=== PATIENT | female | born 1985 | race Caucasian/White ===

== ENCOUNTER → 2018-01-19 14:10 | Outpatient (CLI) | payer BC, SELFPAY | PROVIDERS: Family Provider Physician Assistant; PCP Physician Assistant; Visit Provider Nurse Practitioner Women's Health | DX: R30.0 Dysuria (principal) | CPT/HCPCS: 87086 ==

== ENCOUNTER → 2018-04-24 17:49 | Outpatient (CLI) | payer BC, SELFPAY | PROVIDERS: Family Provider Physician Assistant; PCP Physician Assistant; Visit Provider Nurse Practitioner Women's Health | DX: N76.0 Acute vaginitis (principal) | CPT/HCPCS: 87070; 87086; 87205 ==

== ENCOUNTER → 2018-06-11 10:56 | Outpatient (CLI) | payer BC, SELFPAY ==
[2018-06-11 11:51] LABS: hCG Titer Quant., Serum < 1 mIU/mL (<9 non-preg)
== END ==
PROVIDERS: Family Provider Physician Assistant; PCP Physician Assistant; Referring Provider Obstetrics & Gynecology; Visit Provider Obstetrics & Gynecology
DX: N91.2 Amenorrhea, unspecified (principal)
CPT/HCPCS: 36415; 84702

== ENCOUNTER → 2018-06-26 18:30 | Outpatient (CLI) | payer BC, SELFPAY | PROVIDERS: Family Provider Physician Assistant; PCP Physician Assistant; Visit Provider Obstetrics & Gynecology | DX: R30.0 Dysuria (principal) | CPT/HCPCS: 87086; 87088 ==

== ENCOUNTER → 2018-10-08 13:45 | Outpatient (CLI) | payer BC, SELFPAY ==
[2018-10-08 14:19] LABS: hCG Titer Quant., Serum < 1 mIU/mL (<9 non-preg)
== END ==
PROVIDERS: Family Provider Physician Assistant; PCP Physician Assistant; Visit Provider Obstetrics & Gynecology
DX: N91.2 Amenorrhea, unspecified (principal)
CPT/HCPCS: 36415; 84702

== ENCOUNTER → 2018-10-12 14:53 | Outpatient (CLI) | payer BC, SELFPAY ==
[2018-10-12 15:38] LABS: hCG Titer Quant., Serum 22 mIU/mL (<9 non-preg)
== END ==
PROVIDERS: Family Provider Physician Assistant; PCP Physician Assistant; Referring Provider Obstetrics & Gynecology; Visit Provider Obstetrics & Gynecology
DX: N91.2 Amenorrhea, unspecified (principal)
CPT/HCPCS: 36415; 84702

== ENCOUNTER → 2018-10-22 11:35 | Outpatient (CLI) | payer BC, SELFPAY ==
[2018-06-21 07:55] VITALS: BMI 31.0
[2018-10-22 13:12] LABS: hCG Titer Quant., Serum 1724 mIU/mL (<9 non-preg)
== END ==
PROVIDERS: Family Provider Physician Assistant; PCP Physician Assistant; Referring Provider Obstetrics & Gynecology; Visit Provider Obstetrics & Gynecology
DX: N91.2 Amenorrhea, unspecified (principal)
CPT/HCPCS: 36415; 84702; 84703

== ENCOUNTER → 2018-11-12 07:42 | Outpatient (CLI) | payer BC, SELFPAY ==
[2018-11-12 08:23] LABS: Absolute Lymphocyte Count 3.15 X10^3/ul (0.83-4.51); Absolute Neutrophil Count 5.4 X10^3/uL (2.0-7.7); Basophil# 0.01 X10^3/uL; Basophil% 0.1 % (0-1); Eosinophils% 1.1 % (0-5); Hematocrit 44.3 % (37-47); Hemoglobin 14.3 g/dl (12.0-15.0); Lymphocyte # 3.15 X10^3/ul (4.0); Lymphocyte % 35.1 % (19-41); Mean Corp Hgb Conc 32.3 g/gl (32-36); Mean Corpuscular Hgb 28.3 pg (27.0-32.0); Mean Corpuscular Volume 87.5 fL (81-99); Mean Platelet Vol. 9.2 fl (6.2-12.0); Monocyte# 0.28 X10^3/uL; Monocyte% 3.1 % (0-10); Neutrophil # 5.42 X10^3/uL (2.7-7.7); Neutrophil % 60.4 % (47-70); Platelet Count 253 K/mm3 (150-450); RBC Distribution Width CV 13.9 % (11.6-14.6); RBC Distribution Width SD 44.2 fl (35.1-43.9); Red Blood Count 5.06 M/mm3 (4.2-5.4)
[2018-11-12 08:28] LABS: POSITIVE COUNT NO; POSITIVE DIFFERENTIAL NO; POSITIVE MORPHOLOGY NO
[2018-11-12 08:56] LABS: Glucose Challenge Gest 1H 50g 133 mg/dL (70-140)
[2018-11-12 09:47] LABS: HIV - WCH Non-Reactive (Nonreactive); Rubella IgG 30.4 IU/mL
[2018-11-12 19:01] LABS: Chlamydia Trachomatis by PCR Negative (Negative); Neisserai gonorrhoeae by PCR Negative (Negative); Probe Check PASS; Sample Adequacy Control PASS; Specimen Processing Control PASS
[2018-11-13 11:19] LABS: HEPATITIS B SURFACE AG Negative (Negative)
[2018-11-16 02:05] LABS: Rapid Plasmin Reagin (RPR) NONREACTIVE (NONREACTIVE)
== END ==
PROVIDERS: Obstetrics & Gynecology; Family Provider Physician Assistant; PCP Physician Assistant; Referring Provider Nurse Practitioner Women's Health; Visit Provider Nurse Practitioner Women's Health
DX: O99.210 Obesity complicating pregnancy, unspecified trimester (principal); Z3A.00 Weeks of gestation of pregnancy not specified
CPT/HCPCS: 36415; 82950; 85025; 86592; 86703; 86762; 86850; 86900; 87086; 87088; 87340; 87491; 87591

== ENCOUNTER → 2018-11-26 13:23 | Outpatient (CLI) | payer BC, SELFPAY ==
[2018-11-12 16:47] VITALS: BMI 31.0
== END ==
PROVIDERS: Family Provider Physician Assistant; PCP Physician Assistant; Visit Provider Obstetrics & Gynecology
DX: Z34.81 Encounter for supervision of other normal pregnancy, first trimester (principal)
CPT/HCPCS: 36415

== ENCOUNTER → 2019-01-09 14:17 | Outpatient (CLI) | payer BC, SELFPAY ==
[2019-01-09 12:07] VITALS: BMI 31.0
== END ==
PROVIDERS: Family Provider Physician Assistant; PCP Physician Assistant; Visit Provider Obstetrics & Gynecology
DX: Z36.9 Encounter for antenatal screening, unspecified (principal)
CPT/HCPCS: 36415

== ENCOUNTER → 2019-02-12 07:58 | Outpatient (CLI) | payer BC, SELFPAY ==
[2019-02-06 13:25] VITALS: BMI 31.0
== END ==
PROVIDERS: Family Provider Physician Assistant; PCP Physician Assistant; Referring Provider Nurse Practitioner Women's Health; Visit Provider Nurse Practitioner Women's Health
DX: R19.7 Diarrhea, unspecified (principal)
CPT/HCPCS: 83630; 87493; 87506

== ENCOUNTER → 2019-03-21 11:14 | Outpatient (CLI) | payer BC, SELFPAY ==
[2019-03-08 12:43] VITALS: BMI 33.2
[2019-03-21 11:31] LABS: Absolute Lymphocyte Count 3.54 X10^3/uL (0.83-4.51); Absolute Neutrophil Count 7.6 X10^3/uL (2.0-7.7); Basophil# 0.03 X10^3/uL; Basophil% 0.2 % (0-1); Eosinophil# 0.16 X10^3/uL; Eosinophils% 1.3 % (0-5); Hematocrit 37.3 % (37-47); Hemoglobin 12.7 g/dL (12.0-15.0); Lymphocyte # 3.54 X10^3/ul (4.0); Lymphocyte % 29.4 % (19-41); Mean Corpuscular Hgb 29.5 pg (27.0-32.0); Mean Corpuscular Volume 86.7 fL (81-99); Monocyte# 0.58 X10^3/uL; Monocyte% 4.8 % (0-10); NRBC Flagged by Analyzer 0 % (0-5); Neutrophil # 7.64 X10^3/uL (2.7-7.7); Neutrophil % 63.5 % (47-70); Platelet Count 222 K/mm3 (150-450); RBC Distribution Width CV 14.1 % (11.6-14.6); RBC Distribution Width SD 44.6 fl (35.1-43.9); White Blood Count 12.1 K/mm3 (4.4-11.0)
[2019-03-21 11:39] LABS: Glucose Challenge Gest 1H 50g 118 mg/dL (70-140)
== END ==
PROVIDERS: Family Provider Physician Assistant; PCP Physician Assistant; Referring Provider Obstetrics & Gynecology; Visit Provider Obstetrics & Gynecology
DX: Z34.80 Encounter for supervision of other normal pregnancy, unspecified trimester (principal); Z3A.00 Weeks of gestation of pregnancy not specified
CPT/HCPCS: 36415; 82950; 85025

== ENCOUNTER → 2019-04-01 12:20 | Outpatient (CLI) | payer BC, SELFPAY ==
[2019-03-08 12:43] VITALS: BMI 33.2
[2019-03-27 13:30] VITALS: BMI 33.2
--- NOTE | 2019-04-01 12:22 | US_ITS ---
STUDY: SECOND AND THIRD TRIMESTER OBSTETRICAL ULTRASOUND REASON FOR EXAM: Female, 33 years old. History of low-lying placenta. LMP: September 12, 2018. TECHNIQUE: Transabdominal TECHNICAL QUALITY: Adequate. PRIOR ULTRASOUND: None. FINDINGS: There is a single intrauterine fetus. The fetus is in a breech presentation. There is demonstrated cardiac activity with a heart rate of 123 bpm. There is a normal amniotic fluid volume. The largest amniotic fluid pocket measures 7.2 cm x 4.2 cm. The amniotic fluid index ([place]) is within normal limits. The placenta is posterior in location and is not low lying. The tip of the placenta is at 4 cm proximal to the cervical os. There are Grade 0 placental changes. The cervix measures 4.6 cm in length. The adnexal regions are not visualized. BIOMETRY: BPD: 6.62 cm: 26 weeks, 5 days HC: 26.06 cm: 28 weeks, 3 days AC: 25.5 cm: 29 weeks, 5 days FL: 5.1 once on the: 27 weeks, 3 days CI: 72% FL/BPD: 77% FL/HC: FL/AC: 20% HC/AC: 1.02 age by current US: 28 weeks, 1 days. MARCO by current US: June 23, 2019. Estimated weight: 1250 grams, +/- 182 grams, 32 %. Age by LMP: 28 weeks, 5 days. MARCO by LMP: June 19, 2019. US/OB Limited With Biometrics IMPRESSION: Single live intrauterine gestation with a mean gestational age of 28 weeks and 1 day. Electronically Signed: Gee Lawson, at 15:50 EDT , Service support ,
== END ==
PROVIDERS: Family Provider Physician Assistant; PCP Physician Assistant; Referring Provider Obstetrics & Gynecology; Visit Provider Obstetrics & Gynecology
DX: O44.42 Low lying placenta NOS or without hemorrhage, second trimester (principal); Z3A.00 Weeks of gestation of pregnancy not specified
CPT/HCPCS: 76816

== ENCOUNTER → 2019-04-18 12:07 | Outpatient (CLI) | payer BC, SELFPAY ==
[2019-04-12 08:28] VITALS: BMI 33.2
[2019-04-18 12:21] LABS: Protein, Urine (Random) 12.5 mg/dL (<11.9); Protein:Creat Ratio 113 mg/g CRE (0-200)
[2019-04-18 13:27] LABS: Absolute Lymphocyte Count 3.18 X10^3/uL (0.83-4.51); Absolute Neutrophil Count 8.4 X10^3/uL (2.0-7.7); Basophil# 0.02 X10^3/uL; Basophil% 0.2 % (0-1); Eosinophil# 0.08 X10^3/uL; Eosinophils% 0.6 % (0-5); Hematocrit 35.3 % (37-47); Hemoglobin 11.5 g/dL (12.0-15.0); Lymphocyte # 3.18 X10^3/ul (4.0); Lymphocyte % 25.6 % (19-41); Mean Corp Hgb Conc 32.6 g/dL (32-36); Mean Corpuscular Hgb 28.2 pg (27.0-32.0); Mean Corpuscular Volume 86.5 fL (81-99); Mean Platelet Vol. 9.5 fl (6.2-12.0); Monocyte# 0.69 X10^3/uL; Monocyte% 5.6 % (0-10); NRBC Flagged by Analyzer 0 % (0-5); Neutrophil # 8.36 X10^3/uL (2.7-7.7); Neutrophil % 67.3 % (47-70); Platelet Count 188 K/mm3 (150-450); RBC Distribution Width CV 14.3 % (11.6-14.6); RBC Distribution Width SD 45.1 fl (35.1-43.9); Red Blood Count 4.08 M/mm3 (4.2-5.4); White Blood Count 12.4 K/mm3 (4.4-11.0)
[2019-04-18 14:11] LABS: ALB/GLOB Ratio 0.6 RATIO (0.9-2.4); AST(SGOT) 12 U/L (15-37); Alanine Aminotransfer ALT/SGPT 15 U/L (13-56); Albumin, Serum 2.6 g/dL (3.2-5.0); Alkaline Phosphatase 101 U/L (45-117); Anion Gap 8 (5-15); BUN 7 mg/dL (7-18); BUN/Creat Ratio 11.1 RATIO (10-20); Calcium,Total 8.8 mg/dL (8.5-10.1); Chloride 109 mmol/L (98-107); Creatinine, Serum 0.63 mg/dL (0.55-1.02); EST Glomerular Filtration Rate 117 mL/min (>60); Est Glom Filt Rate - Afr Amer 141 mL/min (>60); Globulin 4.4 g/dL (2.2-4.2); Glucose 96 mg/dL (74-106); LDH 193 U/L (84-246); Potassium 3.8 mmol/L (3.5-5.1); Sodium Level 138 mmol/L (136-145); Uric Acid 3.6 mg/dL (2.6-6.0)
== END ==
LOC: LABSPEC 12:08 → LAB 12:20
PROVIDERS: Family Provider Physician Assistant; PCP Physician Assistant; Referring Provider Nurse Practitioner Women's Health; Visit Provider Nurse Practitioner Women's Health
DX: O13.9 Gestational [pregnancy-induced] hypertension without significant proteinuria, unspecified trimester (principal); Z3A.00 Weeks of gestation of pregnancy not specified
CPT/HCPCS: 36415; 80053; 82570; 83615; 84156; 84550; 85025

== ENCOUNTER 2019-04-19 15:51 | Outpatient (CLI) | payer BC, SELFPAY ==
[2019-04-12 08:28] VITALS: BMI 33.2
[2019-04-19 16:13] LABS: Protein, Urine (Random) 12.7 mg/dL (<11.9); Protein:Creat Ratio 192 mg/g CRE (0-200)
[2019-04-19 17:14] VITALS: BMI 35.2
[2019-04-19 17:46] LABS: Hematocrit 35.3 % (37-47); Hemoglobin 11.6 g/dL (12.0-15.0); Mean Corp Hgb Conc 32.9 g/dL (32-36); Mean Corpuscular Hgb 28.1 pg (27.0-32.0); Mean Corpuscular Volume 85.5 fL (81-99); Mean Platelet Vol. 9.4 fl (6.2-12.0); Platelet Count 174 K/mm3 (150-450); RBC Distribution Width CV 14.1 % (11.6-14.6); RBC Distribution Width SD 44.2 fl (35.1-43.9); Red Blood Count 4.13 M/mm3 (4.2-5.4); White Blood Count 11.9 K/mm3 (4.4-11.0)
[2019-04-19 17:59] LABS: AST(SGOT) 13 U/L (15-37); Alanine Aminotransfer ALT/SGPT 14 U/L (13-56); Creatinine, Serum 0.52 mg/dL (0.55-1.02); EST Glomerular Filtration Rate 144 mL/min (>60); Est Glom Filt Rate - Afr Amer 175 mL/min (>60); Estimated Creatinine Clearance 129.67 ml/min; Uric Acid 3.4 mg/dL (2.6-6.0)
--- NOTE | 2019-04-19 18:19 | OB.TRI.NOTE ---
- Problem List (1) Elevated blood pressure affecting in third trimester, antepartum Status: Acute History of Present Illness Date of Service: 04/23/19 Was patient seen by the physician?: Yes Reason For Visit: R/O PRE E Date of Service: 04/19/19 Final MARCO Source: LMP History of Present Illness: Patient presents secondary to elevated blood pressures in the office. Normal blood pressures on labor and delivery and normal labs. Negative proteinuria. Allergies hydrocodone Allergy (Verified 04/12/19 08:10) Rash Sulfa (Sulfonamide Antibiotics) Allergy (Verified 04/12/19 08:10) Rash - Pertinent Past Medical History Medical History: Past Medical History (Last Reviewed 04/12/19 @ 08:10 by Chantel Machado) Abnormal Pap smear of cervix Anxiety Iron deficiency anemia during Kidney stones Thyromegaly Surgical History: Past Surgical History (Last Reviewed 04/12/19 @ 08:10 by Chantel Machado) H/O colonoscopy H/O colposcopy with cervical biopsy H/O lithotripsy H/O tooth extraction History of esophagogastroduodenoscopy (EGD) History of tonsillectomy S/P bunionectomy left foot S/P cholecystectomy Laboratory Studies: Laboratory Tests 04/19/19 04/19/19 04/19/19 Range/Units 17:35 17:35 17:35 WBC 11.9 H (4.4-11.0) K/mm3 RBC 4.13 L (4.2-5.4) M/mm3 Hgb 11.6 L (12.0-15.0) g/dL Hct 35.3 L (37-47) % MCV 85.5 (81-99) fL MCH 28.1 (27.0-32.0) pg MCHC 32.9 (32-36) g/dL RDW Std Deviation 44.2 H (35.1-43.9) fl RDW Coeff of Yuni 14.1 (11.6-14.6) % Plt Count 174 (150-450) K/mm3 MPV 9.4 (6.2-12.0) fl PT Cancelled INR Cancelled APTT Cancelled Creatinine 0.52 L (0.55-1.02) mg/dL Estim Creat Clear Calc 129.67 ml/min Est GFR (MDRD) Af Amer 175 (>60) mL/min Est GFR (MDRD) Non-Af 144 (>60) mL/min Uric Acid 3.4 (2.6-6.0) mg/dL AST 13 L (15-37) U/L ALT 14 (13-56) U/L U Random Total Protein (<11.9) mg/dL Urine Creatinine (NO RANGE EST.) mg/dL Protein/Creatinin Ratio (0-200) mg/g CRE 04/19/19 Range/Units 15:59 WBC (4.4-11.0) K/mm3 RBC (4.2-5.4) M/mm3 Hgb (12.0-15.0) g/dL Hct (37-47) % MCV (81-99) fL MCH (27.0-32.0) pg MCHC (32-36) g/dL RDW Std Deviation (35.1-43.9) fl RDW Coeff of Yuni (11.6-14.6) % Plt Count (150-450) K/mm3 MPV (6.2-12.0) fl PT INR APTT Creatinine (0.55-1.02) mg/dL Estim Creat Clear Calc ml/min Est GFR (MDRD) Af Amer (>60) mL/min Est GFR (MDRD) Non-Af (>60) mL/min Uric Acid (2.6-6.0) mg/dL AST (15-37) U/L ALT (13-56) U/L U Random Total Protein 12.7 H (<11.9) mg/dL Urine Creatinine 66.20 (NO RANGE EST.) mg/dL Protein/Creatinin Ratio 192 (0-200) mg/g CRE NST - FHR Rate Baby A Baseline: 140 Variability:: Moderate Accelerations:: 15 x 15 Decelerations:: None NST Reactive:: Yes FHR Category:: Category I Uterine Activity:: no Regular contractions Impression/Plan Elevated blood pressure in the office repeat blood pressures on labor and delivery within normal limits laboratory evaluation and urine negative for preeclampsia category 1 tracing reactive NST recommend steroid course due to initial dose already being given and recommend follow-up in office checking blood pressures over the weekend at home. Multi Select Codes - Urinary/Genital Urinary/Genital CPT Codes: 24446-13 non-stress test Interp
== END 2019-04-19 18:40 | disposition home or self-care (01) ==
LOC: LABSPEC 15:53 → WPOUT 16:59 → WP 17:00
PROVIDERS: Family Provider Physician Assistant; PCP Physician Assistant; Referring Provider Obstetrics & Gynecology; Visit Provider Obstetrics & Gynecology
DX: O26.893 Other specified pregnancy related conditions, third trimester (principal); R03.0 Elevated blood-pressure reading, without diagnosis of hypertension; O99.013 Anemia complicating pregnancy, third trimester; D50.9 Iron deficiency anemia, unspecified; F41.9 Anxiety disorder, unspecified; Z88.5 Allergy status to narcotic agent; Z88.2 Allergy status to sulfonamides; Z87.442 Personal history of urinary calculi; Z3A.00 Weeks of gestation of pregnancy not specified
CPT/HCPCS: 36415; 59025; 59050; 82565; 82570; 84156; 84450; 84460; 84550; 85027; 99218; G0378

== ENCOUNTER → 2019-05-13 08:31 | Outpatient (CLI) | payer BC, SELFPAY ==
[2019-05-07 15:11] VITALS: BMI 35.4
== END ==
PROVIDERS: Family Provider Physician Assistant; PCP Physician Assistant; Referring Provider Nurse Practitioner Women's Health; Visit Provider Nurse Practitioner Women's Health
DX: J02.9 Acute pharyngitis, unspecified (principal)
CPT/HCPCS: 87880

== ENCOUNTER → 2019-05-24 14:03 | Outpatient (CLI) | payer BC, SELFPAY ==
[2019-05-24 13:26] VITALS: BMI 35.4
== END ==
PROVIDERS: Family Provider Physician Assistant; PCP Physician Assistant; Visit Provider Obstetrics & Gynecology
DX: N89.8 Other specified noninflammatory disorders of vagina (principal); Z3A.36 36 weeks gestation of pregnancy
CPT/HCPCS: 87070; 87077; 87081; 87186; 87205

== ENCOUNTER 2019-06-18 04:20 | Inpatient (IN) | payer BC, SELFPAY ==
[2019-06-12 08:06] VITALS: BMI 35.4
[2019-06-18 05:08] VITALS: BMI 36.8
[2019-06-18] MEDS: Lactated Ringers 500 ML 999 ML IV ×3 (05:30→13:35)
[2019-06-18] MEDS: Lactated Ringers 1,000 ML 50 ML IV (05:44)
[2019-06-18 05:48] LABS: Absolute Lymphocyte Count 3.02 X10^3/uL (0.83-4.51); Absolute Neutrophil Count 10.6 X10^3/uL (2.0-7.7); Basophil# 0.04 X10^3/uL; Basophil% 0.3 % (0-1); Eosinophil# 0.22 X10^3/uL; Eosinophils% 1.5 % (0-5); Hemoglobin 11.4 g/dL (12.0-15.0); Lymphocyte # 3.02 X10^3/ul (4.0); Lymphocyte % 20.3 % (19-41); Mean Corp Hgb Conc 31.7 g/dL (32-36); Mean Corpuscular Hgb 25.4 pg (27.0-32.0); Mean Corpuscular Volume 80.4 fL (81-99); Mean Platelet Vol. 9.6 fl (6.2-12.0); NRBC Flagged by Analyzer 0 % (0-5); Neutrophil # 10.62 X10^3/uL (2.7-7.7); Neutrophil % 71.2 % (47-70); Platelet Count 193 K/mm3 (150-450); RBC Distribution Width CV 15.9 % (11.6-14.6); RBC Distribution Width SD 45.4 fl (35.1-43.9); Red Blood Count 4.48 M/mm3 (4.2-5.4); White Blood Count 14.9 K/mm3 (4.4-11.0)
[2019-06-18] MEDS: Ondansetron 4 MG/2 ML Vial IV ×2 (06:13→14:36)
[2019-06-18] MEDS: fentaNYL-bupivacaine (epidural) 100 ML BAG EPIDURAL ×2 (06:59→11:26)
[2019-06-18] MEDS: Amnioinfusion- 0.9% NS 1,000 ML IV.SOLN. INTRA-UTER (08:04)
--- NOTE | 2019-06-18 09:55 | HP.PCM_ITS ---
- Problem List (1) PROM (premature rupture of membranes) Status: Acute (2) Positive GBS test Status: Acute Comment: Penicillin at delivery (3) Shingles outbreak Status: Acute Comment: 03/27/20 treated (4) screening encounter Status: Acute Comment: NIPT low risk- male- AFP-negative (5) HSV (herpes simplex virus) infection Status: Acute Comment: valtrex starting at 36 weeks (6) Supervision of other normal Status: Acute Comment: PRR MARCO 06/19/19 Boy: Salo Sanchez Spouse TJ (7) Status: Acute Qualifiers: Weeks of gestation: 39 weeks Qualified Code(s): Z3A.39 - 39 weeks gestation of Comment: genetic-low risk (male) (8) History of depression Status: Chronic Comment: no meds (9) Crohns disease Status: Chronic Qualifiers: Gastrointestinal tract location: unspecified location Digestive disease complication type: without complication Qualified Code(s): K50.90 - Crohn's disease, unspecified, without complications Comment: no meds. remission History Date of Admission: 06/29/17 Final MARCO: 06/19/19 Final MARCO Source: LMP Gestational age: 40 Weeks and 0 Days History of this : This is a 34 year-old, at 39 weeks gestational age presents in active labor with premature rupture of membranes but some contractions.. Patient denies any vaginal bleeding but admits copious amounts of clear fluid since 230 this morning she has had an uncomplicated . Medical History: Medical History (Last Reviewed 06/12/19 @ 08:06 by Chantel Machado) Abnormal Pap smear of cervix R87.619 Anxiety F41.9 Iron deficiency anemia during O99.019, D50.9 Kidney stones N20.0 Thyromegaly E01.0 Surgical History: Surgical History (Last Reviewed 06/12/19 @ 08:06 by Chantel Machado) H/O colonoscopy Z98.890 H/O colposcopy with cervical biopsy Z98.890 H/O lithotripsy Z98.890 H/O tooth extraction K08.409 History of esophagogastroduodenoscopy (EGD) Z98.890 History of tonsillectomy Z90.89 S/P bunionectomy Z98.890 left foot S/P cholecystectomy Z90.49 Allergies hydrocodone Allergy (Verified 06/18/19 05:08) Rash Sulfa (Sulfonamide Antibiotics) Allergy (Verified 06/18/19 05:08) Rash Home Medications: Home Medications vitamin#30 30 mg iron-10 mg iron-folic acid 1 mg-omg3 capsule 1 cap PO DAILY cap 04/12/19 Citalopram Hydrobromide [Citalopram HBr] 40 mg PO DAILY 06/18/19 Ranitidine HCl 150 mg PO BID 06/18/19 Valacyclovir HCl [Valtrex] 500 mg PO QDAY 06/18/19 Smoking Status: Never smoker Alcohol: None Number of Fetus(es): 1 NST - FHR Rate Baby A Baseline: 130 Variability:: Moderate Accelerations:: 15 x 15 Decelerations:: Prolonged - Occasional NST Reactive:: Yes FHR Category:: Category II Uterine Activity:: Every 5 to 10 minutes History Past Pregnancies: Past Pregnancies previous term vaginal delivery uncomplicated SROM Labs: Mom's Labs & Results 06/18/19 06/18/19 05:30 05:30 WBC 14.9 H RBC 4.48 Hgb 11.4 L Hct 36.0 L MCV 80.4 L MCH 25.4 L MCHC 31.7 L RDW Std Deviation 45.4 H RDW Coeff of Yuni 15.9 H Plt Count 193 MPV 9.6 Immature Gran % (Auto) 0.700 Neut % (Auto) 71.2 H Lymph % (Auto) 20.3 Grady % (Auto) 6.0 Eos % (Auto) 1.5 Baso % (Auto) 0.3 Absolute Neuts (auto) 10.6 H Absolute Lymphs (auto) 3.02 Nucleated RBC % 0 Blood Type O POSITIVE Antibody Screen NEGATIVE Course Did the patient receive Yes care? Labs Blood Type: O RH: POSITIVE RPR/VDRL/Syphilis Nonreactive Rubella status Immune HbSAg Negative Date Done: 11/12/18 Chlamydia Negative Gonorrhea Negative HIV/AIDS Non-Reactive Group B Strep: Positive Current Obstetrical History Gestational Diabetes No Incompetent Cervix No Infertility No IUGR No Macrosomia No Hypertension/Pre-eclampsia No Placenta Previa/Abruption No PTL/PROM No Uterine anomaly No Oligohydramnios No Polyhydramnios No Multiple gestation No Past Medical History Asthma No Diabetes No Hypertension No Heart disease No Mitral valve prolapse No Neurologic/Seizure disorder/ Yes: migraines Migraines Kidney disease No: kidney stones Liver disease No Varicosities No Clotting disorders/Hx of DVT No Thyroid Dysfunction No Other medical diseases Yes: Crohn's Disease Psychiatric disorders Yes: anxiety/depression Major trauma No Abnormal PAP smear Yes Sleep apnea No Mammogram in the last 2 years No Social History Marital Status: Alleged father TJ Hx Smoking No Smoking Status Never smoker Expected Infant Delivery Method: Spontaneous Vaginal Review of Systems Constitutional: Denies: Fever, Malaise Eyes: Denies: Blurred vision, Vision Change HEENT: Denies: Head Aches, Visual Changes Cardiovascular: Denies: Chest Pain, Palpitations Respiratory: Denies: Cough, Shortness of Breath, Wheezing Gastrointestinal: Denies: Abdominal Pain, Diarrhea, Nausea, Vomiting Genitourinary: Denies: Dysuria, Hematuria Musculoskeletal: Denies: Joint Pain, Muscle pain Skin: Denies: Lesions, Rash Neurological: Denies: Blurred vision, Focal weakness, Headaches Psychiatric: Denies: Anxiety, Depression Endocrine: Denies: Heat/ Cold Intolerance Hematologic/ Lymphatic: Denies: Easy Bruising, Easy Bleeding Physical Exam General: Alert, Cooperative, No apparent distress HEENT: Atraumatic, Normocephalic. Negative for: Thyromegaly, Lymphadenopathy Cardiovascular: Regular rate Lungs: Normal air movement Abdomen: Soft, Non Tender, Gravid Neurological: Deep Tendon Reflexes 2+/4 and Symmetrical, Neuro grossly intact. Negative for: Clonus [employer]: Normal external genitalia. Negative for: Vulvar lesions Estimated gestational size: Appropriate for gestational size Presentation: Cephalic Cervix Dilation (cm): 3 Assessment/Plan All Active Problems (Last Reviewed 06/12/19 @ 08:06 by Chantel Machado) PROM (premature rupture of membranes) (Acute) Positive GBS test (Acute) Shingles outbreak (Acute) screening encounter (Acute) HSV (herpes simplex virus) infection (Acute) Supervision of other normal (Acute) (Acute) BMI 31.0-31.9,adult (Resolved) Elevated blood pressure affecting in third trimester, antepartum (Resolved) Low lying placenta nos or without hemorrhage, second trimester (Resolved) This is a 34 year-old, G 2P1 at 39 weeks gestational age presents with premature rupture of membranes Abuse positive plan penicillin Epidural as needed Expectant management with possible Pitocin augmentation if needed.
[2019-06-18] MEDS: Lactated Ringers 1,000 ML 200 ML IV (11:21)
--- NOTE | 2019-06-18 11:46 | PCM.PN.BLA ---
Progress Note Intermittent prolonged decelerations. Overall reassuring status with some cervical change. Still expectant management at this time. Now category 1 tracing. Previously category 2 with 120s to 130s moderate variability positive scalp stimulation with several prolonged decelerations down into the 70s to 80s. Isolated late decelerations. Occasional early deceleration. Will start Pitocin per protocol if reassuring status and no cervical change on next exam
[2019-06-18] MEDS: Oxytocin 30 units/NS 500 ml 30 UNITS/500 ML IV.SOLN IV (12:28)
[2019-06-18] MEDS: 0.9% Saline Lock 10 ML Syringe IV ×2 (14:36→18:11)
[2019-06-18] MEDS: Oxytocin 30 units/NS 500 ml 30 UNITS/500 ML IV.SOLN 334 UNITS IV (15:18)
[2019-06-18 18:30] VITALS: BP 110/68; PULSE 102; RESP 16; TEMP 37.3; O2SAT 96
[2019-06-18 19:50] VITALS: BP 121/65; PULSE 98; RESP 16; TEMP 36.4
[2019-06-19 00:35] VITALS: BP 113/65; PULSE 87; RESP 17; TEMP 35.8
[2019-06-19] MEDS: Naproxen 250 MG Tablet 500 MG PO ×2 (00:43→08:58)
[2019-06-19 04:20] VITALS: BP 107/67; PULSE 81; RESP 16
[2019-06-19 08:48] VITALS: BP 110/73; PULSE 80; RESP 18; TEMP 36.2
--- NOTE | 2019-06-19 08:54 | PCM.PN.OB ---
Subjective: doing well no complaints pain controlled no CP SOB N V ambulating well tolerating po lochia moderate, going well - Physical Exam Vitals/I&O's: Vital Signs Temp Pulse Resp BP Pulse Ox 97.1 F L 80 18 110/73 96 06/19/19 08:48 06/19/19 08:48 06/19/19 08:48 06/19/19 08:48 06/18/19 18:30 Oxygen Delivery Method Room Air Weight: 208 lb 1.862 oz Body Mass Index (BMI) 36.8 Intake and Output for Last 24 Hours 06/17/19 06/18/19 06/19/19 23:59 23:59 23:59 Intake Total 3526.76 / 3526.76 Output Total 1325 / 1325 Balance 2201.76 / 2201.76 General: Alert, Oriented x3 Abdomen: Soft, Non Tender, Non-Distended, - - FF below U Current Medications Acetaminophen (Tylenol) 1,000 mg PO Q8H PRN PRN PRN Reason: Pain Score 1-3/10 Bisacodyl (Dulcolax) 10 mg RECTAL UD PRN PRN Reason: If no BM Dibucaine (Dibucaine) 1 applic TOPICAL TID PRN PRN; Protocol PRN Reason: Discomfort Hydrocortisone (Hytone) 1 applic TOPICAL TID PRN PRN; Protocol PRN Reason: Discomfort Methylergonovine Maleate (Methergine) 0.2 mg IM X1 PRN PRN Reason: Excess bleeding/uterine atony Naproxen (Naprosyn) 500 mg PO Q8H PRN PRN PRN Reason: Pain Score 1-3/10 Last Admin: 06/19/19 00:43 Dose: 500 mg Documented by: Ondansetron HCl (Zofran) 4 mg IV Q4H PRN PRN PRN Reason: Nausea Oxycodone HCl (Oxyir) 5 - 10 mg PO Q4H PRN PRN PRN Reason: Pain Score 4-10/10 Senna/Docusate Sodium (Senokot-S, Shea-Colace) 1 - 2 tablet PO DAILY PRN PRN PRN Reason: Constipation Simethicone (Mylicon) 80 mg PO PCHS PRN PRN Reason: Indigestion/Stomach pain Sodium Chloride () 5 - 15 ml IV UD PRN PRN Reason: SALINE FLUSH Last Admin: 06/18/19 18:11 Dose: 10 ml Documented by: Medical Necessity - Tobacco Use Smoking Status: Never smoker Assessment/Plan All Active Problems (Last Reviewed 06/12/19 @ 08:06 by Chantel Machado) Positive GBS test (Acute) Shingles outbreak (Acute) screening encounter (Acute) HSV (herpes simplex virus) infection (Acute) Supervision of other normal (Acute) (Acute) BMI 31.0-31.9,adult (Resolved) Elevated blood pressure affecting in third trimester, antepartum (Resolved) Low lying placenta nos or without hemorrhage, second trimester (Resolved) s/p PPD # 1 1. routine post delivery care 2. breast feeding- support given 3. rh positive 4. rubella immune 5. home today
--- NOTE | 2019-06-19 08:55 | DCINST_ITS ---
Additional Instructions: If you experience any of the following, contact your healthcare provider. * Bleeding that soaks a pad every hour for 2 hours * Fever 100.4 or higher * Unrelieved incision or abdominal pain * Swelling, redness, discharge or bleeding from your incision or episiotomy site * Your incision begins to separate * Problems urinating (including inability to urinate or burning while urinating). * Visual changes * Severe headache * Flu-like symptoms * Pain or redness in one of both of your breasts * Pain, warmth, tenderness or swelling in your legs, especially the calf area * Frequent nausea and vomiting * Symptoms of depression or anxiety If you experience any of the following, call 911 or go to the nearest Emergency Room. * Chest pain * Problems breathing * Seizure activity * Partial or complete paralysis of a body part, slurred speech, weakness or drooping of the face, or a sudden inability to walk or hold your balance Allergies/Adverse Reactions: Allergies hydrocodone Allergy (Verified 06/18/19 05:08) Rash Sulfa (Sulfonamide Antibiotics) Allergy (Verified 06/18/19 05:08) Rash Medications to take at Discharge vitamin#30 30 mg iron-10 mg iron-folic acid 1 mg-omg3 capsule 1 cap PO DAILY cap 04/12/19 Citalopram Hydrobromide [Citalopram HBr] 40 mg PO DAILY 06/18/19 Ranitidine HCl 150 mg PO BID 06/18/19 Valacyclovir HCl [Valtrex] 500 mg PO QDAY 06/18/19 Primary Care Physician: Josiah Brunner PA [Primary Care Provider] - Test Results: Test results from this visit will be discussed in further detail at your follow- up appointment, if applicable.
--- NOTE | 2019-06-19 08:55 | PCM.DCVAG ---
Additional Instructions: If you experience any of the following, contact your healthcare provider. Bleeding that soaks a pad every hour for 2 hours Fever 100.4 or higher Unrelieved incision or abdominal pain Swelling, redness, discharge or bleeding from your incision or episiotomy site Your incision begins to separate Problems urinating (including inability to urinate or burning while urinating). Visual changes Severe headache Flu-like symptoms Pain or redness in one of both of your breasts Pain, warmth, tenderness or swelling in your legs, especially the calf area Frequent nausea and vomiting Symptoms of depression or anxiety If you experience any of the following, call 911 or go to the nearest Emergency Room. Chest pain Problems breathing Seizure activity Partial or complete paralysis of a body part, slurred speech, weakness or drooping of the face, or a sudden inability to walk or hold your balance Allergies/Adverse Reactions: Allergies hydrocodone Allergy (Verified 06/18/19 05:08) Rash Sulfa (Sulfonamide Antibiotics) Allergy (Verified 06/18/19 05:08) Rash Medications to take at Discharge vitamin#30 30 mg iron-10 mg iron-folic acid 1 mg-omg3 capsule 1 cap PO DAILY cap 04/12/19 Citalopram Hydrobromide [Citalopram HBr] 40 mg PO DAILY 06/18/19 Ranitidine HCl 150 mg PO BID 06/18/19 Valacyclovir HCl [Valtrex] 500 mg PO QDAY 06/18/19 Primary Care Physician: Josiah Brunner PA [Primary Care Provider] - Test Results: Test results from this visit will be discussed in further detail at your follow-up appointment, if applicable.
[2019-06-19] MEDS: Hydrocortisone 2.5% Crm 1 APPLIC TOPICAL (08:57)
[2019-06-19] MEDS: Senna/Docusate Sodium 1 Tablet PO (09:00)
[2019-06-19 12:00] VITALS: BP 122/81; PULSE 80; RESP 18; TEMP 36.5
[2019-06-19 17:41] VITALS: BP 115/85; PULSE 83; RESP 16; TEMP 36.7; O2SAT 97
--- NOTE | 2019-06-19 21:26 | PCM.OPRPT ---
Problem List (1) PROM (premature rupture of membranes) Status: Acute (2) Positive GBS test Status: Acute Comment: Penicillin at delivery (3) Shingles outbreak Status: Acute Comment: 03/27/20 treated (4) screening encounter Status: Acute Comment: NIPT low risk- male- AFP-negative (5) HSV (herpes simplex virus) infection Status: Acute Comment: valtrex starting at 36 weeks (6) Supervision of other normal Status: Acute Comment: PRR MARCO 06/19/19 Boy: Salo Sanchez Spouse TJ (7) Status: Acute Qualifiers: Weeks of gestation: 39 weeks Qualified Code(s): Z3A.39 - 39 weeks gestation of Comment: genetic-low risk (male) (8) History of depression Status: Chronic Comment: no meds (9) Crohns disease Status: Chronic Qualifiers: Gastrointestinal tract location: unspecified location Digestive disease complication type: without complication Qualified Code(s): K50.90 - Crohn's disease, unspecified, without complications Comment: no meds. remission Vaginal Delivery Maternal Presentation: Active Labor 39 weeks prom Amniotic Membrane Rupture Type: Spontaneous at home Amniotic Fluid Description: Clear Final MARCO: 06/19/19 Gestational age: 40 Weeks and 0 Days Date of Procedure: 06/18/19 Pre-Operative Diagnosis: prom Post-Operative Diagnosis: same Surgery/ Procedure Performed: Spontaneous Vaginal Delivery Type of Anesthesia: Epidural Description of Procedure: Patient began pushing and delivered the head in the ANUJ presentation. The head was delivered atraumatically. The anterior and posterior shoulders delivered without complication followed by the rest of the infant and the was placed on the maternal abdomen. Delayed cord clamping was employed for approximately 60 seconds. Cord was clamped and cut and gentle traction was applied to the cord and the placenta delivered spontaneously immediately following it was noted to be intact with three-vessel cord. The perineum and vagina were inspected and noted to have no laceration. EBL was 100 cc. Patient and infant tolerated delivery well. Presentation: ANUJ Placental Delivery Description: Spontaneous Placenta Disposition: [facility] Cord Entanglement: None Estimated Blood Loss: 100 A gender: Male Episiotomy Description: None Laceration: None Medications given after delivery: IV Pitocin Complications: None
== END 2019-06-19 18:15 | disposition home or self-care (01) | DRG 806 ==
PROVIDERS: Admitting Provider Obstetrics & Gynecology; Family Provider Physician Assistant; PCP Physician Assistant; Referring Provider Obstetrics & Gynecology; Visit Provider Obstetrics & Gynecology
DX: O42.92 Full-term premature rupture of membranes, unspecified as to length of time between rupture and onset of labor (principal); O99.62 Diseases of the digestive system complicating childbirth; K50.90 Crohn's disease, unspecified, without complications; O98.52 Other viral diseases complicating childbirth; B00.9 Herpesviral infection, unspecified; B02.9 Zoster without complications; O99.824 Streptococcus B carrier state complicating childbirth; O76 Abnormality in fetal heart rate and rhythm complicating labor and delivery; D50.9 Iron deficiency anemia, unspecified; O99.344 Other mental disorders complicating childbirth; F32.9 Major depressive disorder, single episode, unspecified; F41.9 Anxiety disorder, unspecified; Z87.442 Personal history of urinary calculi; Z3A.40 40 weeks gestation of pregnancy; Z37.0 Single live birth
CPT/HCPCS: 59050; 85025; 86850; 86900; 86901; 99218; J7030; J7120; A4216; G0378; J2405

== ENCOUNTER → 2019-08-01 12:28 | Outpatient (CLI) | payer BC, SELFPAY ==
[2019-08-01 09:44] VITALS: BMI 36.8
[2019-08-05 16:31] LABS: HPV APTIMA, High Risk Negative (Negative)
== END ==
PROVIDERS: Family Provider Physician Assistant; PCP Physician Assistant; Visit Provider Obstetrics & Gynecology
DX: Z12.4 Encounter for screening for malignant neoplasm of cervix (principal)
CPT/HCPCS: 87624; 88175; G0145

== ENCOUNTER → 2019-08-01 14:23 | Outpatient (CLI) | payer BC, SELFPAY ==
[2019-08-01 09:44] VITALS: BMI 36.8
--- NOTE | 2019-08-01 14:25 | US_ITS ---
STUDY: ULTRASOUND BREAST - LEFT REASON FOR EXAM: Female, 34 years old. Palpable lump left breast. The patient is presently lactating. TECHNIQUE: Axial and longitudinal images of the LEFT breast were performed with a high resolution ultrasound transducer. # OF IMAGES: 24 COMPARISON: None. FINDINGS: LEFT Breast: There is evidence of a 1.8 cm x 1.4 cm x 1 cm complex solid nodular density with cystic areas within the The 9:00 position breast at 3 cm from nipple. This corresponds to the palpable abnormality. This may well present dilated ducts with inspissated milk. Follow-up is recommended as well as clinical correlation. US/Breast Limited Unilateral IMPRESSION: Findings suggestive of inspissated milk within dilated ducts. Follow-up is recommended. ASSESSMENT CATEGORY: BIRADS Category 2: Benign. A letter regarding these results will be sent to the patient by the facility within 30 days. Electronically Signed: Gee Lawson, at 15:36 EST , Service support ,
== END ==
PROVIDERS: Family Provider Physician Assistant; PCP Physician Assistant; Referring Provider Obstetrics & Gynecology; Visit Provider Obstetrics & Gynecology
DX: N63.20 Unspecified lump in the left breast, unspecified quadrant (principal)
CPT/HCPCS: 76642

== ENCOUNTER → 2019-09-13 09:19 | Outpatient (CLI) | payer BC, SELFPAY ==
[2019-08-01 09:44] VITALS: BMI 36.8
--- NOTE | 2019-09-13 09:20 | BI_ITS ---
MAMMOGRAPHY - BILATERAL DIAGNOSTIC REASON FOR EXAM: Female, 34 years old. Left breast lump. PERTINENT HISTORY: Non-contributory. TECHNIQUE: Digital bilateral breast gurdeep (3D mammographic acquisition) in the CC and MLO projections. 2-D mediolateral oblique (MLO) and craniocaudad (CC) views of both breasts were obtained. CAD: Full Field Digital Mammography with Computer Added Detection was performed. COMPARISON: None. FINDINGS: Breast Composition: The breasts are extremely dense, which lowers the sensitivity of mammography. There are no dominant masses or suspicious calcifications. No other significant abnormalities are identified. BI/DIAG MAMM W/CAD, BILAT IMPRESSION: Negative diagnostic mammogram. With the patient''s history of a left breast lump, correlation with ultrasound is recommended. ASSESSMENT CATEGORY: BIRADS Category 0: Incomplete. Need additional imaging evaluation. A letter regarding these results will be sent to the patient by the facility within 30 days. Approximately 10% of breast cancers are not detected by mammography. A normal mammogram should not delay biopsy of a clinically suspicious abnormality. Electronically Signed: Gee Lawson, at 10:27 EST , Service support ,
--- NOTE | 2019-09-13 10:22 | US_ITS ---
STUDY: ULTRASOUND BREAST - LEFT REASON FOR EXAM: Female, 34 years old. Palpable lump left breast. TECHNIQUE: Axial and longitudinal images of the LEFT breast were performed with a high resolution ultrasound transducer. # OF IMAGES: 12 COMPARISON: Comparison is made with prior mammogram dated March 13, 2020 and prior ultrasound of the left breast dated August 01, 2019. FINDINGS: LEFT Breast: The palpable abnormality corresponds to a 1.9 cm x 1.5 cm x 1 cm hypoechoic slightly irregular nodule at the 9:00 position the breast is 6 cm from the nipple. This is essentially unchanged. A biopsy is recommended for further evaluation. US/Breast Limited Unilateral IMPRESSION: Persistent abnormality at the 9:00 position in the breast at 6 cm from nipple. A biopsy is recommended. The patient is not lactating at this time. ASSESSMENT CATEGORY: BIRADS Category 4: Suspicious - Biopsy Should Be Considered. A letter regarding these results will be sent to the patient by the facility within 30 days. Electronically Signed: Gee Lawson, at 8:49 EST , Service support ,
== END ==
PROVIDERS: Family Provider Physician Assistant; PCP Physician Assistant; Referring Provider Obstetrics & Gynecology; Visit Provider Obstetrics & Gynecology
DX: R92.8 Other abnormal and inconclusive findings on diagnostic imaging of breast (principal); N63.20 Unspecified lump in the left breast, unspecified quadrant
CPT/HCPCS: 76642; 77062; 77066; G0279

== ENCOUNTER → 2019-11-22 11:52 | Outpatient (CLI) | payer BC, SELFPAY ==
[2019-11-22 11:38] VITALS: BMI 36.8
[2019-11-22 13:20] LABS: T4 Free Direct 1.05 ng/dL (0.76-1.46); Thyroid Stim Hormone (TSH) 3.53 uIU/mL (0.358-3.74)
== END ==
PROVIDERS: PCP Physician Assistant; Referring Provider Obstetrics & Gynecology; Visit Provider Obstetrics & Gynecology
DX: E04.9 Nontoxic goiter, unspecified (principal)
CPT/HCPCS: 36415; 84439; 84443

== ENCOUNTER → 2019-12-10 | Outpatient (CLI) | payer BC, SELFPAY ==
--- NOTE | 2019-12-10 | IMM_PTH ---
PATIENT: FITZ NICHOLAS LOC: [facility] U#:[id number] AGE/SX: 34/F ROOM: RE12/10/[address]: Dr. Naseem Rose MD : 1985 BED: DIS: 12/10/2019 SPEC #: [id number] RECD: 12/12/19 11:22 STATUS: VIPUL RENETTA #: [id number] MEGHAN: 12/10/19 00:[address]: Naseem Rose DEPT: IMMUNOHISTOCHEMISTRY RECD BY: Sarah Dooley Tissues: A - Left breast, NOS B - Left breast, NOS Procedures: Calponin-1(initial) CK8 (add) MACRO (add) P53 (add) P40 (add) PHYSICIAN & INSTITUTION [place] [id number] SPECIMEN INFORMATION: Tissue Source: A - Left breast tissue at 9 o'clock, B - Left breast tissue at 10 o'clock Clinical Info: Left breast lump x2 Specimen Number: [id number] A & B CPT code: 23503 x2, 44235 x8 METHODOLOGY: Deparaffinized sections of prefer/formalin-fixed tissue or PAP/DQ stained slides are incubated with monoclonal/polyclonal antibodies/oligonucleotide probes. Localization is made via biotin free immunoperoxidase method. Appropriate controls are performed and reacted as expected. Results on target cell population are indicated in the following table: RESULTS: ANTIBODY / CLONE RESULT Block A P40 (BC28) positive Calponin-1 (TE659H) positive Macro (HAM-56) positive P53 (DO-7) negative CK8 ([id number]) positive Block B P40 (BC28) positive Calponin-1 (IZ268O) positive Macro (HAM-56) positive P53 (DO-7) negative CK8 ([id number]) positive These tests were developed and their performance characteristics determined by [facility]. They may not have been cleared or approved by the U.S. Food and Drug Administration. The FDA has determined that such clearance or approval is not necessary. The above immunohistochemical/dualISH markers are ordered and reviewed by the Pathologist. INTERPRETATION: A. Left breast tissue at 9 o'clock, biopsy: Benign breast tissue. B. Left breast tissue at 10 o'clock, biopsy: Benign breast tissue. AM:ankur 12/13/19
--- NOTE | 2019-12-10 | BRBX_PTH ---
PATIENT: FITZ NICHOLAS LOC: [facility]#:[id number] AGE/SX: 34/F ROOM: RE12/10/[address]: Dr. Naseem Rose MD : 1985 BED: DIS: 12/10/2019 SPEC #: [id number] RECD: 12/10/19 09:59 STATUS: VIPUL GOREMeenu #: [id number] MEGHAN: 12/10/19 00:[address]: Naseem Rose DEPT: SURGICAL PATHOLOGY RECD BY: Antwon Heard Tissues: A - Left breast, NOS B - Left breast, NOS Procedures: Surgery Specimen Level IV HEADER OPERATION: Left breast biopsy x2 PRE-OP DIAGNOSIS: Left breast lump x2 TISSUE SUBMITTED: A - Left breast tissue 9 o'clock +6, B - Left breast tissue 10 o'clock +6 MICROSCOPIC DIAGNOSIS A. Left breast at 9 o'clock, needle core biopsy: Focal intraductal hyperplasia without atypia. Fibrocystic change. Focal fat necrosis. See comment. B. Left breast at 10 o'clock, needle core biopsy: Fibrocystic change with focal changes consistent with rupture and associated benign histiocytic reaction. See comment. AM:ankur 12/11/19 COMMENT A & B. Immunohistochemistry ([id number]) supports the above diagnosis. Case has been reviewed in consultation with Dr. Johnson who concurs with the above diagnosis. IDC:SJ MICROSCOPIC DESCRIPTION Slides are reviewed. GROSS DESCRIPTION A - Received in fixative is one container labeled with the patient's name and designated left breast tissue 9 o'clock +6. The specimen consists of multiple elongated fragments of cruz-yellow fibroadipose tissue that in aggregate measure 1 x 0.3 x 0.1 cm. The entire specimen is submitted in one cassette. B - Received in fixative is one container labeled with the patient's name and designated left breast tissue 10 o'clock +6. The specimen consists of multiple elongated fragments of cruz-yellow fibroadipose tissue that in aggregate measure 1.5 x 0.3 x 0.1 cm. The entire specimen is submitted in one cassette. / MARIETTA:ankur 12/10/19 TC:5 CPT: 18276 x2
[2019-12-10 08:56] VITALS: BMI 36.8
== END | disposition home or self-care (01) ==
LOC: LABSPEC 10:14
PROVIDERS: Referring Provider Surgery; Visit Provider Surgery
DX: N63.20 Unspecified lump in the left breast, unspecified quadrant (principal)
CPT/HCPCS: 88305; 88341; 88342

== ENCOUNTER → 2019-12-30 14:57 | Outpatient (CLI) | payer BC, SELFPAY ==
[2019-11-22 11:38] VITALS: BMI 36.8
[2019-12-30 13:55] VITALS: BMI 36.8
--- NOTE | 2019-12-30 14:58 | US_ITS ---
STUDY: THYROID ULTRASOUND REASON FOR EXAM: Female, 34 years old. THYROMEGALY TECHNIQUE: Ultrasound evaluation of the thyroid was performed with real-time and static de leon-scale imaging. COMPARISON: None. FINDINGS: RIGHT LOBE: The right lobe of the thyroid gland is enlarged and measures 5.6 cm x 1.5 cm x 1.1 cm. There is a homogeneous echotexture. There are no demonstrated solid, cystic or complex lesions. LEFT LOBE: The left lobe of the thyroid gland is enlarged and measures 5.4 cm x 1.5 cm by 1.1 cm. There is a homogeneous echotexture. There are no demonstrated solid, cystic or complex lesions. ISTHMUS: The isthmus measures 2.0 mm. The regional lymph nodes are normal. US/Thyroid IMPRESSION: Thyromegaly. No nodules are seen. Electronically Signed: Gee Lawson, at 15:24 EDT , Service support ,
== END ==
PROVIDERS: PCP Physician Assistant; Visit Provider Obstetrics & Gynecology
DX: E04.9 Nontoxic goiter, unspecified (principal)
CPT/HCPCS: 76536

== ENCOUNTER → 2020-01-13 | Outpatient (CLI) | payer BC, SELFPAY ==
[2020-01-13 13:24] VITALS: BMI 36.8
[2020-01-13 16:55] LABS: Absolute Neutrophil Count 6.6 X10^3/uL (2.0-7.7); Basophil# 0.02 X10^3/uL; Basophil% 0.2 % (0-1); Eosinophil# 0.16 X10^3/uL; Eosinophils% 1.5 % (0-5); Hematocrit 44.7 % (37-47); Hemoglobin 14.3 g/dL (12.0-15.0); Lymphocyte % 30.6 % (19-41); Mean Corpuscular Hgb 27.2 pg (27.0-32.0); Mean Platelet Vol. 9.7 fl (6.2-12.0); Monocyte# 0.49 X10^3/uL; Monocyte% 4.7 % (0-10); NRBC Flagged by Analyzer 0 % (0-5); Neutrophil # 6.56 X10^3/uL (2.7-7.7); Neutrophil % 62.7 % (47-70); Platelet Count 258 K/mm3 (150-450); RBC Distribution Width CV 16.4 % (11.6-14.6); RBC Distribution Width SD 49.2 fl (35.1-43.9); Red Blood Count 5.26 M/mm3 (4.2-5.4); White Blood Count 10.5 K/mm3 (4.4-11.0)
[2020-01-13 17:08] LABS: ALB/GLOB Ratio 0.9 RATIO (0.9-2.4); AST(SGOT) 12 U/L (15-37); Alanine Aminotransfer ALT/SGPT 18 U/L (13-56); Albumin, Serum 3.6 g/dL (3.2-5.0); Alkaline Phosphatase 71 U/L (45-117); Anion Gap 7 (5-15); BUN 11 mg/dL (7-18); BUN/Creat Ratio 15.6 RATIO (10-20); Calcium,Total 9.1 mg/dL (8.5-10.1); Chloride 109 mmol/L (98-107); EST Glomerular Filtration Rate 102 mL/min (>60); Est Glom Filt Rate - Afr Amer 123 mL/min (>60); Globulin 4.2 g/dL (2.2-4.2); Glucose 77 mg/dL (74-106); Potassium 3.8 mmol/L (3.5-5.1); Protein, Total 7.8 g/dL (6.4-8.2); Sodium Level 140 mmol/L (136-145); T4 Free Direct 0.91 ng/dL (0.76-1.46); Thyroid Stim Hormone (TSH) 3.67 uIU/mL (0.358-3.74)
== END | disposition home or self-care (01) ==
LOC: LABSPEC 16:09
PROVIDERS: PCP Physician Assistant; Referring Provider Internal Medicine; Visit Provider Internal Medicine
DX: E01.0 Iodine-deficiency related diffuse (endemic) goiter (principal); F32.9 Major depressive disorder, single episode, unspecified; F41.9 Anxiety disorder, unspecified
CPT/HCPCS: 80053; 84439; 84443; 85025

== ENCOUNTER → 2020-06-08 13:51 | Outpatient (CLI) | payer BC, SELFPAY ==
[2020-02-17 13:21] VITALS: BMI 36.8
--- NOTE | 2020-06-08 13:52 | US_ITS ---
STUDY: ULTRASOUND BREAST - LEFT REASON FOR EXAM: Female, 35 years old. Palpable lump left breast. History of prior left breast biopsy. TECHNIQUE: Axial and longitudinal images of the LEFT breast were performed with a high resolution ultrasound transducer. # OF IMAGES: 72 COMPARISON: Comparison is made with prior ultrasound of the left breast dated generally 2019. FINDINGS: LEFT Breast: At the 9 o''clock position of the breast at 6 cm from the nipple, a tissue clip marker is seen from prior biopsy. There is a 1.4 cm x 1.5 cm x 0.9 cm hypoechoic density at the biopsy site. This has decreased in size as compared to prior study. Incidental note is made of a 6 mm x 7 mm x 4 mm cyst at the 8 o''clock position of the breast at 6 cm from the nipple. US/Breast Limited Unilateral IMPRESSION: 1.4 cm x 1.5 cm x 0.9 cm persistent hypoechoic density at the biopsy site with a tissue clip marker. ASSESSMENT CATEGORY: BIRADS Category 2: Benign. A letter regarding these results will be sent to the patient by the facility within 30 days. Electronically Signed: Gee Lawson, at 14:32 EDT , Service support ,
== END ==
PROVIDERS: PCP Internal Medicine; Referring Provider Surgery; Visit Provider Surgery
DX: N63.20 Unspecified lump in the left breast, unspecified quadrant (principal); Z98.890 Other specified postprocedural states
CPT/HCPCS: 76642

== ENCOUNTER → 2020-08-07 10:57 | Outpatient (CLI) | payer BC, SELFPAY ==
[2020-08-03 15:08] VITALS: BMI 32.5
[2020-08-07 11:42] LABS: Vitamin D,25 Hydroxy 17.7 ng/mL
[2020-08-07 11:47] LABS: Cholesterol 189 mg/dL (200); Glucose 89 mg/dL (74-106); High Density Lipoprotein 45 mg/dL; T4 Free Direct 0.95 ng/dL (0.76-1.46); Thyroid Stim Hormone (TSH) 3.31 uIU/mL (0.358-3.74); Triglycerides 277 mg/dL; Very Low Density Lipoprotein 55 mg/dL (5-40)
== END ==
PROVIDERS: PCP Internal Medicine; Referring Provider Obstetrics & Gynecology; Visit Provider Obstetrics & Gynecology
DX: Z13.1 Encounter for screening for diabetes mellitus (principal); Z13.21 Encounter for screening for nutritional disorder; Z13.220 Encounter for screening for lipoid disorders; Z13.29 Encounter for screening for other suspected endocrine disorder
CPT/HCPCS: 36415; 80061; 82306; 82947; 84439; 84443

== ENCOUNTER → 2020-12-14 14:18 | Outpatient (CLI) | payer BC, SELFPAY ==
[2020-08-03 15:08] VITALS: BMI 32.5
--- NOTE | 2020-12-14 14:21 | BI_ITS ---
MAMMOGRAPHY - BILATERAL DIAGNOSTIC REASON FOR EXAM: Female, 35 years old. Six-month follow-up for left breast biopsy. PERTINENT HISTORY: Non-contributory. TECHNIQUE: Digital bilateral breast gurdeep (3D mammographic acquisition) in the CC and MLO projections. 2-D mediolateral oblique (MLO) and craniocaudad (CC) views of both breasts were obtained. CAD: Full Field Digital Mammography with Computer Added Detection was performed. COMPARISON: Comparison is made with prior examination dated 09/13/2019. FINDINGS: Breast Composition: The breasts are heterogeneously dense, which may obscure small masses. There are no dominant masses or suspicious calcifications. 2 patient: Is from prior biopsy are seen in the deep slightly narrowed medial aspect of the left breast. No new mass lesion is seen. No other significant abnormalities are identified. BI/DIAG MAMM W/CAD, BILAT IMPRESSION: Stable bilateral diagnostic mammogram. Status post biopsy in the mid slightly lower medial aspect of the left breast. One year follow-up recommended. (A) ASSESSMENT CATEGORY: BIRADS Category 2: Benign. A letter regarding these results will be sent to the patient by the facility within 30 days. Approximately 10% of breast cancers are not detected by mammography. A normal mammogram should not delay biopsy of a clinically suspicious abnormality. Electronically Signed: Gee Lawson MD at 15:16 EDT , Service support ,
--- NOTE | 2020-12-14 14:21 | US_ITS ---
STUDY: ULTRASOUND BREAST - LEFT REASON FOR EXAM: Female, 35 years old. Follow-up for status post left breast biopsy. TECHNIQUE: Axial and longitudinal images of the LEFT breast were performed with a high resolution ultrasound transducer. # OF IMAGES: 51 COMPARISON: Comparison is made with prior ultrasound of the left breast dated 06/08/2020. FINDINGS: LEFT Breast: A tissue clip marker is seen within a 1.5 cm x 1.4 cm x 0.9 cm hypoechoic nodule at the 9 o''clock position of the breast at 6 cm from nipple. 6 mm x 7 mm x 3 mm cyst is seen at the 8 o''clock position of the breast at 6 sinus from the nipple. This has decreased in size. US/Breast Limited Unilateral IMPRESSION: A tissue clip marker is seen within the hypoechoic nodule at 9 o''clock position of the breast 6 cm from the nipple. ASSESSMENT CATEGORY: BIRADS Category 2: Benign. A letter regarding these results will be sent to the patient by the facility within 30 days. Electronically Signed: Gee Lawson MD at 15:43 EDT , Service support ,
== END ==
PROVIDERS: PCP Internal Medicine; Referring Provider Surgery; Visit Provider Surgery
DX: R92.8 Other abnormal and inconclusive findings on diagnostic imaging of breast (principal); N64.4 Mastodynia
CPT/HCPCS: 76642; 77062; 77066; G0279

== ENCOUNTER → 2021-04-05 14:02 | Outpatient (CLI) | payer BC, SELFPAY ==
[2021-04-05 13:23] VITALS: BMI 36.8
[2021-04-05 15:29] LABS: Absolute Lymphocyte Count 3.36 X10^3/uL (0.83-4.51); Absolute Neutrophil Count 4.4 X10^3/uL (2.0-7.7); Basophil# 0.04 X10^3/uL; Basophil% 0.5 % (0-1); Eosinophil# 0.21 X10^3/uL; Eosinophils% 2.4 % (0-5); Hematocrit 44.9 % (37-47); Hemoglobin 14.8 g/dL (12.0-15.0); Lymphocyte # 3.36 X10^3/ul (0.83-4.51); Mean Corpuscular Hgb 28.7 pg (27.0-32.0); Mean Corpuscular Volume 87.2 fL (81-99); NRBC Flagged by Analyzer 0 % (0-5); Neutrophil # 4.37 X10^3/uL (2.7-7.7); Neutrophil % 50.8 % (47-70); Platelet Count 220 K/mm3 (150-450); RBC Distribution Width SD 45.1 fl (35.1-43.9); Red Blood Count 5.15 M/mm3 (4.2-5.4); White Blood Count 8.6 K/mm3 (4.4-11.0)
[2021-04-05 16:01] LABS: ALB/GLOB Ratio 0.9 RATIO (0.9-2.4); AST(SGOT) 20 U/L (15-37); Alanine Aminotransfer ALT/SGPT 34 U/L (13-56); Albumin, Serum 3.7 g/dL (3.2-5.0); Alkaline Phosphatase 90 U/L (45-117); Anion Gap 6 (5-15); BUN 15 mg/dL (7-18); BUN/Creat Ratio 22.7 RATIO (10-20); Calcium,Total 9.3 mg/dL (8.5-10.1); Chloride 106 mmol/L (98-107); Creatinine, Serum 0.66 mg/dL (0.55-1.02); EST Glomerular Filtration Rate 109 mL/min (>60); Est Glom Filt Rate - Afr Amer 131 mL/min (>60); Globulin 4.2 g/dL (2.2-4.2); Glucose 74 mg/dL (74-106); Potassium 4.2 mmol/L (3.5-5.1); Protein, Total 7.9 g/dL (6.4-8.2); Sodium Level 139 mmol/L (136-145)
== END ==
PROVIDERS: PCP Internal Medicine; Referring Provider Physician Assistant; Visit Provider Physician Assistant
DX: I10 Essential (primary) hypertension (principal)
CPT/HCPCS: 36415; 80053; 85025

== ENCOUNTER → 2021-05-17 13:55 | Outpatient (CLI) | payer BC, SELFPAY ==
[2021-05-17 15:10] LABS: Anion Gap 7 (5-15); BUN 13 mg/dL (7-18); BUN/Creat Ratio 16.4 RATIO (10-20); Calcium,Total 10.1 mg/dL (8.5-10.1); Chloride 106 mmol/L (98-107); Creatinine, Serum 0.79 mg/dL (0.55-1.02); EST Glomerular Filtration Rate 88 mL/min (>60); Est Glom Filt Rate - Afr Amer 107 mL/min (>60); Glucose 96 mg/dL (74-106); Potassium 3.9 mmol/L (3.5-5.1); Sodium Level 138 mmol/L (136-145)
== END ==
PROVIDERS: PCP Internal Medicine; Referring Provider Physician Assistant; Visit Provider Physician Assistant
DX: I10 Essential (primary) hypertension (principal)
CPT/HCPCS: 36415; 80048

== ENCOUNTER 2021-06-14 13:17 | Outpatient (RCR) | payer BC, SELFPAY ==
[2021-04-05 13:23] VITALS: BMI 36.8
== END 2021-06-27 23:59 ==
LOC: NS 13:17
PROVIDERS: PCP Internal Medicine; Visit Provider Physician Assistant
DX: Z71.3 Dietary counseling and surveillance (principal); E66.9 Obesity, unspecified; Z68.32 Body mass index [BMI] 32.0-32.9, adult
CPT/HCPCS: 97802

== ENCOUNTER 2021-11-30 11:59 | Outpatient (CLI) | payer BC, SELFPAY ==
[2021-11-30 15:37] LABS: Anion Gap 5 (5-15); BUN 15 mg/dL (7-18); BUN/Creat Ratio 15.7 RATIO (10-20); Chloride 107 mmol/L (98-107); Creatinine, Serum 0.96 mg/dL (0.55-1.02); EST Glomerular Filtration Rate 71 mL/min (>60); Est Glom Filt Rate - Afr Amer 86 mL/min (>60); Glucose 87 mg/dL (74-106); Potassium 3.5 mmol/L (3.5-5.1); Sodium Level 139 mmol/L (136-145)
== END 2021-11-30 23:59 | disposition home or self-care (01) ==
LOC: BIMLAB 12:00
PROVIDERS: PCP Internal Medicine; Referring Provider Internal Medicine; Visit Provider Internal Medicine
DX: I10 Essential (primary) hypertension (principal)
CPT/HCPCS: 36415; 80048

== ENCOUNTER → 2022-04-18 | Outpatient (CLI) | payer BC, SELFPAY ==
--- NOTE | 2022-04-18 07:51 | US_ITS ---
EXAM: US PELVIS TRANSVAGINAL CLINICAL INDICATION: pelvic pain TECHNIQUE: Transvaginal pelvic ultrasound was performed with grayscale and color Doppler imaging. Transvaginal imaging was used for better evaluation of the endometrium and adnexa. This report was created using [employer] report [email or web address] technology. COMPARISON: None. FINDINGS: UTERUS/CERVIX: Uterus measures 10.1 x 4.6 x 6.3 cm. The endometrium measures 1.4 cm. Anteverted. There is no uterine mass. RIGHT OVARY: The right ovary measures 3.2 x 3.4 x 2.1 cm. Blood flow is present in the right ovary. LEFT OVARY: The left ovary measures 2.9 x 3.2 x 2.1 cm. Blood flow is present in the left ovary. FREE FLUID: None. BLADDER: Empty bladder which cannot be evaluated with this probe. US/Transvaginal Non- IMPRESSION: Mildly thickened endometrium which may be due to the patient''s menstrual cycle. No other abnormalities are identified. Electronically Signed: Toro Tobin MD at 2:29 EDT ,
--- NOTE | 2022-04-18 07:51 | US_ITS ---
EXAM: US PELVIS TRANSVAGINAL CLINICAL INDICATION: pelvic pain TECHNIQUE: Transvaginal pelvic ultrasound was performed with grayscale and color Doppler imaging. Transvaginal imaging was used for better evaluation of the endometrium and adnexa. This report was created using [employer] report [employer] technology. COMPARISON: None. FINDINGS: UTERUS/CERVIX: Uterus measures 10.1 x 4.6 x 6.3 cm. The endometrium measures 1.4 cm. Anteverted. There is no uterine mass. RIGHT OVARY: The right ovary measures 3.2 x 3.4 x 2.1 cm. Blood flow is present in the right ovary. LEFT OVARY: The left ovary measures 2.9 x 3.2 x 2.1 cm. Blood flow is present in the left ovary. FREE FLUID: None. BLADDER: Empty bladder which cannot be evaluated with this probe. US/Pelvic (Non ) IMPRESSION: Mildly thickened endometrium which may be due to the patient''s menstrual cycle. No other abnormalities are identified. Electronically Signed: Toro Tobin MD at 2:29 EDT ,
== END | disposition home or self-care (01) ==
PROVIDERS: PCP Internal Medicine; Referring Provider Obstetrics & Gynecology; Visit Provider Obstetrics & Gynecology
DX: R10.2 Pelvic and perineal pain (principal)
CPT/HCPCS: 76830; 76856; 93976

== ENCOUNTER → 2022-05-23 | Outpatient (CLI) | payer BC, SELFPAY ==
[2022-05-23 12:14] LABS: Absolute Lymphocyte Count 3.83 X10^3/uL (0.83-4.51); Basophil# 0.04 X10^3/uL; Basophil% 0.5 % (0-1); Eosinophil# 0.21 X10^3/uL; Eosinophils% 2.5 % (0-5); Hematocrit 43.9 % (37-47); Hemoglobin 14.6 g/dL (12.0-15.0); Lymphocyte # 3.83 X10^3/ul (0.83-4.51); Lymphocyte % 44.8 % (19-41); Mean Corp Hgb Conc 33.3 g/dL (32-36); Mean Corpuscular Hgb 29.3 pg (27.0-32.0); Mean Corpuscular Volume 88.2 fL (81-99); Mean Platelet Vol. 9.3 fl (6.2-12.0); Monocyte# 0.41 X10^3/uL; Monocyte% 4.8 % (0-10); NRBC Flagged by Analyzer 0 % (0-5); Neutrophil # 4.03 X10^3/uL (2.7-7.7); Platelet Count 220 K/mm3 (150-450); RBC Distribution Width SD 45.2 fl (35.1-43.9); Red Blood Count 4.98 M/mm3 (4.2-5.4); White Blood Count 8.6 K/mm3 (4.4-11.0)
[2022-05-23 15:54] LABS: ALB/GLOB Ratio 0.9 RATIO (0.9-2.4); AST(SGOT) 26 U/L (15-37); Alanine Aminotransfer ALT/SGPT 44 U/L (13-56); Albumin, Serum 3.5 g/dL (3.2-5.0); Alkaline Phosphatase 78 U/L (45-117); Anion Gap 9 (5-15); BUN 15 mg/dL (7-18); BUN/Creat Ratio 19.2 RATIO (10-20); Calcium,Total 8.9 mg/dL (8.5-10.1); Chloride 108 mmol/L (98-107); Cholesterol 160 mg/dL (200); Creatinine, Serum 0.78 mg/dL (0.55-1.02); EST Glomerular Filtration Rate 89 mL/min (>60); Est Glom Filt Rate - Afr Amer 108 mL/min (>60); Globulin 3.9 g/dL (2.2-4.2); Glucose 115 mg/dL (74-106); High Density Lipoprotein 33 mg/dL; Potassium 3.6 mmol/L (3.5-5.1); Protein, Total 7.4 g/dL (6.4-8.2); Sodium Level 140 mmol/L (136-145); T4 Free Direct 0.86 ng/dL (0.76-1.46); Thyroid Stim Hormone (TSH) 2.76 uIU/mL (0.358-3.74); Triglycerides 340 mg/dL; Very Low Density Lipoprotein 68 mg/dL (5-40)
== END | disposition home or self-care (01) ==
LOC: BIMLAB 11:08
PROVIDERS: PCP Internal Medicine; Visit Provider Internal Medicine
DX: I10 Essential (primary) hypertension (principal); F41.9 Anxiety disorder, unspecified; F32.9 Major depressive disorder, single episode, unspecified
CPT/HCPCS: 36415; 80053; 80061; 84439; 84443; 85025

== ENCOUNTER → 2022-07-20 | Outpatient (CLI) | payer BC, SELFPAY ==
[2022-07-20 11:24] LABS: Hematocrit 43.9 % (37-47); Hemoglobin 15.3 g/dL (12.0-15.0); Mean Corp Hgb Conc 34.9 g/dL (32-36); Mean Corpuscular Hgb 29.9 pg (27.0-32.0); Mean Corpuscular Volume 85.7 fL (81-99); Mean Platelet Vol. 8.5 fl (6.2-12.0); Platelet Count 241 K/mm3 (150-450); RBC Distribution Width CV 13.7 % (11.6-14.6); RBC Distribution Width SD 42.8 fl (35.1-43.9); Red Blood Count 5.12 M/mm3 (4.2-5.4); White Blood Count 8.9 K/mm3 (4.4-11.0)
[2022-07-20 11:39] LABS: Anion Gap 4 (5-15); BUN 15 mg/dL (7-18); BUN/Creat Ratio 17.9 RATIO (10-20); Calcium,Total 9.6 mg/dL (8.5-10.1); Chloride 106 mmol/L (98-107); Creatinine, Serum 0.84 mg/dL (0.55-1.02); EST Glomerular Filtration Rate 82 mL/min (>60); Est Glom Filt Rate - Afr Amer 99 mL/min (>60); Glucose 88 mg/dL (74-106); Magnesium 2.2 mg/dL (1.6-2.6); Potassium 3.7 mmol/L (3.5-5.1); Sodium Level 140 mmol/L (136-145)
== END | disposition home or self-care (01) ==
LOC: PAVLAB 10:59
PROVIDERS: Anesthesiology; PCP Internal Medicine; Referring Provider Obstetrics & Gynecology; Visit Provider Obstetrics & Gynecology
DX: Z01.818 Encounter for other preprocedural examination (principal)
CPT/HCPCS: 36415; 80048; 83735; 85027; 86850; 86900; 86901; 86920

== ENCOUNTER 2022-08-02 12:51 | Inpatient (IN) | payer BC, SELFPAY ==
--- NOTE | 2022-07-20 10:48 | PCM.HP.BLA ---
History and Physical Date of Admission: 08/02/22 [facility] [address] [place] [address] OFFICE VISIT Date of Service:? 07/20/22 ?H&P Intake Vital Signs ? 07/20/2210:07 07/20/2210:25 Height 5 ft 3 in 5 ft 3 in Weight: ? 218 lb 6 oz BMI ? 38.7 BP ? 134/88 H Intake Visit Reasons:?robotic hyst. 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 Required: No &PIs patient in pain?: No Allergies guaifenesin [From Mucinex] Allergy (Mild, Verified 07/20/22 10:26) chest painhydrocodone Allergy (Verified 07/20/22 10:26) RashSulfa (Sulfonamide Antibiotics) Allergy (Verified 07/20/22 10:26) Rash Medications duloxetine 30 mg capsule,delayed release 30 mg PO BID #180 caps 10/29/21 [Rx Confirmed 07/20/22] hydrochlorothiazide 25 mg tablet 25 mg PO DAILY #90 tabs 10/29/21 [Rx Confirmed 07/20/22] bupropion HCl 300 mg 24 hr tablet, extended release 300 mg PO QAM 3 months #90 tabs 06/27/22 [Rx Confirmed 07/20/22] sumatriptan succinate 25 mg tablet 25 mg PO PRN PRN MIGRAINES 07/19/22 [History Confirmed 07/20/22] Post menopausal: No Patient : No : No PFSH Medical History? Abnormal Pap smear of cervix Abnormal ultrasound of breast Acute sinusitis, unspecified Anxiety Blocked lacrimal duct Crohn's disease Depression Heartburn Hypertension Hypertension Iron deficiency anemia during Low iron Migraine headache Non-smoker Posterior right knee pain Right knee pain Thyromegaly Surgical History? H/O colonoscopy H/O colposcopy with cervical biopsy H/O lithotripsy H/O tooth extraction History of esophagogastroduodenoscopy (EGD) History of tonsillectomy S/P bunionectomy S/P cholecystectomy Family History? Grandmother Bladder cancer Diabetes CAD (coronary artery disease) LeukemiaGrandfather Heart disease CAD (coronary artery disease)Mother Depression with anxietyFather Hypothyroidism Hypertension Kidney stones Depression with anxiety Social History? Smoking Status:? Never smoker alcohol intake:? current details:? social substance use type:? does not use caffeine:? Yes what type of physical activity do you participate in:? walking frequency:? 5-6 times per week seatbelt use:? always do you feel safe at home:? Yes additional social history:? TJ- SAHM HPI robotic hyst. Details: FITZ NICHOLAS is a 37 year old who presents for pre-op Robotic hysterectomy.? She is a (vaginal deliveries) and has tried orilissa and ocps. She states that she had the expected hot flashes, headaches, and mood swings but also had horrible nightmares and stopped taking the medication. ultrasound showed a 10.1 cm uterus with increased vascularity suspicious for pelvic congestion and possible adenomyosis based also on her symptoms of pain with intercourse and severe pain with menses. She states that her first day of menses is a large gush of blood and it is heavy throughout. She has tried OCPs with minimal relief and is not interested in an ablation or IUD. Her had a vasectomy and she is 100% certain that she does not want another baby. 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 History ? ? ? 2 ? Elective abortions ? Hx Para ? ? ? 2 ? Spontaneous abortions ? Hx # Term Pregnancies ? Ectopic pregnancies ? Hx # Pregnancies ? Multiple births ? # of living children ? ? ? 2 Past Pregnancies Del. Date Name GA/Weeks Outcome Route Bth Weight Gen Labor Lgth Anesthesia Del Locatn Provider FOB 06/29/17 Daniel 40 live - full term 7lbs 9oz Male 8 hours epidural [facility] 06/18/19 Salo 39 live - full term 7.8lbs Male 12 epidural [facility] TJ ROS Const ROS Unobtainable: All systems reviewed & are unremarkable except as noted in H Resp Resp: Reports system reviewed and no additional complaints, except as documented; Denies cough GI GI: Reports as per HPI Psych Psych: Reports system reviewed and no additional complaints, except as documented Exam Const General: cooperative, healthy appearing, comfortable and no acute distress Resp Effort & Inspection: normal respiratory effort Skin General: no rashes or lesions noted Psych Appearance: grossly normal Speech and Movement: speech and movement normal Coding Level of Care Code Off vis,est,level 4 Diagnoses Crohns disease? K50.90 ? ? ? Gastrointestinal tract location: unspecified location ? ? ? Digestive disease complication type: without complication Anxiety and depression? F41.9; F32.9 Pelvic pain? R10.2 Class II obesity? E66.9 Endometriosis? N80.9 Menorrhagia? N92.0 Hypertension? I10 ? ? ? Hypertension type: primary hypertension Right knee pain? M25.561 Assessment and Plan Assessment and Plan (1) Crohns disease: ?Status:?Chronic ?Qualifiers: ?Gastrointestinal tract location:?unspecified location??Digestive disease complication type:?without complication? Qualified Code(s):?K50.90 - Crohn's disease, unspecified, without complications ?Comment: no meds.? remission (2) Anxiety and depression: ?Status:?Chronic (3) Pelvic pain: ?Status:?Chronic ?Plan: After discussing the patient's diagnosis and treatment plan options, patient wishes to proceed with surgical management.? I have discussed with the patient the risks, benefits, and alternatives of the procedure which include but are not limited to risks of anesthesia, bleeding, infection, possible damage to bowel, bladder, or surrounding vasculature which could lead to additional surgery to evaluate any complications.? Patient agrees to procedure and wishes to proceed.? ACOG/uptodate references given for additional information regarding procedure.? plan for total robotic hysterectomy, bilateral salpingectomy, cysto. plan for minimal cautery at vaginal cuff to reduce risk of fistula formation. pt wants to go home day of surgery if possible. (4) Class II obesity: ?Status:?Chronic (5) Endometriosis: ?Status:?Acute (6) Menorrhagia: ?Status:?Acute (7) Hypertension: ?Status:?Chronic ?Qualifiers: ?Hypertension type:?primary hypertension? Qualified Code(s):?I10 - Essential (primary) hypertension (8) Right knee pain: ?Status:?Acute 07/20/22 1046 <Electronically signed by Ivette Jon DO> Date 07/20/22 Ivette Jon DO
[2022-08-02] VITALS (15 sets, daily range): BP systolic 109–130; BP diastolic 58–90; PULSE 88–104; RESP 16–20; TEMP 36.6–37.1; O2SAT 94–100; BMI 38.2
[2022-08-02 06:26] LABS: Internal QC Validated? YES +Cl - CLEAR BKGD; Pregnancy, Urine Negative Negative
[2022-08-02] MEDS: dexAMETHasone 10 MG/ML Vial 8 MG IV (06:28)
[2022-08-02] MEDS: Celecoxib 200 MG Capsule 400 MG PO (06:28)
[2022-08-02] MEDS: Magnesium 1 GM over 15 mins IV (06:29)
[2022-08-02] MEDS: Acetaminophen 500 MG Tablet 1000 MG PO ×2 (06:29→17:34)
[2022-08-02] MEDS: Lactated Ringers 1,000 ML 40 ML IV (06:29)
[2022-08-02] MEDS: Phenazopyridine 95 MG Tablet 190 MG PO (06:29)
[2022-08-02] MEDS: Gabapentin 600 MG Tablet PO (06:29)
[2022-08-02 06:36] LABS: Bedside Glucose 70 mg/dL (74-106)
--- NOTE | 2022-08-02 07:40 | DCINST_ITS ---
Discharge Instructions Diet Discharge Diet: No restrictions Activity Discharge Activity: May Drive (when not taking narcotic medication x 24 hours ) May resume sexual activity in: 8 weeks Weight Bearing Status: Full weight bearing Lifting Restrictions: 15 pounds Dressing / Incision Call your doctor if your incision/area has: Continuous Slow Oozing, Sudden Increased Bleeding, Increased Pain/ Swelling, Increased Redness and Foul Smelling Discharge Call your doctor if you observe: Fever of 101 or Higher, Using more than 1 pad per hour, Shortness of breath, Chest pain and Uncontrolled pain Suture Line Care: Avoid Pulling/Pushing and Avoid Pinching/Bending Remove Dressing in: 1 week (if present) Cleanse incision/area with: Soap & Water and Keep Dressing Clean & Dry Follow Up Care Please Follow Up With: Ivette Jon DO When: Call to make an appointment with your doctor for a postop visit in 2 and 6 weeks Test Results: Test results from this visit will be discussed in further detail at your follow- up appointment, if applicable. Discharge Plan Admission Primary Reason for Your Visit: hysterectomy Attending Provider: Ivette Jon Primary Care Provider: Ondina Justin Discharge Orders/Prescriptions Prescriptions: New ibuprofen 800 mg tablet 800 mg PO Q8H PRN (Reason: pain) 7 Days Qty: 30 0RF oxycodone-acetaminophen [Percocet] 5-325 mg tablet 1 tab PO Q4H PRN (Reason: pain) 7 Days Qty: 30 0RF ondansetron 4 mg tablet,disintegrating 4 mg PO Q8H PRN (Reason: nausea and vomiting) Qty: 30 0RF Continued duloxetine 30 mg capsule,delayed release(DR/EC) 30 mg PO BID Qty: 180 3RF hydrochlorothiazide 25 mg tablet 25 mg PO DAILY Qty: 90 2RF bupropion HCl 300 mg tablet extended release 24 hr 300 mg PO QAM 90 Days Qty: 90 1RF sumatriptan succinate 25 mg tablet 25 mg PO PRN PRN (Reason: MIGRAINES) Referrals / Follow Up: Ondina Justin MD [Primary Care Provider] - Disposition Disposition (needs filled in before D/C Order can be placed): Home, Self Care
--- NOTE | 2022-08-02 08:00 | HYST_PTH ---
PATIENT: FITZ NICHOLAS LOC: [facility] U#:[id number] AGE/SX: 37/F ROOM: [facility] [place] RE08/02/[address]: Dr. Ivette Jon DO : 1985 BED: 1 DIS: 08/05/2022 SPEC #: [id number] RECD: 08/02/22 16:12 STATUS: VIPUL RENETTA #: [id number] MEGHAN: 08/02/22 08:[address]: Ivette Jon DEPT: SURGICAL PATHOLOGY RECD BY: Mindi Fink ENTERED: 08/03/22 07:36 SP TYPE: HYSTERECT OTHR DR: Dr. Ondina Justin MD Tissues: Uterus, NOS Procedures: Surgery Specimen Level V HEADER OPERATION: ERAS, total abdominal hysterectomy converted from laparoscopy PRE-OP DIAGNOSIS: Pelvic pain, endometriosis, menorrhagia TISSUE SUBMITTED: Uterus, cervix, bilateral fallopian tubes MICROSCOPIC DIAGNOSIS Uterus, hysterectomy: Cervix ? mild chronic inflammation and nabothian cyst. Endometrium ? proliferative endometrium. Myometrium ? adenomyosis. Right fallopian tube - No pathologic change. Left fallopian tube - No pathologic change. AM:ankur 08/04/2022 MICROSCOPIC DESCRIPTION Slides are reviewed. GROSS DESCRIPTION Received in fixative is one container labeled with the patient's name and designated uterus, cervix, bilateral fallopian tubes. The specimen consists of a hysterectomy specimen consisting of uterus with cervix and attached left fallopian tube and detached right fallopian tube. The uterus with cervix weighs 102 gm and measures 10 x 6.5 x 4 cm. The serosal surface is cruz, glistening. The ectocervical mucosa is unremarkable. The external os is oval in contour. The endocervical canal measures 3 cm in length and the endocervical mucosa is cruz, glistening and unremarkable. The triangular endometrial cavity measures 5 cm in length and 3 cm in width. The endometrium is cruz, glistening without any mass lesion and measures 0.1 cm in thickness. Sections of the uterine wall do not reveal any mass lesion and measures up to 2.5 cm in thickness. The right fallopian tube measures 6 cm in length and 0.5 cm in diameter. The fimbrial end is identified. Sections reveal unremarkable cut surfaces. The left fallopian tube is similar in appearance to right and measures 5.5 cm in length and 0.5 cm in diameter. Creative Developer sections are submitted in eight cassettes as follows: 1 - anterior cervix, 2 - posterior cervix, 3 & 4 - anterior uterine wall, 5 & 6 - posterior uterine wall, 7 - right fallopian tube, 8 - left fallopian tube. / SJ:ankur 08/03/2022 TC:5 CPT: 37457
[2022-08-02] MEDS: Cefazolin 2 GM in 0.9% Normal Saline 100 ML IV (08:05)
[2022-08-02] MEDS: Hetastarch 6% /Ns 30 GM/500 ML BAG IV (10:50)
--- NOTE | 2022-08-02 11:18 | PCM.OPRPT ---
Report of Operation Date of Procedure: 08/02/22 Pre-Operative Diagnosis: Trocar injury to the mesentery of the small bowel Post-Operative Diagnosis: 1. Trocar injury of the mesentery of small bowel 2. Sigmoid colon adhesion to the bladder Surgery/Procedure Performed:: 1. Laparotomy with repair of mesenteric blood vessel 2. Takedown of sigmoid adhesion with repair of the bladder wall Description of Procedure: Dr. Carrasco was operating on the patient for hysterectomy and I was called into the room for bleeding. It appeared the patient had a trocar injury to the base of the mesentery of the small bowel. I inspected the bowel robotically but upon manipulation of the peritoneum on the mesentery the bleeding started again and pressure was held. The decision was then made to perform a laparotomy with repair. The laparoscopic ports were removed and the robot was undocked and a midline incision was made inferior to the umbilicus. It was deepened the fascia was was elevated and incised. Use electrocautery the fascial incision was lengthened and then wound protector was placed. The area of injury was identified and the bowel was packed out of the way with wet laparotomy packs. The peritoneum overlying the area was incised sharply and the vessel was identified that was bleeding. It appeared to be venous. The venous injury was closed using a running 4-0 Prolene suture. There was good hemostasis with no bleeding. Next the mesenteric defect was closed using a running 3-0 Vicryl suture. The opposite side of the mesentery was inspected and appeared to not be a through and through injury. There was no injury to great vessels. The abdomen was irrigated and suctioned dry and inspected. There was no active bleeding. The bowel was run from the ligament of Treitz to the terminal ileum and there were no other small bowel injuries or areas of concern. The patient did have an adhesion from the sigmoid colon to the dome of the bladder. This adhesion was finger fractured until it was removed later. There may have been a small fistula between the sigmoid and the bladder. The sigmoid was inspected closely and the fatty area was able to be removed and there did not appear to be a defect in the colon but the area that the diverticulum originate from was imbricated using 3-0 silk suture. The bladder was filled and did not appear to be leaking and this appeared not to be a full-thickness defect. The dome of the bladder defect was approximately 5 mm in diameter. It was closed in 2 layers using 3-[address] Carrasco proceeded with the hysterectomy and I came back into the room for the cystoscopy and there appeared to be no defect on the inside of the bladder indicating this was likely not a fistula. I also scrubbed back in to inspect the small bowel. I inspected the area that was repaired and there appeared to be no hematoma in the area was soft and not bleeding. The small bowel that was associated with it appeared pink and warm and there was no venous congestion or signs of ischemia. Admit VTE Documentation VTE Mechan Device Prophylaxis: SCD's
[2022-08-02] MEDS: Bupivacaine 0.25% 30 ML Vial (12:20)
--- NOTE | 2022-08-02 12:58 | PCM.OP.BLANK ---
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 Procedure: Total abdominal hysterectomy converted from laparoscopy, bilateral salpingectomy, repair of mesenteric vascular injury, repair of bowel and bladder peritoneum fistula, cystoscopy Anesthesia: General endotracheal intubation Surgeon: Dr. Ivette Jon DO Laminator Hand: JEREMIAS Hines Shea Stare RNFA Laminator Hand: Dr. Carmella Curiel MD Consulting surgeons: Dr. Sarkis Knapp and Dr. Irineo Rose Estimated blood loss: 1300cc Urine output: 900cc Drains: None Implanted material: None Complications: None Findings: 10 size uterus, normal appearing ovaries and tubes. On exploration of the abdominal cavity the uterus, adnexa, bowel, and liver were found to be normal. There was adhesions of the epiploica and bowel to the bladder. Cystoscopy showed no evidence of leaking at approximately 250 cc of normal saline, positive ureteral orifices and jet flow are seen and no suture material was appreciated in the bladder. Specimens removed: Uterus and cervix, Bilateral tubes Reason for surgery: This is a 37-year-old G 2, P 2 who presented to my office with history of pelvic pain and very heavy periods. the planned procedure is for a robotic hysterectomy the risks benefits and alternatives were discussed with the patient the patient had a clear understanding of the procedure and a consent form was signed. Procedure: The patient was placed in the dorsal low lithotomy position and prepped and draped in the normal sterile fashion both abdominally and in the perineum. Her legs were placed in stirrups a Watts catheter was inserted into the urethra without difficulty. A weighted speculum was placed in the vagina and a single-tooth tenaculum was used to grasp the anterior lip of the cervix. A [employer] uterine manipulator was inserted through the cervix without complication. It was then tied into place at the 2 and 10:00 locations on the cervix. Gloves were changed and attention was turned towards the abdomen. Approximately 23 cm above the pubic symphysis in the midline, and after Marcaine injection, a [8] mm incision was made. An 8 mm trocar was inserted through the laparoscope, then inserted into the abdomen under direct visualization using the laparoscope. Good abdominal placement was noted and no complications were appreciated. An air seal device was utilized to create pneumoperitoneum. At 12 cm lateral to the midline on the left and right sides 8 mm accessory ports were placed. Next a left upper quadrant 8 mm curriculum assistant port site was placed. The patient was placed in steep Trendelenburg position. The robot was docked. There was noted to be more bleeding than usual around the omentum and in the upper quadrants of the abdomen. The bowel was carefully removed to the size and there was noted to be a small laceration in the mesentery of the small bowel. Dr. Knapp from general surgery was called to the operating room for second opinion on the laceration he then called in Dr. Rose who recommended a vertical skin incision for better visualization and repair of the mesentery. Midline incision was started from the umbilicus down to the pubic symphysis and a retractor was placed without difficulty. Moist sponges were used to pack the bowel away and both Dr. Rose and Dr. Knapp worked to repair the tear in the mesentery. Once this was performed the bowel was run and no further injury was noted to the bowel or omentum. The portion of the procedure will be dictated separately with detail. Patient was placed in Trendelenburg position and found to have bowel adhesion to the bladder. Dr. Knapp carefully dissected this off the bladder wall and there was noted to be a small fistulous hole in the epiploica and slightly into the bowel. This was repaired using a pursestring repair and will be dictated separately. The bladder was repaired in 2 layers using a 2-0 Vicryl . The decision was made to proceed with a hysterectomy . Dr. Curiel was then called to the operating room to be my facilities maintenance assistant. The hysterectomy was initiated first by taking down the round ligament on each side using the hand-held LigaSure device. The fallopian tubes were grasped using a Renetta clamp and the underlying mesosalpinx was cauterized and cut to the level of the cornua. The broad ligament was then and taken down using the hand-held LigaSure device device. Next the bladder flap was taken down without complication. This was done using monopolar cautery to the level of the cervical vaginal junction. After the bladder flap was created, uterine vessels were then isolated and cauterized using straight Deepa clamps and 0 Vicryl suture. At this point the uterine vessels were taken down further starting from the ascending branch, dissecting along the edges of the cervix to the level of the cervical vaginal junction with hemostasis appreciated. The cervical vaginal junction was then using the Bovie cautery in a circumferential pattern across the superior aspect of the cervix over the uterine manipulator that was already in place. The specimen was delivered through the vagina and sent to pathology. The remaining vaginal cuff was then closed using 0 Vicryl suture suture. This was performed in a interrupted technique. Excellent hemostasis was obtained and good closure was noted. Irrigation was then performed. All operative sites were noted to be hemostatic. Dr. Knapp then returned to the operating room to rerun the bowel and all looked hemostatic and perfusing adequately. A cystoscopy was performed with a 70 degree cystoscope through the urethra into the bladder without complication. The bladder was instilled with approximately 250 cc of normal saline. Intraoperative images were made. Ureteral orifices and jets were identified. No suture material was appreciated in the bladder, which meant that the fistula did not grow all the way through the bladder. The bladder was then drained and cystoscope was removed. Vertical skin incision was closed first by closing the peritoneum using a 3-0 Vicryl suture. Next the fascia was closed using a PDS strata fix suture. The subcutaneous tissue was closed in 2 layers of 3-0 Vicryl. And the skin was closed with a 4-0 Monocryl subcuticular stitch. the patient tolerated this procedure well with stable vital signs throughout the procedure. She is now being brought to the recovery room in stable condition. Multi Select Codes Urinary/Genital Urinary/Genital CPT Codes: 26845 Cystoscopy and 42184 TVH+BS/O <250gr uterus
[2022-08-02] MEDS: Ondansetron 4 MG/2 ML Vial IV (14:04)
[2022-08-02 14:06] LABS: Hematocrit 31.4 % (37-47); Hemoglobin 10.8 g/dL (12.0-15.0); Mean Corp Hgb Conc 34.4 g/dL (32-36); Mean Corpuscular Hgb 29.8 pg (27.0-32.0); Mean Corpuscular Volume 86.7 fL (81-99); Mean Platelet Vol. 8.9 fl (6.2-12.0); Platelet Count 205 K/mm3 (150-450); RBC Distribution Width CV 13.6 % (11.6-14.6); RBC Distribution Width SD 42.5 fl (35.1-43.9); Red Blood Count 3.62 M/mm3 (4.2-5.4); White Blood Count 14.1 K/mm3 (4.4-11.0)
[2022-08-02] MEDS: Ketorolac 30 MG/ML Syringe IV (17:22)
[2022-08-02] MEDS: Lactated Ringers 1,000 ML 125 ML IV (17:35)
[2022-08-02] MEDS: 0.9% Saline Lock 10 ML Syringe IV (18:19)
[2022-08-02] MEDS: HYDROmorphone 0.5 MG/0.5 ML SYRINGE IV (18:19)
[2022-08-02] MEDS: DULoxetine Hcl 30 MG Capsule PO (20:31)
[2022-08-02] MEDS: Docusate Sodium 100 MG Capsule PO (20:31)
[2022-08-03] VITALS (8 sets, daily range): BP systolic 91–119; BP diastolic 56–69; PULSE 87–104; RESP 18–20; TEMP 36.6–37.2; O2SAT 93–98
[2022-08-03] MEDS: Ketorolac 30 MG/ML Syringe IV ×5 (00:41→23:31)
[2022-08-03] MEDS: Acetaminophen 500 MG Tablet 1000 MG PO ×4 (00:41→17:31)
[2022-08-03] MEDS: Lactated Ringers 1,000 ML 125 ML IV ×4 (00:51→21:52)
[2022-08-03] MEDS: 0.9% Saline Lock 10 ML Syringe IV ×4 (05:59→18:28)
[2022-08-03 06:30] LABS: Hemoglobin 10.3 g/dL (12.0-15.0); Mean Corp Hgb Conc 34.3 g/dL (32-36); Mean Corpuscular Volume 87.5 fL (81-99); Platelet Count 195 K/mm3 (150-450); RBC Distribution Width CV 13.8 % (11.6-14.6); RBC Distribution Width SD 44.1 fl (35.1-43.9); Red Blood Count 3.43 M/mm3 (4.2-5.4)
--- NOTE | 2022-08-03 08:06 | PCM.PN.OB ---
Subjective Subjective patient is laying in bed, she denies dizziness, shortness of breath or severe abdominal pain. She feels sore and has not passed gas yet. She plans to get up and move today. Objective Data Objective Data Vital Signs: Vital Signs Temp Pulse Resp BP Pulse Ox O2 Del Method O2 Flow Rate 98.4 F 104 H 18 117/69 96 Room Air 2 08/03/22 05:57 08/03/22 05:57 08/03/22 05:57 08/03/22 05:57 08/03/22 05:57 08/03/22 05:57 08/02/22 19:20 FiO2 95 08/02/22 17:14 Oxygen Flow Rate (L/min) 2 Oxygen Delivery Method Room Air Weight: 216 lb Body Mass Index (BMI) 38.2 Intake & Output: Intake and Output for Last 24 Hours 08/01/22 08/02/22 08/03/22 23:59 23:59 23:59 Intake Total 4570.33 / 4570.33 908.33 / 908.33 Output Total 1605 / 1605 875 / 875 Balance 2965.33 / 2965.33 33.33 / 33.33 Lab / Micro Data Result Diagrams: 08/03/22 06:15 Labs: Laboratory Results - last 24 hr 08/02/22 14:01: WBC 14.1 H, RBC 3.62 L, Hgb 10.8 L, Hct 31.4 L, MCV 86.7, MCH 29.8, MCHC 34.4, RDW Std Deviation 42.5, RDW Coeff of Yuni 13.6, Plt Count 205, MPV 8.9 08/03/22 06:15: WBC 13.0 H, RBC 3.43 L, Hgb 10.3 L, Hct 30.0 L, MCV 87.5, MCH 30.0, MCHC 34.3, RDW Std Deviation 44.1 H, RDW Coeff of Yuni 13.8, Plt Count 195, MPV 9.0 ROS Constitutional Constitutional: Reports systems reviewed and no addt'l complaints, except as documented Cardiovascular Cardiovascular: Denies chest pain, dizziness, dyspnea or irregular heart rhythm Respiratory/Chest Respiratory/Chest: Denies cough, pain on inspiration or shortness of breath at rest Gastrointestinal Gastrointestinal: Denies nausea or vomiting Musculoskeletal Musculoskeletal: Denies muscle cramps, muscle spasms or muscle weakness Neurologic Neurologic: Denies confusion, dizziness, headache(s) or lack of coordination Psychiatric Psychiatric: Denies anxiety, behavioral changes or depression Physical Exam HEENT normocephalic Resp normal respiratory effort and normal air movement GI soft to palpation, non-tender and non-distended Rectal Exam: other Other Details: Incision is clean, dry, and intact no CVA tenderness Extremity normal to inspection General Extremity: edema bilateral (trace ) Assessment & Plan (1) Status post hysterectomy: PLAN: Plan patient is s/p abdominal hysterectomy that was converted from laparoscopy due to mesenteric artery injury. POD 1 1. routine ERAS protocol postop care- increase ambulation, lovenox and scds for dvt prophylaxis 2. maintain Watts for another day due to stitches on back wall due to fistula formation that was noted during surgery. (not through and through the bladde wall , only posterior) 3. simethicone today, maintain NPO with sips and chips only until passes gas.
[2022-08-03] MEDS: DULoxetine Hcl 30 MG Capsule PO ×2 (09:02→20:52)
[2022-08-03] MEDS: Docusate Sodium 100 MG Capsule PO ×2 (09:02→20:52)
[2022-08-03] MEDS: Enoxaparin 40 MG/0.4 ML Syringe SC (09:03)
[2022-08-03] MEDS: buPROPion (XL) 300 MG TABLET.XL PO (09:03)
[2022-08-03] MEDS: HYDROmorphone 0.5 MG/0.5 ML SYRINGE IV ×2 (09:13→18:29)
[2022-08-03] MEDS: FLU VACC QS2022-23(6MOS UP)/PF 60 MCG/0.5 ML SYRINGE IM (10:11)
--- NOTE | 2022-08-03 10:39 | PCM.PN.SRG ---
Subjective Subjective Patient notes no nausea or vomiting overnight. She does feel little bit bloated and she is not passing flatus yet but her pain is well controlled. Objective Data Objective Data Vital Signs: Vital Signs Temp Pulse Resp BP Pulse Ox O2 Del Method O2 Flow Rate 98.2 F 87 20 H 110/59 L 97 Room Air 2 08/03/22 09:23 08/03/22 09:23 08/03/22 09:23 08/03/22 09:23 08/03/22 09:23 08/03/22 09:23 08/02/22 19:20 FiO2 95 08/02/22 17:14 Oxygen Flow Rate (L/min) 2 Oxygen Delivery Method Room Air Weight: 216 lb Body Mass Index (BMI) 38.2 Intake & Output: Intake and Output for Last 24 Hours 08/01/22 08/02/22 08/03/22 23:59 23:59 23:59 Intake Total 4570.33 / 4570.33 1908.33 / 1908.33 Output Total 1605 / 1605 875 / 875 Balance 2965.33 / 2965.33 1033.33 / 1033.33 Lab / Micro Data Result Diagrams: 08/03/22 06:15 Labs: Laboratory Results - last 24 hr 08/02/22 14:01: WBC 14.1 H, RBC 3.62 L, Hgb 10.8 L, Hct 31.4 L, MCV 86.7, MCH 29.8, MCHC 34.4, RDW Std Deviation 42.5, RDW Coeff of Yuni 13.6, Plt Count 205, MPV 8.9 08/03/22 06:15: WBC 13.0 H, RBC 3.43 L, Hgb 10.3 L, Hct 30.0 L, MCV 87.5, MCH 30.0, MCHC 34.3, RDW Std Deviation 44.1 H, RDW Coeff of Yuni 13.8, Plt Count 195, MPV 9.0 Physical Exam Const oriented x3 Resp normal respiratory effort GI soft to palpation Assessment & Plan Assessment/Plan (1) Status post hysterectomy: PLAN: The patient seems to be doing well this morning. Her hemoglobin is stable. Her abdomen is soft and slightly distended. She is not passing flatus yet. I would hold off on a diet until she starts to pass flatus. I would also recommend continue the Watts for 24 more hours to decompress the bladder as there were sutures placed on the dome of the bladder. Nash Knapp MD Pager: [facility] [address] [place] [address] [address] [place] [address] Office:
--- NOTE | 2022-08-03 10:45 | CASEMGMT ---
RN CM Face to Face with patient for initial transition planning/care coordination assessment. RN CM introduced self and role at [facility]. Patient lying in bed, alert and oriented, at bedside. Patient willing to participate in assessment and is able to answer all questions appropriately. Care providers, pharmacy, and demographics verified. Patient wishes to discharge home, denies need for home health at this time. Patient states she has no further needs or concerns at this time. CM to follow for discharge planning needs that may arise. PCP: [facility] Specialists: LEVAR Jon Preferred Pharmacy: Mehul Monteiro; [facility] retail at discharge. Insurance: [employer] Prescription Benefit: yes Living Will/HPOA: none LNOK: Living Arrangements: Patient lives with in a 2 story home. Patient states she is independent and able to ambulate stairs. Transportation: self, DME/HHC: Patient denies DME in the home. Patient denies previous HHC. Disposition Plan: Patient to discharge home with family support and follow-up plans in place. Lisa WRIGHT, RN, CM
--- NOTE | 2022-08-03 13:47 | NURSING ---
Walked in [place], all around the unit, now she is sitting in chair. Call light in reach. at bedside.
[2022-08-03] MEDS: Lactated Ringers 500 ML 999 ML IV (21:20)
[2022-08-04] MEDS: Acetaminophen 500 MG Tablet 1000 MG PO ×4 (00:46→18:07)
[2022-08-04 03:45] VITALS: BP 104/66; PULSE 93; RESP 18; TEMP 37.1; O2SAT 96
[2022-08-04] MEDS: Lactated Ringers 1,000 ML 125 ML IV (05:01)
[2022-08-04] MEDS: Ketorolac 30 MG/ML Syringe IV ×4 (05:01→23:05)
[2022-08-04] MEDS: Ondansetron ODT 4 MG Tablet PO (05:01)
[2022-08-04] MEDS: 0.9% Saline Lock 10 ML Syringe IV ×2 (05:01→19:57)
[2022-08-04 05:31] LABS: Bedside Glucose 95 mg/dL (74-106)
[2022-08-04 06:54] LABS: Absolute Lymphocyte Count 3.44 X10^3/uL (0.83-4.51); Absolute Neutrophil Count 4.9 X10^3/uL (2.0-7.7); Basophil# 0.03 X10^3/uL; Basophil% 0.3 % (0-1); Eosinophil# 0.14 X10^3/uL; Eosinophils% 1.6 % (0-5); Hematocrit 27.9 % (37-47); Lymphocyte # 3.44 X10^3/ul (0.83-4.51); Lymphocyte % 38.4 % (19-41); Mean Corp Hgb Conc 32.3 g/dL (32-36); Mean Corpuscular Hgb 29.4 pg (27.0-32.0); Mean Corpuscular Volume 91.2 fL (81-99); Mean Platelet Vol. 9.4 fl (6.2-12.0); Monocyte# 0.41 X10^3/uL; Monocyte% 4.6 % (0-10); NRBC Flagged by Analyzer 0 % (0-5); Neutrophil # 4.89 X10^3/uL (2.7-7.7); Neutrophil % 54.7 % (47-70); Platelet Count 153 K/mm3 (150-450); RBC Distribution Width CV 14.3 % (11.6-14.6); RBC Distribution Width SD 47.6 fl (35.1-43.9); Red Blood Count 3.06 M/mm3 (4.2-5.4)
[2022-08-04 07:20] LABS: ALB/GLOB Ratio 0.9 RATIO (0.9-2.4); AST(SGOT) 21 U/L (15-37); Alanine Aminotransfer ALT/SGPT 30 U/L (13-56); Albumin, Serum 2.3 g/dL (3.2-5.0); Alkaline Phosphatase 47 U/L (45-117); Anion Gap 6 (5-15); BUN 10 mg/dL (7-18); BUN/Creat Ratio 20.7 RATIO (10-20); Calcium,Total 7.5 mg/dL (8.5-10.1); Chloride 108 mmol/L (98-107); Creatinine, Serum 0.48 mg/dL (0.55-1.02); EST Glomerular Filtration Rate 155 mL/min (>60); Est Glom Filt Rate - Afr Amer 188 mL/min (>60); Estimated Creatinine Clearance 135.32 ml/min; Globulin 2.5 g/dL (2.2-4.2); Glucose 90 mg/dL (74-106); Potassium 3.3 mmol/L (3.5-5.1); Protein, Total 4.8 g/dL (6.4-8.2); Sodium Level 140 mmol/L (136-145)
[2022-08-04 07:24] VITALS: O2SAT 93
--- NOTE | 2022-08-04 07:51 | PCM.PN.OB ---
Subjective Subjective pt is laying on her right side sleeping when i entered the room and wakes easily. She is smiling and states that she is feeling a little better but last night was rough pain was a little worse but she states is better now. She states that she has lots of grumbling in her abdomen but no flatus yet Objective Data Objective Data Vital Signs: Vital Signs Temp Pulse Resp BP Pulse Ox O2 Del Method O2 Flow Rate 98.8 F 93 18 104/66 93 Room Air 2 08/04/22 03:45 08/04/22 03:45 08/04/22 03:45 08/04/22 03:45 08/04/22 07:24 08/04/22 07:24 08/02/22 19:20 FiO2 95 08/02/22 17:14 Oxygen Flow Rate (L/min) 2 Oxygen Delivery Method Room Air Weight: 216 lb Body Mass Index (BMI) 38.2 Intake & Output: Intake and Output for Last 24 Hours 08/02/22 08/03/22 08/04/22 23:59 23:59 23:59 Intake Total 4570.33 / 4570.33 4205.41 / 4205.41 893.75 / 893.75 Output Total 1605 / 1605 1950 / 1950 250 / 250 Balance 2965.33 / 2965.33 2255.41 / 2255.41 643.75 / 643.75 Lab / Micro Data Result Diagrams: 08/04/22 05:37 08/04/22 05:37 Labs: Laboratory Results - last 24 hr 08/04/22 05:07: POC Glucose 95 08/04/22 05:37: WBC 9.0, RBC 3.06 L, Hgb 9.0 L, Hct 27.9 L, MCV 91.2, MCH 29.4, MCHC 32.3 D, RDW Std Deviation 47.6 H, RDW Coeff of Yuni 14.3, Plt Count 153, MPV 9.4, Immature Gran % (Auto) 0.400, Neut % (Auto) 54.7, Lymph % (Auto) 38.4, [place] % (Auto) 4.6, Eos % (Auto) 1.6, Baso % (Auto) 0.3, Absolute Neuts (auto) 4.9, Absolute Lymphs (auto) 3.44, Nucleated RBC % 0 08/04/22 05:37: Sodium 140, Potassium 3.3 L, Chloride 108 H, Carbon Dioxide 26.0, Anion Gap 6, BUN 10, Creatinine 0.48 L, Estim Creat Clear Calc 135.32, Est GFR (MDRD) Af Amer 188, Est GFR (MDRD) Non-Af 155, BUN/Creatinine Ratio 20.7 H, Glucose 90, Calcium 7.5 L, Total Bilirubin 0.30, AST 21, ALT 30, Alkaline Phosphatase 47, Total Protein 4.8 L, Albumin 2.3 L, Globulin 2.5, Albumin/Globulin Ratio 0.9 ROS Constitutional Constitutional: Reports systems reviewed and no addt'l complaints, except as documented Cardiovascular Cardiovascular: Denies chest pain, dizziness, dyspnea or irregular heart rhythm Respiratory/Chest Respiratory/Chest: Denies cough, pain on inspiration or shortness of breath at rest Gastrointestinal Gastrointestinal: Denies nausea or vomiting Musculoskeletal Musculoskeletal: Denies muscle cramps, muscle spasms or muscle weakness Neurologic Neurologic: Denies confusion, dizziness, headache(s) or lack of coordination Psychiatric Psychiatric: Denies anxiety, behavioral changes or depression Physical Exam HEENT normocephalic Resp normal respiratory effort and normal air movement GI soft to palpation, non-tender and non-distended Rectal Exam: other Other Details: Incision is clean, dry, and intact no CVA tenderness Extremity normal to inspection General Extremity: edema bilateral (trace ) Assessment & Plan (1) Status post hysterectomy: PLAN: Plan patient is s/p abdominal hysterectomy that was converted from laparoscopy due to mesenteric artery injury. POD 2 1. routine ERAS protocol postop care- increase ambulation, lovenox and scds for dvt prophylaxis 2. maintain Watts in place due to stitches on back wall due to fistula formation that was noted during surgery. (not through and through the bladder wall , only posterior) will wait on general surgery recommendations for removal. 3. continue simethicone today, maintain NPO with sips and chips only until passes gas.
[2022-08-04 09:00] VITALS: RESP 18
[2022-08-04] MEDS: buPROPion (XL) 300 MG TABLET.XL PO (09:25)
[2022-08-04] MEDS: Docusate Sodium 100 MG Capsule PO (09:25)
[2022-08-04] MEDS: DULoxetine Hcl 30 MG Capsule PO ×2 (09:25→23:05)
[2022-08-04] MEDS: Enoxaparin 40 MG/0.4 ML Syringe SC (09:25)
[2022-08-04 09:27] VITALS: BP 110/67; PULSE 88; RESP 18; TEMP 36.8; O2SAT 96
[2022-08-04 16:15] VITALS: BP 115/78; PULSE 78; RESP 18; TEMP 37.2; O2SAT 98
[2022-08-04 19:48] VITALS: BP 120/72; PULSE 103; RESP 16; TEMP 37.1; O2SAT 100
[2022-08-04] MEDS: HYDROmorphone 0.5 MG/0.5 ML SYRINGE IV (19:57)
[2022-08-05] MEDS: Acetaminophen 500 MG Tablet 1000 MG PO ×2 (00:59→06:28)
[2022-08-05 02:00] VITALS: BP 135/89; PULSE 97; RESP 16; TEMP 36.9; O2SAT 95
[2022-08-05] MEDS: Ondansetron ODT 4 MG Tablet PO (06:28)
[2022-08-05] MEDS: Ketorolac 30 MG/ML Syringe IV (06:28)
[2022-08-05 07:32] VITALS: O2SAT 95
[2022-08-05 08:00] VITALS: BP 112/88; PULSE 89; RESP 18; TEMP 37.1; O2SAT 97
--- NOTE | 2022-08-05 08:37 | PCM.DC.SUM ---
Providers Date of Admission: 08/02/22 Date of Discharge: 08/05/22 Primary Care Physician: MD Dr. Nash Gaines MD Reason For Visit: total robotic hyster, bs, cysto Diagnosis Discharge Diagnosis (1) Status post hysterectomy: Status: Acute Code(s): Z90.710 - Acquired absence of both cervix and uterus Plan patient is s/p abdominal hysterectomy that was converted from laparoscopy due to mesenteric artery injury. POD 2 1. routine ERAS protocol postop care- increase ambulation, lovenox and scds for dvt prophylaxis 2. maintain Saenz in place due to stitches on back wall due to fistula formation that was noted during surgery. (not through and through the bladder wall , only posterior) will wait on general surgery recommendations for removal. 3. continue simethicone today, maintain NPO with sips and chips only until passes gas. Medications at Discharge Home Medications duloxetine 30 mg capsule,delayed release 30 mg PO BID #180 caps 10/29/21 hydrochlorothiazide 25 mg tablet 25 mg PO DAILY #90 tabs 10/29/21 bupropion HCl 300 mg 24 hr tablet, extended release 300 mg PO QAM 3 months #90 tabs 06/27/22 sumatriptan succinate 25 mg tablet 25 mg PO PRN PRN MIGRAINES 07/19/22 ibuprofen 800 mg tablet 800 mg PO Q8H PRN pain 7 days #30 tabs 08/02/22 ondansetron 4 mg disintegrating tablet 4 mg PO Q8H PRN nausea and vomiting #30 tabs 08/02/22 oxycodone-acetaminophen 5 mg-325 mg tablet (Percocet) 1 tab PO Q4H PRN pain 7 days #30 tabs 08/02/22 Hospital Course Operations hysterectomy Summary of Care Provided Minutes Spent on Discharge: 15 Hospital Course: Paola was admitted on 08/02/22 for an elective hysterectomy due to pelvic pain and heavy menses. The plan was for a robotic hysterectomy due to suspected adhesions secondary to crohn's disease and ultrasound evidence of enlarged uterus. During her procedure there was an incidental mesenteric vessel injury. General surgery was consulted and she was opened and the damaged vessel was repaired. There was also noted bowel adhesions to the bladder that was repaired by general surgery. She was admitted to [facility] for 3 nights for bowel observation. on pod#1 she was made NPO and saenz was kept in place. Her pain was well controlled with IV and PO sips and chips. On POD#2 she was passing gas and diet was advanced. on POD #3 all vitals were stable and she was tolerating her diet and ambulation. She was then discharged to home in stable condition Physical Exam Const alert HEENT normocephalic Resp normal respiratory effort and normal air movement GI soft to palpation, non-tender and non-distended Rectal Exam: other Other Details: Incision is clean, dry, and intact no CVA tenderness Extremity normal to inspection General Extremity: edema bilateral (trace ) Weight / BMI Weight Weight: 216 lb Body Mass Index (BMI) 38.2 ABG / Lab / Microbiology Data Result Diagrams: /08/22 05:37 12/08/22 05:37 D/C Instructions Discharge Diet: No restrictions May resume sexual activity in: 8 weeks Weight Bearing Status: Full weight bearing Call your doctor if your incision/area has: Continuous Slow Oozing, Sudden Increased Bleeding, Increased Pain/ Swelling, Increased Redness and Foul Smelling Discharge Call your doctor if you observe: Fever of 101 or Higher, Using more than 1 pad per hour, Shortness of breath, Chest pain and Uncontrolled pain Suture Line Care: Avoid Pulling/Pushing and Avoid Pinching/Bending Cleanse incision/area with: Soap & Water and Keep Dressing Clean & Dry Please Follow Up With: Ivette Jon DO When: Call to make an appointment with your doctor for a postop visit in 2 and 6 weeks Meaningful Use Info Meaningful Use Diagnoses (Choose all that apply): None applicable Discharge Plan Admission Admit Date/Time: // 12:51 Primary Reason for Your Visit: hysterectomy Attending Provider: Ivette Jon Primary Care Provider: Ondina Justin Discharge Orders/Prescriptions Prescriptions: New ibuprofen 800 mg tablet 800 mg PO Q8H PRN (Reason: pain) 7 Days Qty: 30 0RF oxycodone-acetaminophen [Percocet] 5-325 mg tablet 1 tab PO Q4H PRN (Reason: pain) 7 Days Qty: 30 0RF ondansetron 4 mg tablet,disintegrating 4 mg PO Q8H PRN (Reason: nausea and vomiting) Qty: 30 0RF Continued duloxetine 30 mg capsule,delayed release(/EC) 30 mg PO BID Qty: 180 3RF hydrochlorothiazide 25 mg tablet 25 mg PO DAILY Qty: 90 2RF bupropion HCl 300 mg tablet extended release 24 hr 300 mg PO QAM 90 Days Qty: 90 1RF sumatriptan succinate 25 mg tablet 25 mg PO PRN PRN (Reason: MIGRAINES) Referrals / Follow Up: Ondina Justin MD [Primary Care Provider] - Disposition Disposition (needs filled in before D/C Order can be placed): Home, Self Care
[2022-08-05] MEDS: DULoxetine Hcl 30 MG Capsule PO (11:14)
[2022-08-05] MEDS: hydroCHLOROthiazide 25 MG Tablet PO (11:14)
[2022-08-05] MEDS: buPROPion (XL) 300 MG TABLET.XL PO (11:14)
[2022-08-05] MEDS: Docusate Sodium 100 MG Capsule PO (11:14)
== END 2022-08-05 12:56 | disposition home or self-care (01) | DRG 742 ==
LOC: SDC 13:10 → MS3 13:10
PROVIDERS: Admitting Provider Obstetrics & Gynecology; PCP Internal Medicine; Visit Provider Obstetrics & Gynecology
PROC: 0UT90ZZ Resection of Uterus, Open Approach (ICD-10-PCS; principal; 2022-08-02 07:40)
DX: N92.0 Excessive and frequent menstruation with regular cycle (principal); K50.90 Crohn's disease, unspecified, without complications; I97.52 Accidental puncture and laceration of a circulatory system organ or structure during other procedure; I10 Essential (primary) hypertension; M25.561 Pain in right knee; F41.9 Anxiety disorder, unspecified; N80.9 Endometriosis, unspecified; N32.89 Other specified disorders of bladder; E66.9 Obesity, unspecified; F32.A Depression, unspecified; Z23 Encounter for immunization; Z79.899 Other long term (current) drug therapy; Z53.31 Laparoscopic surgical procedure converted to open procedure; K66.0 Peritoneal adhesions (postprocedural) (postinfection); Y92.234 Operating room of hospital as the place of occurrence of the external cause
CPT/HCPCS: 36415; 80053; 81025; 82962; 85025; 85027; 88307; 99251; J7120; 90686; A4216; G0463; J2405; J3475

== ENCOUNTER → 2022-09-14 | Outpatient (CLI) | payer SELFPAY | END | disposition home or self-care (01) | PROVIDERS: PCP Internal Medicine; Visit Provider Obstetrics & Gynecology | DX: R30.0 Dysuria (principal) | CPT/HCPCS: 87086; 87088 ==

== ENCOUNTER → 2022-12-14 | Outpatient (CLI) | payer BC, SELFPAY ==
[2022-12-14 12:33] LABS: Erythrocyte Sedimentation Rate 15 mm/hr (0-30)
[2022-12-14 12:48] LABS: Absolute Lymphocyte Count 3.09 X10^3/uL (0.83-4.51); Absolute Neutrophil Count 5.9 X10^3/uL (2.0-7.7); Basophil# 0.04 X10^3/uL; Basophil% 0.4 % (0-1); Eosinophil# 0.25 X10^3/uL; Eosinophils% 2.6 % (0-5); Hematocrit 45.6 % (37-47); Hemoglobin 14.6 g/dL (12.0-15.0); Lymphocyte # 3.09 X10^3/ul (0.83-4.51); Lymphocyte % 31.8 % (19-41); Mean Corpuscular Hgb 26.2 pg (27.0-32.0); Mean Corpuscular Volume 81.9 fL (81-99); Mean Platelet Vol. 8.7 fl (6.2-12.0); Monocyte# 0.45 X10^3/uL; Monocyte% 4.6 % (0-10); NRBC Flagged by Analyzer 0 % (0-5); Neutrophil # 5.85 X10^3/uL (2.7-7.7); Neutrophil % 60.3 % (47-70); Platelet Count 268 K/mm3 (150-450); RBC Distribution Width CV 16.6 % (11.6-14.6); RBC Distribution Width SD 48.5 fl (35.1-43.9); Red Blood Count 5.57 M/mm3 (4.2-5.4); White Blood Count 9.7 K/mm3 (4.4-11.0)
[2022-12-14 13:10] LABS: ALB/GLOB Ratio 0.9 RATIO (0.9-2.4); AST(SGOT) 21 U/L (15-37); Alanine Aminotransfer ALT/SGPT 30 U/L (13-56); Albumin, Serum 3.8 g/dL (3.2-5.0); Alkaline Phosphatase 108 U/L (45-117); Anion Gap 6 (5-15); BUN 14 mg/dL (7-18); BUN/Creat Ratio 15.8 RATIO (10-20); CRP 9.95 mg/L (0.0-3.0); Calcium,Total 9.3 mg/dL (8.5-10.1); Chloride 101 mmol/L (98-107); Creatinine, Serum 0.89 mg/dL (0.55-1.02); EST Glomerular Filtration Rate 77 mL/min (>60); Est Glom Filt Rate - Afr Amer 93 mL/min (>60); Globulin 4.1 g/dL (2.2-4.2); Glucose 93 mg/dL (74-106); LDH 239 U/L (84-246); Potassium 3.6 mmol/L (3.5-5.1); Protein, Total 7.9 g/dL (6.4-8.2); Sodium Level 133 mmol/L (136-145)
[2022-12-14 13:45] LABS: Rubella IgG Reactive (Nonreactive)
[2022-12-15 13:07] LABS: Anti-Centromere B Ab <0.2 AI (0.0-0.9); Anti-Chromatin <0.2 AI (0.0-0.9); Anti-Jo <0.2 AI (0.0-0.9); Anti-Scleroderma-70 AB <0.2 AI (0.0-0.9); Anti-dsDNA Ab 4 IU/mL (0-9); RNP Ab <0.2 AI (0.0-0.9); SJOGREN'S Anti-SS-A test < 0.2 AI (0.0-0.9); SJOGREN'S Anti-SS-B test < 0.2 AI (0.0-0.9); Smith Ab <0.2 AI (0.0-0.9)
[2022-12-15 16:09] LABS: Endomysial Antibody IgA Negative (Negative); Immunoglobulin A 237 mg/dL (87-352); t-Transglutaminase IgA <2 U/mL (0-3)
[2022-12-17 07:08] LABS: Albumin 3.8 g/dL (2.9-4.4); Alpha-1-Globulins 0.2 g/dL (0.0-0.4); Alpha-2-Globulins 0.8 g/dL (0.4-1.0); B. pertussis IgG 3.55 index (0.00-0.94); Cytoplasmic Ab (C-ANCA) <1:20 titer (Neg:<1:20); Gamma Globulin 1.4 g/dL (0.4-1.8); HEPATITIS B SURFACE AG Negative (Negative); Hep C Antibodies Non Reactive (Non Reactive); Hepatitis A IgM Antibody Negative (Negative); Hepatitis B Core AB IgM Negative (Negative); Immunoglobulin A 252 mg/dL (87-352); Immunoglobulin E 9 IU/mL (6-495); Immunoglobulin G 1249 mg/dL (586-1602); Immunoglobulin M 319 mg/dL (26-217); Mumps Antibody, IgM < 0.80 AU (0.00-0.79); PROEL- TOTAL PROTEIN 7.4 g/dL (6.0-8.5); Perinuclear Ab (P-ANCA) <1:20 titer (Neg:<1:20); QNTFERON TB Mitogen Value > 10.00 IU/mL (.); QNTFERON TB Nil Value 0.01 IU/mL (.); QNTFERON TB1+ Ag Value 0.01 IU/mL (.); QNTFERON TB2+ Ag Value 0.14 IU/mL (.); QNTIFERON TB Positive Criteria Negative (Negative); V-Zoster IgG (Immunity) 1494 index (Immune >165)
== END | disposition home or self-care (01) ==
PROVIDERS: PCP Internal Medicine; Referring Provider Internal Medicine Gastroenterology; Visit Provider Internal Medicine Gastroenterology
DX: K50.90 Crohn's disease, unspecified, without complications (principal)
CPT/HCPCS: 36415; 80053; 80074; 82784; 82785; 83516; 83615; 84165; 85025; 85652; 86140; 86225; 86235; 86255; 86256; 86334; 86480; 86615; 86735; 86762; 86787

== ENCOUNTER → 2022-12-27 | Outpatient (CLI) | payer BC, SELFPAY ==
--- NOTE | 2022-12-27 09:16 | MRI_ITS ---
ACR Level 3 findings have been noted. An addendum which confirms receipt of the report will follow. MR Enterography Abdomen/Pelvis WO/W Contrast 12/27/2022 10:43 AM COMPARISON: None available. CLINICAL HISTORY: K50.90 - Crohn''s disease, unspecified, without complications; pt had prev surgery 07/2022 for fistula repair TECHNIQUE: Following oral administration of enteric contrast and administration of glucagon, multiplanar T1 and T2 weighted images along with dynamic post-gadolinium images were obtained through the abdomen and pelvis. FINDINGS: GI Tract: Mild short segment narrowing of the mid transverse colon. Multiple short loops of small bowel demonstrates circumferential wall thickening with slight mucosal hyperenhancement.. No fistula, or obstruction. Liver: 2.7 cm T2 hyperintense mass in the right hepatic lobe with progressive centripetal nodular enhancement compatible with hemangioma. Gallbladder: Not visualized. Spleen: Unremarkable Pancreas: Unremarkable Adrenal Glands: Unremarkable Kidneys: Unremarkable Reproductive: 6.2 x 4 centimeter T2 hyperintense well-circumscribed nonenhancing cyst in the left adnexa. Bladder: Unremarkable Lymphadenopathy: Absent Ascites: Absent Bones: Postsurgical changes of the anterior abdominal wall. MRI/Enterography Abd/Pel IMPRESSION: Findings suspicious for acute flare of Crohn''s disease. There is a possible mild stricture of the mid transverse colon. No fistula or obstruction. 6 cm well-circumscribed nonenhancing cyst in the left adnexa, likely arising from the left ovary. Recommend follow-up pelvic ultrasound in 6-12 weeks. 2.7 cm hepatic hemangioma. Electronically Signed: Brad El MD at 20:14 EDT ,
[2022-12-27 10:21] VITALS: BP 143/94; PULSE 81; RESP 16; TEMP 36.1; O2SAT 100; BMI 37.4
[2022-12-27] MEDS: Glucagon 1 MG/ML Syringe IV (11:05)
[2022-12-27 11:20] VITALS: BP 147/93; PULSE 100; RESP 16; O2SAT 96
== END | disposition home or self-care (01) ==
LOC: MRI 09:07
PROVIDERS: PCP Internal Medicine; Referring Provider Internal Medicine Gastroenterology; Visit Provider Internal Medicine Gastroenterology
DX: K50.90 Crohn's disease, unspecified, without complications (principal)
CPT/HCPCS: 74183; 96374; A9575; A4216; J1610

== ENCOUNTER → 2022-12-30 | Outpatient (CLI) | payer BC, SELFPAY ==
--- NOTE | 2022-12-30 10:29 | US_ITS ---
INDICATION: Left ovarian cyst history of hysterectomy. EXAMINATION: Ultrasound US Pelvis Non OB Complete With Transvaginal Imaging TECHNIQUE: Transabdominal and transvaginal pelvic ultrasound was performed. Grayscale, spectral waveform, and color flow Doppler evaluation of the adnexa. COMPARISON: MRI abdomen and pelvis 12/27/2022 FINDINGS: UTERUS: Surgically absent. RIGHT OVARY: 2.2 x 2.0 x 1.6 cm. Non-enlarged, normal echogenicity. There is normal arterial inflow and venous outflow present in the right ovary. LEFT OVARY: 6.6 x 5.5 x 5.5 cm. Cystic lesion with diffuse low-level reticular echoes internally measures 5.9 x 4.9 x 4.7 cm. There is normal arterial inflow and venous outflow present in the left ovary. FREE FLUID: None. US/Pelvic (Non ) IMPRESSION: Complex cyst left ovary measuring up to 5.9 cm and corresponding to the MRI findings. Findings may represent hemorrhagic cyst or endometrioma. Sonographic follow-up is recommended in 6-12 weeks. Electronically Signed: Yunior Mayorga MD at 18:25 EDT ,
== END | disposition home or self-care (01) ==
PROVIDERS: Internal Medicine Gastroenterology; PCP Internal Medicine; Referring Provider Obstetrics & Gynecology; Visit Provider Obstetrics & Gynecology
DX: K50.813 Crohn's disease of both small and large intestine with fistula (principal); N83.202 Unspecified ovarian cyst, left side; Z90.710 Acquired absence of both cervix and uterus
CPT/HCPCS: 36415; 76830; 76856; 93976

== ENCOUNTER 2023-01-02 10:42 | Day surgery (SDC) | payer BC, SELFPAY ==
[2023-01-02] VITALS (7 sets, daily range): BP systolic 104–123; BP diastolic 67–81; PULSE 78–95; RESP 16–18; TEMP 36.3–37.2; O2SAT 99–100; BMI 37.0
--- NOTE | 2023-01-02 | ESO_PTH ---
PATIENT: FITZ NICHOLAS LOC: [facility] U#:[id number] AGE/SX: 37/F ROOM: RE01/02/[address]: Dr. Rogelio Lopez DO : 1985 BED: DIS: 01/02/2023 SPEC #: [id number] RECD: 01/02/23 14:16 STATUS: VIPUL RENETTA #: [id number] MEGHAN: 01/02/23 00:[address]: Rogelio Lopez DEPT: SURGICAL PATHOLOGY RECD BY: Antwon Heard ENTERED: 01/03/23 11:56 SP TYPE: BRENDEN SORENSEN DR: Dr. Onidna Justin MD Tissues: A - Duodenum, NOS B - Esophagus, NOS C - Ileum, NOS D - COLON BIOPSY Procedures: Special Stain Group II Surgery Specimen Level IV Alcian Blue/PAS (control) HEADER OPERATION: Colonoscopy, EGD (MAC), biopsy PRE-OP DIAGNOSIS: Crohn?s disease, fistula TISSUE SUBMITTED: A ? Duodenum biopsy, B ? Distal esophagus biopsy, C ? Terminal ileum biopsy, D ? Random colonic biopsy MICROSCOPIC DIAGNOSIS A. Duodenum, biopsy: Fragments of duodenal mucosa, no pathologic diagnosis. B. Distal esophagus, biopsy: Fragments of gastroesophageal mucosa with moderate chronic inflammation and changes consistent with gastroesophageal reflux disease. Intestinal metaplasia (goblet cell metaplasia) not identified. See comment. C. Terminal ileum, biopsy: Fragments of small intestinal mucosa, no pathologic diagnosis. D. Colon, random biopsy: Fragments of colonic mucosa, no pathologic diagnosis. SJ:ankur 01/04/2023 COMMENT B. Alcian blue/PAS stain with matched control is used in the evaluation of the specimen. MICROSCOPIC DESCRIPTION Slides are reviewed. GROSS DESCRIPTION A - Received in fixative is one container labeled with the patient's name and designated duodenum biopsy. The specimen consists of multiple irregular fragments of light cruz soft tissue that in aggregate measure 1.0 x 0.5 x 0.1 cm. The specimen is totally submitted in one cassette. B - Received in fixative is one container labeled with the patient's name and designated distal esophagus biopsy. The specimen consists of two irregular fragments of light cruz soft tissue that in aggregate measure 1.0 x 0.3 x 0.1 cm. The specimen is totally submitted in one cassette. C - Received in fixative is one container labeled with the patient's name and designated terminal ileum. The specimen consists of two irregular fragments of light cruz soft tissue that in aggregate measure 0.5 x 0.3 x 0.1 cm. The specimen is totally submitted in one cassette. D - Received in fixative is one container labeled with the patient's name and designated random colon biopsy. The specimen consists of multiple irregular fragments of light cruz soft tissue that in aggregate measure 2.0 x 0.5 x 0.1 cm. The specimen is totally submitted in one cassette. / AM:ankur 01/03/2023 TC:3 CPT: 83116 x4, 70234
--- NOTE | 2023-01-02 11:02 | HP.PCM_ITS ---
History and Physical Date of Admission: 01/02/23 Crohn?s history diagnosed 2010. Symptoms were severe diarrhea with blood, weight loss and abdominal pain. Underwent colonoscopy 2010. Sulfasalazine first attempted following colonoscopy and experienced systemic rash and hives; Pentasa then started and stopped following divorce in 2012 following which she has an improvement of symptoms. [facility] seen several years later when she began to have return of symptoms who contradicted her Crohn?s diagnosis. Hysterectomy 08.02.22 to address pelvic pain and heavy menses; during this surgery it was noted that she had fistula from colon to her urinary bladder, repaired. Symptoms continue with diarrhea 10+/day, general malaise and abdominal pain. Several weeks ago she had ulcer and significant tenderness in her mouth that lasted for several weeks. ROS Const Constitutional: No body ache, chills, excessive sweating, fatigue, fever(s), frequent falls, headache(s), snoring, weakness, weight change, sleep problems or change in appetite Eyes Eyes: No blurry vision, change in vision, eye pain or Light sensitivity ENT ENT: No abnormal hearing, ear or mastoid pain, tinnitus, nasal congestion, headache(s), neck pain or sore throat Resp Respiratory: No cough, shortness of breath, snoring or wheezing Cardio Cardiology: No chest pain at rest, chest pain with exertion, excessive sweating, shortness of breath, dyspnea on exertion, lightheadedness, orthopnea or palpitations Gastro GI: No abdominal pain, change in bowel habits, constipation, cramping, diarrhea, nausea/dyspepsia or vomiting Genitourinary-Female: No burning urination, painful urination, urinary incontinence, urinary frequency or abnormal vaginal bleeding Musc Musculoskeletal: No abnormal gait, joint pain, back pain, limited range of motion, neck pain, numbness or tingling Skin Skin: No dry skin, redness, lesions, itchy eyes, rash or wounds Neuro Neurology: No abnormal gait, abnormal hearing, abnormal speech, dizziness, weakness, frequent falls, headache(s), memory loss, numbness or tingling Psych Psychiatric: No anxiety, No change in appetite, No depression, No memory loss and No Thoughts of harming yourself/Others Endo Endocrine: No cold intolerance, excessive sweating, fatigue, flushing, heat intolerance, increased thirst/drinking, increased hunger or weight change Aller/Imm Allergy/Immunologic: No itchy eyes, seasonal allergy symptoms, hives or wheezing David/Lymp Hematologic/Lymphatic: No easy bleeding, easy bruising or enlarged lymph nodes Exam Const General: cooperative, comfortable and no acute distress Orientation: alert, awake and oriented x3 HENMT Head: normal to inspection, normocephalic and atraumatic Ears: hearing grossly normal bilaterally Neck Neck: normal visual inspection and full ROM Neck mass: No Resp Effort & Inspection: normal respiratory effort and able to speak in complete sentences Auscultation: Bilateral: Clear to Auscultation Cardio Rate: regular rate Rhythm: regular rhythm Heart Sounds: S1 normal and S2 normal GI Palpation: soft (Nontender, no palpable organomegaly) Neuro General: patient alert, patient awake, patient oriented x3, moves all extremities and CN's II-XI intact bilaterally Extrem General: no clubbing, cyanosis or edema Psych Appearance: grossly normal Mental Status: mental status grossly normal Mood: congruent mood Affect: normal affect Quality Reporting Tobacco Screening ([facility]) Smoking Status: Never smoker Assessment and Plan Assessment and Plan (1) Crohns disease: ?Status:?Inactive ?Qualifiers: ?Digestive disease complication type:?without complication?? Gastrointestinal tract location:?unspecified location? Qualified Code(s):?K50.90 - Crohn's disease, unspecified, without complications ?Plan: History of Crohn's disease involving the colon.? Recent fistulization possibly from Crohn's disease connecting colon to the bladder.? She will need a colonoscopy to evaluate her lower GI tract along with a MR enterography, ESR, CRP and [facility] IBD SGI.? We will also need fecal calprotectin at in the fecal elastase along with fecal leukocytes and stool for enteric pathogens and C. difficile.? The goal would likely to be for her to go on Stelara therapy.? She will need hepatitis B, QuantiFERON gold and chest x-ray. (2) Fistula: ?Status:?Inactive ?Comment: Fistulizing Crohn's disease 2021 - colon to urinary bladder. (3) Crohn's disease of both small and large intestine with fistula: ?Status:?Chronic ?Comment: Colonic-urinary bladder fistula ? ? ? Orders: Orders Rubella IgG Today K50.90 - Crohn's disease, unspecified, without complications ? Comprehensive Metabolic Profil Today K50. - Crohn's disease, unspecified, without complications ? CRP Today K50. - Crohn's disease, unspecified, without complications ? LDH Today K50. - Crohn's disease, unspecified, without complications ? CBC W/Diff, Automated Today K50. - Crohn's disease, unspecified, without complications ? Erythrocyte Sed Rate Today K50. - Crohn's disease, unspecified, without complications ? ROB Comprehensive Panel Today K5 - Crohn's disease, unspecified, without complications ? Calprotectin, Stool Today K50. - Crohn's disease, unspecified, without complications ? OVA+PARA w/Giardia EIA [id number] Today K5 - Crohn's disease, unspecified, without complications ? CDIFF (PCR) Today K50. - Crohn's disease, unspecified, without complications ? ENTERIC PATHOGEN PANEL STOOL Today K50. - Crohn's disease, unspecified, without complications, K58.9 - Irritable bowel syndrome without diarrhea ? Stool Occult Blood iFOB Today K5 - Crohn's disease, unspecified, without complications ? Stool Lactoferrin/WBC Today K50. - Crohn's disease, unspecified, without complications ? Enterography Abd/Pel Today K5 - Crohn's disease, unspecified, without complications ? Hepatitis Panel Acute Today K5 - Crohn's disease, unspecified, without complications ? ANCA Today K5 - Crohn's disease, unspecified, without complications ? Celiac Disease Profile Today K5 - Crohn's disease, unspecified, without c omplications ? Immunoglobulins G/A/M/E Today K5 - Crohn's disease, unspecified, without complications ? OH + Protein Elect, Serum Today K5 - Crohn's disease, unspecified, without complications ? Mumps Antibody, IgM Today K5 - Crohn's disease, unspecified, without complications ? Pancreatic Elastase, Fecal Today K5 - Crohn's disease, unspecified, without complications ? B. pertussis IgG Today K5 - Crohn's disease, unspecified, without complications ? Quantiferon TB-Gold+ Today K50.90 - Crohn's disease, unspecified, without complications ? V-Zoster IgG (Immunity) Today K50.90 - Crohn's disease, unspecified, without complications ? I have examined the patient and the H&P has been reviewed. There are no clinical changes since date of exam.
[2023-01-02] MEDS: Lactated Ringers 1,000 ML 15 ML IV (11:17)
--- NOTE | 2023-01-02 12:45 | OP.EGD_ITS ---
Patient Name: Paola Chavarria Procedure Date: 01/02/2023 12:10 PM Date of : 1985 Age: 37 Procedure: Upper GI endoscopy Indications: Epigastric abdominal pain, Functional Dyspepsia Providers: Rogelio Lopez DO Referring MD: Ondina Justin MD Medicines: Monitored Anesthesia Care Patient Profile: This is a 37 year old female. Refer to note in patient chart for documentation of history and physical. Patient has symptoms of chronic epigastric abdominal pain. Complications: No immediate complications. Procedure: Pre-Anesthesia Assessment: - Prior to the procedure, a History and Physical was performed, and patient medications and allergies were reviewed. The patient is competent. The risks and benefits of the procedure and the sedation options and risks were discussed with the patient. All questions were answered and informed consent was obtained. Patient identification and proposed procedure were verified by the physician in the pre-procedure area. Mental Status Examination: alert and oriented. Airway Examination: normal oropharyngeal airway and neck mobility. Respiratory Examination: clear to auscultation. CV Examination: normal. Prophylactic Antibiotics: The patient does not require prophylactic antibiotics. Prior Anticoagulants: The patient has taken no previous anticoagulant or antiplatelet agents. ASA Grade Assessment: II - A patient with mild systemic disease. After reviewing the risks and benefits, the patient was deemed in satisfactory condition to undergo the procedure. The anesthesia plan was to use monitored anesthesia care (MAC). Immediately prior to administration of medications, the patient was re-assessed for adequacy to receive sedatives. The heart rate, respiratory rate, oxygen saturations, blood pressure, adequacy of pulmonary ventilation, and response to care were monitored throughout the procedure. The physical status of the patient was re-assessed after the procedure. After obtaining informed consent, the endoscope was passed under direct vision. Throughout the procedure, the patient's blood pressure, pulse, and oxygen saturations were monitored continuously. The Colonoscope was introduced through the mouth, and advanced to the second part of duodenum. The upper GI endoscopy was accomplished without difficulty. The patient tolerated the procedure well. Scope In: 12:20:26 PM Scope Out: 12:25:03 PM Total Procedure Duration Time 0 hours 4 minutes 37 seconds Findings: Mucosal changes including ringed esophagus and small-caliber esophagus were found in the middle third of the esophagus and in the lower third of the esophagus. Biopsies were obtained from the proximal and distal esophagus with cold forceps for histology of suspected eosinophilic esophagitis. Verification of patient identification for the specimen was done. Estimated blood loss was minimal. Patchy mild inflammation characterized by erythema was found in the gastric body. Biopsies were taken with a cold forceps for histology. Biopsies were taken with a cold forceps for histology. No gross lesions were noted in the first portion of the duodenum. Biopsies were taken with a cold forceps for histology. Verification of patient identification for the specimen was done. Estimated blood loss was minimal. Impression: - Esophageal mucosal changes consistent with eosinophilic esophagitis. Biopsied. - Bile gastritis. Biopsied. - No gross lesions in the first portion of the duodenum. Biopsied. Recommendation: - Discharge patient to home. - Resume previous diet. - Continue present medications. - Await pathology results. Procedure Code(s): --- Professional --- 22610, Esophagogastroduodenoscopy, flexible, transoral; with biopsy, single or multiple CPT copyright 2017 [employer]. All rights reserved. The codes documented in this report are preliminary and upon vice president of manufacturing review may be revised to meet current compliance requirements. Rogelio Lopez DO 01/02/2023 12:44:59 PM This report has been signed electronically. Number of Addenda: 0 Note Initiated On: 01/02/2023 12:10 PM
--- NOTE | 2023-01-02 12:46 | OP.CCLET_ITS ---
01/02/2023 Ondina Justin MD [address] [place] [address] [place] [address] Re : Upper GI endoscopy procedure for Paola Chavarria Dear Dr. Justin This procedure was performed on Monday, January 02, 2023. My impressions and recommendations are as follows: Impressions : - Esophageal mucosal changes consistent with eosinophilic esophagitis. Biopsied. - Bile gastritis. Biopsied. - No gross lesions in the first portion of the duodenum. Biopsied. Recommendations : - Discharge patient to home. - Resume previous diet. - Continue present medications. - Await pathology results. My findings are described in the full procedure note, which is enclosed. If I can be of further assistance, please feel free to contact me at . Sincerely, Rogelio Lopez, 01/02/2023 12:44:59 PM This report has been signed electronically.
--- NOTE | 2023-01-02 12:50 | OP.COLON_ITS ---
Patient Name: Paola Chavarria Procedure Date: 01/02/2023 12:25 PM Date of : 1985 Age: 37 Procedure: Colonoscopy Indications: Crohn's disease of the small bowel and colon Providers: Rogelio Lopez DO Referring MD: Ondina Justin MD Medicines: Monitored Anesthesia Care Patient Profile: This is a 37 year old female. Refer to note in patient chart for documentation of history and physical. Patient has symptoms of chronic epigastric abdominal pain. Last Colonoscopy: more than 3 years ago. Complications: No immediate complications. Procedure: Pre-Anesthesia Assessment: - Prior to the procedure, a History and Physical was performed, and patient medications and allergies were reviewed. The patient is competent. The risks and benefits of the procedure and the sedation options and risks were discussed with the patient. All questions were answered and informed consent was obtained. Patient identification and proposed procedure were verified by the physician in the pre-procedure area. Mental Status Examination: alert and oriented. Airway Examination: normal oropharyngeal airway and neck mobility. Respiratory Examination: clear to auscultation. CV Examination: normal. Prophylactic Antibiotics: The patient does not require prophylactic antibiotics. Prior Anticoagulants: The patient has taken no previous anticoagulant or antiplatelet agents. ASA Grade Assessment: II - A patient with mild systemic disease. After reviewing the risks and benefits, the patient was deemed in satisfactory condition to undergo the procedure. The anesthesia plan was to use monitored anesthesia care (MAC). Immediately prior to administration of medications, the patient was re-assessed for adequacy to receive sedatives. The heart rate, respiratory rate, oxygen saturations, blood pressure, adequacy of pulmonary ventilation, and response to care were monitored throughout the procedure. The physical status of the patient was re-assessed after the procedure. After I obtained informed consent, the scope was passed under direct vision. Throughout the procedure, the patient's blood pressure, pulse, and oxygen saturations were monitored continuously. The Colonoscope was introduced through the anus and advanced to the terminal ileum. The colonoscopy was performed without difficulty. The patient tolerated the procedure well. The quality of the bowel preparation was adequate. Scope In: 12:26:50 PM Scope Withdrawal Time 0 hours 9 minutes 7 seconds Scope Out: 12:38:49 PM Total Procedure Duration Time 0 hours 11 minutes 59 seconds Findings: The perianal and digital rectal examinations were normal. An area of mildly congested mucosa was found in the sigmoid colon and at the splenic flexure. Biopsies were taken with a cold forceps for histology. Verification of patient identification for the specimen was done. Estimated blood loss was minimal. The terminal ileum appeared normal. Biopsies were taken with a cold forceps for histology. Verification of patient identification for the specimen was done. Estimated blood loss was minimal. Impression: - Congested mucosa in the sigmoid colon and at the splenic flexure. Biopsied. - The examined portion of the ileum was normal. Biopsied. Recommendation: - Discharge patient to home. - Resume previous diet. - Continue present medications. - Await pathology results. - Repeat colonoscopy in 2 years for surveillance based on pathology results. Procedure Code(s): --- Professional --- 88592, Colonoscopy, flexible; with biopsy, single or multiple CPT copyright 2017 [employer]. All rights reserved. The codes documented in this report are preliminary and upon server administrator review may be revised to meet current compliance requirements. Rogelio Lopez DO 01/02/2023 12:50:16 PM This report has been signed electronically. Number of Addenda: 0 Note Initiated On: 01/02/2023 12:25 PM
--- NOTE | 2023-01-02 12:51 | OP.CCLET_ITS ---
01/02/2023 Ondina Justin MD [address] [place] [address] [place] [address] Re : Colonoscopy procedure for Paola Chavarria Dear Dr. Justin This procedure was performed on Monday, January 02, 2023. My impressions and recommendations are as follows: Impressions : - Congested mucosa in the sigmoid colon and at the splenic flexure. Biopsied. - The examined portion of the ileum was normal. Biopsied. Recommendations : - Discharge patient to home. - Resume previous diet. - Continue present medications. - Await pathology results. - Repeat colonoscopy in 2 years for surveillance based on pathology results. My findings are described in the full procedure note, which is enclosed. If I can be of further assistance, please feel free to contact me at . Sincerely, Rogelio Lopez, 01/02/2023 12:50:16 PM This report has been signed electronically.
[2023-01-06 10:09] LABS: Calprotectin, Stool <5 ug/g (0-120)
[2023-01-06 14:09] LABS: Pancreatic Elastase, Fecal 452 (>200)
== END 2023-01-02 13:39 | disposition home or self-care (01) ==
LOC: EN 10:42 → AC 10:45
PROVIDERS: PCP Internal Medicine; Referring Provider Internal Medicine Gastroenterology; Visit Provider Internal Medicine Gastroenterology
PROC: 0DJD8ZZ Inspection of Lower Intestinal Tract, Via Natural or Artificial Opening Endoscopic (ICD-10-PCS; CPT 45378; principal; 2023-01-02 11:55)
DX: K50.813 Crohn's disease of both small and large intestine with fistula (principal); K29.70 Gastritis, unspecified, without bleeding; Z90.710 Acquired absence of both cervix and uterus; E66.9 Obesity, unspecified; I10 Essential (primary) hypertension; K21.9 Gastro-esophageal reflux disease without esophagitis; Z79.899 Other long term (current) drug therapy
CPT/HCPCS: 45380; 43239; 82274; 82653; 83630; 83993; 87177; 87209; 87329; 87493; 87506; 88305; 88313; J7120; J2405

== ENCOUNTER → 2023-01-18 | Outpatient (CLI) | payer BC, SELFPAY ==
--- NOTE | 2023-01-18 15:59 | RAD_ITS ---
STUDY: X-RAY - ABDOMEN/PELVIS REASON FOR EXAM: Female, 37 years old. Agile Capsule TECHNIQUE: Single AP view of the abdomen / pelvis. COMPARISON: None. FINDINGS: Normal visualized lung bases. Foreign body consistent with history of Agile Capsule seen in position compatible with the rectum. There is an unremarkable bowel gas pattern. There is no demonstrated free abdominal air. The visualized liver, spleen and kidneys are grossly normal in size and morphology. Normal soft tissue structures. Normal visualized osseous structures. RAD/Abdomen Single View IMPRESSION: Foreign body consistent with history of Agile Capsule seen in position compatible with the rectum. Electronically Signed: Andrea Wong MD at 23:00 EDT ,
== END | disposition home or self-care (01) ==
PROVIDERS: PCP Internal Medicine; Referring Provider Internal Medicine Gastroenterology; Visit Provider Internal Medicine Gastroenterology
DX: K50.813 Crohn's disease of both small and large intestine with fistula (principal)
CPT/HCPCS: 74018

== ENCOUNTER 2023-01-28 10:50 | Emergency (ER) | payer BC, SELFPAY ==
[2023-01-28 10:51] VITALS: BP 139/102; PULSE 103; RESP 18; TEMP 36; O2SAT 100; BMI 37.3
--- NOTE | 2023-01-28 11:02 | CT_ITS ---
INDICATION: right flank pain EXAMINATION: CT ABDOMEN AND PELVIS WITHOUT CONTRAST - CT Abdomen And Pelvis W/O Contrast Injection TECHNIQUE: Helically acquired images were obtained of the abdomen and pelvis without oral or IV contrast. A radiation dose optimization technique was used for this scan. IV Contrast dosage and agent: None. Oral contrast: None. RADIATION DOSAGE (If Supplied By Facility): CTDIvol = ( 18.14 ) mGy, DLP = ( 956.35 ) mGycm COMPARISON: FINDINGS: LOWER CHEST: Lung bases are clear. No cardiomegaly or pericardial effusion. LIVER: Fatty infiltration. No focal mass. GALLBLADDER AND BILIARY TREE: Status post cholecystectomy. No intra- or extrahepatic biliary ductal dilation. PANCREAS: No focal cystic or solid mass. SPLEEN: Normal size without focal cystic or solid mass. ADRENAL GLANDS: No nodules. KIDNEYS AND URETERS: Right mid pole nonobstructing calculus 1.2 cm in maximal dimension. Right posterior midpole nonobstructing calculus 0.3 cm. Left mid pole nonobstructing calculus 0.2 cm. Left lower pole nonobstructing calculus 0.3 cm. Mild right perinephric inflammatory change. Normal renal size and position. No hydronephrosis. Ureters are normal in course and caliber. PERITONEUM: No ascites or free air. No other fluid collection. BOWEL: No evidence of acute appendicitis. No stomach or bowel distension. No focal inflammatory change. LYMPH NODES: No enlarged mesenteric or retroperitoneal lymph nodes. VESSELS: Aorta is non-dilated. URINARY BLADDER: Unremarkable. REPRODUCTIVE ORGANS: No pelvic masses. ABDOMINAL WALL: Wide neck anterior abdominal wall hernia extending from the umbilicus distally 4.2 cm transverse by 3.5 cm AP. BONES: No lytic or blastic abnormality. CT/Abdomen/Pelvis without Cont IMPRESSION: Bilateral nonobstructing renal calculi as above. Mild right perinephric inflammatory change which could represent pyelonephrosis/pyelonephritis. Fatty liver. Status post cholecystectomy. Umbilical hernia. Electronically Signed: Jacky Contreras MD, GÉNESIS at 12:06 EDT ,
--- NOTE | 2023-01-28 11:03 | EX.ED.DYSGE1 ---
HPI <DOUG Cordoba - Last Filed: 01/28/23 14:44> History of Present Illness Chief Complaint: Flank Pain Narrative Narrative: 37-year-old female presents with few days of right flank/side pain that worsened today. It seems to be radiating to the right lower abdominal area. She had 1 episode of hematuria couple days ago but since then has normal urination. She became very nauseous this morning with no vomiting. No fever or chills. It feels like when she has had kidney stones in the past and she has required surgery x1 for this. She also has Crohn's disease but is not on medication. She has had no change in her chronic diarrhea. She has had a cholecystectomy and hysterectomy. FORMERLY [facility], 1928–1983 <DOUG Cordoba - Last Filed: 01/28/23 14:44> FORMERLY [facility], [facility] Medical History (Updated 01/28/23 @ 12:16 by DOUG Cordoba) Abnormal Pap smear of cervix Abnormal ultrasound of breast Acute sinusitis, unspecified Anxiety Blocked lacrimal duct Crohn's disease Crohns disease Depression Fistula Heartburn Hypertension Hypertension Iron deficiency anemia during Low iron Migraine headache Non-smoker Posterior right knee pain Right knee pain Thyromegaly Home Medications duloxetine 30 mg capsule,delayed release 30 mg PO BID #180 caps 10/29/21 [Rx Last Taken Unknown] bupropion HCl 300 mg 24 hr tablet, extended release 300 mg PO QAM 3 months #90 tabs 06/27/22 [Rx Last Taken Unknown] sumatriptan succinate 25 mg tablet 25 mg PO PRN PRN MIGRAINES 07/19/22 [History Last Taken Unknown] hydrochlorothiazide 25 mg tablet 25 mg PO DAILY 12/30/22 [History Last Taken Unknown] budesonide 3 mg capsule,delayed,extended release 9 mg PO DAILY #90 ea 01/25/23 [Rx Last Taken Unknown] cephalexin 500 mg capsule 500 mg PO Q6 7 days #28 CAPSULES 01/28/23 [Rx Last Taken Unknown] ketorolac 10 mg tablet 10 mg PO Q8H PRN pain #10 tabs 01/28/23 [Rx Last Taken Unknown] ondansetron 4 mg disintegrating tablet 4 mg PO Q8H PRN PRN Nausea #10 tabs 01/28/23 [Rx Last Taken Unknown] Allergy/AdvReac Type Severity Reaction Status Date / Time guaifenesin [From Mucinex] Allergy Mild chest pain Verified 01/28/23 10:52 hydrocodone Allergy Rash Verified 01/28/23 10:52 Sulfa (Sulfonamide Allergy Rash Verified 01/28/23 10:52 Antibiotics) Family History Grandmother Bladder cancer Diabetes CAD (coronary artery disease) Leukemia Grandfather Heart disease CAD (coronary artery disease) Mother Depression with anxiety Father Hypothyroidism Hypertension Kidney stones Depression with anxiety Surgical History (Updated 12/30/22 @ 11:38 by Gladis Archer) H/O colonoscopy H/O colposcopy with cervical biopsy H/O lithotripsy H/O tooth extraction History of esophagogastroduodenoscopy (EGD) History of tonsillectomy History of total abdominal hysterectomy Hx of total hysterectomy S/P bunionectomy S/P cholecystectomy Status post hysterectomy Social History Smoking Status: Never smoker alcohol intake: current details: social substance use type: does not use caffeine: Yes what type of physical activity do you participate in: walking frequency: 5-6 times per week seatbelt use: always do you feel safe at home: Yes additional social history: TJ- [facility] ROS <DOUG Cordoba - Last Filed: 01/28/23 14:44> ROS ED ROS Narrative Constitutional: Negative for fever, chills, malaise. CVS: Negative for chest pain. Respiratory: Negative for shortness of breath, cough. GI: Positive for abdominal pain, nausea. Negative for vomiting,melena, hematochezia. : Positive for hematuria. Negative for dysuria or frequency. EXAM <DOGU Cordoba - Last Filed: 01/28/23 14:44> Physical Exam Narrative Exam Narrative: CONST: Patient sitting in no acute distress. EYES: Normal inspection. NECK: Normal inspection. RESP: No respiratory distress, CTAB. CVS: Regular rate and rhythm, no murmur, no gallop. ABD: Soft with slight right lower quadrant tenderness, no guarding or rebound. Back: Normal inspection, no CVA tenderness. SKIN: Color normal, no rash, warm, dry, intact. EXTREMITIES: Normal appearance, no pedal edema. NEURO: Oriented x4. PSYCH: Normal affect. Const Vital Signs: 01/28/23 10:51 Temperature 96.8 F L Temperature Source Temporal Pulse Rate 103 H Respiratory Rate 18 Blood Pressure 139/102 H Blood Pressure Mean 114 Pulse Ox 100 Oxygen Delivery Method Room Air <Dr. Moustapha Orta MD - Last Filed: 01/28/23 15:33> Physical Exam Const Vital Signs: 01/28/23 10:51 Temperature 96.8 F L Temperature Source Temporal Pulse Rate 103 H Respiratory Rate 18 Blood Pressure 139/102 H Blood Pressure Mean 114 Pulse Ox 100 Oxygen Delivery Method Room Air MDM <DOUG Cordoba - Last Filed: 01/28/23 14:44> [facility] MDM Narrative Medical decision making narrative: Patient here with right flank pain and nausea. She appears well and nontoxic. Heart rate is 103 with otherwise unremarkable vital signs. On exam she had mild right lower abdominal tenderness but no CVA tenderness. No peritoneal signs. Differential includes kidney stones, Crohn's flare, appendicitis, ovarian cyst. With recent hematuria ureteral stone is most likely so labs and a CT without contrast were ordered. CBC shows white count of 8.1 and is within normal limits. BMP shows normal BUN of 17, creatinine 0.9. UA has significant blood and [address] shows right pyelonephritis with no stone. She was treated with analgesia, Rocephin, and Keflex for home to cover pyelonephritis. Since she has had recurrent kidney issues I provided a urology referral. She was discharged in stable condition. I considered admission for pyelonephritis but patient's pain is well controlled, afebrile with stable vital signs. No signs of urosepsis. Lab Data Attestation: I reviewed the patient's lab results. Labs: Laboratory Results - last 24 hr 01/28/23 01/28/23 01/28/23 11:25 11:25 11:39 WBC 8.1 RBC 5.43 H Hgb 14.7 Hct 44.7 MCV 82.3 MCH 27.1 MCHC 32.9 RDW Std Deviation 47.7 H RDW Coeff of [place] 16.1 H Plt Count 260 MPV 8.5 Immature Gran % (Auto) 0.200 Neut % (Auto) 51.2 Lymph % (Auto) 41.1 H [place] % (Auto) 4.9 Eos % (Auto) 2.1 Baso % (Auto) 0.5 Absolute Neuts (auto) 4.1 Absolute Lymphs (auto) 3.33 Nucleated RBC % 0 Sodium 140 Potassium 3.3 L Chloride 104 Carbon Dioxide 26.0 Anion Gap 10 BUN 17 Creatinine 0.90 Estim Creat Clear Calc 75.34 Est GFR (MDRD) Af Amer 91 Est GFR (MDRD) Non-Af 76 BUN/Creatinine Ratio 18.9 Glucose 96 Calcium 9.9 Urine Color Yellow Urine Clarity Cloudy Urine pH 6.0 Ur Specific [place] 1.020 Urine Protein 100 H Urine Glucose (UA) Normal Urine Ketones 5 H Urine Occult Blood 250 H Urine Nitrite Negative Urine Bilirubin Negative Urine Urobilinogen Normal Ur Leukocyte Esterase 25 H Urine RBC > 100 SEEN Urine WBC 0-5 SEEN Ur Squamous Epith Cells 0-5 SEEN Urine Bacteria 0 SEEN Urine Mucus 0 SEEN Radiography Diagnostic Testing: Clinical Impression(s) from Imaging Studies Abdomen/Pelvis CT 01/28/23 11:02 IMPRESSION: Bilateral nonobstructing renal calculi as above. Mild right perinephric inflammatory change which could represent pyelonephrosis/pyelonephritis. Fatty liver. Status post cholecystectomy. Umbilical hernia. Electronically Signed: Jacky Contreras MD, GÉNESIS at 12:06 EDT , <Dr. Moustapha Orta MD - Last Filed: 01/28/23 15:33> [facility] MDM Narrative Medical decision making narrative: Patient here with right flank pain and nausea. She appears well and nontoxic. Heart rate is 103 with otherwise unremarkable vital signs. On exam she had mild right lower abdominal tenderness but no CVA tenderness. No peritoneal signs. Differential includes kidney stones, Crohn's flare, appendicitis, ovarian cyst. With recent hematuria ureteral stone is most likely so labs and a CT without contrast were ordered. CBC shows white count of 8.1 and is within normal limits. BMP shows normal BUN of 17, creatinine 0.9. UA has significant blood and [address] shows right pyelonephritis with no stone. She was treated with analgesia, Rocephin, and Keflex for home to cover pyelonephritis. Since she has had recurrent kidney issues I provided a urology referral. She was discharged in stable condition. I considered admission for pyelonephritis but patient's pain is well controlled, afebrile with stable vital signs. No signs of urosepsis. I have personally performed a face to face assessment of the patient and have reviewed the DWAINE Note. I performed a substantive portion of the visit including all aspects of the following. My masterson findings include: History is remarkable for flank pain. Patient has history of renal and ureterolithiasis. Patient does present with urinary symptoms. She denies fever, chills night sweats. Does report nausea without vomiting diarrhea. She has no history of trauma. Exam is markable for discomfort. There is CVA tenderness on the right. There is no suprapubic discomfort. The remainder of her exam is unremarkable. Medical Decision Making differential diagnosis would include pyelonephritis, obstructing ureteral stone, renal stone with infection. CBC, UA and electrolyte panel was obtained. Patient was medicated with improvement. Other additions or changes: CT is consistent with pyelonephritis. Urine culture was sent. Since patient is not febrile White count is normal renal function is normal she was discharged to home with oral antibiotics and given specific instructions when to return. Lab Data Labs: Laboratory Results - last 24 hr 01/28/23 01/28/23 01/28/23 11:25 11:25 11:39 WBC 8.1 RBC 5.43 H Hgb 14.7 Hct 44.7 MCV 82.3 MCH 27.1 MCHC 32.9 RDW Std Deviation 47.7 H RDW Coeff of [place] 16.1 H Plt Count 260 MPV 8.5 Immature Gran % (Auto) 0.200 Neut % (Auto) 51.2 Lymph % (Auto) 41.1 H [place] % (Auto) 4.9 Eos % (Auto) 2.1 Baso % (Auto) 0.5 Absolute Neuts (auto) 4.1 Absolute Lymphs (auto) 3.33 Nucleated RBC % 0 Sodium 140 Potassium 3.3 L Chloride 104 Carbon Dioxide 26.0 Anion Gap 10 BUN 17 Creatinine 0.90 Estim Creat Clear Calc 75.34 Est GFR (MDRD) Af Amer 91 Est GFR (MDRD) Non-Af 76 BUN/Creatinine Ratio 18.9 Glucose 96 Calcium 9.9 Urine Color Yellow Urine Clarity Cloudy Urine pH 6.0 Ur Specific [place] 1.020 Urine Protein 100 H Urine Glucose (UA) Normal Urine Ketones 5 H Urine Occult Blood 250 H Urine Nitrite Negative Urine Bilirubin Negative Urine Urobilinogen Normal Ur Leukocyte Esterase 25 H Urine RBC > 100 SEEN Urine WBC 0-5 SEEN Ur Squamous Epith Cells 0-5 SEEN Urine Bacteria 0 SEEN Urine Mucus 0 SEEN Radiography Diagnostic Testing: Clinical Impression(s) from Imaging Studies Abdomen/Pelvis CT 01/28/23 11:02 IMPRESSION: Bilateral nonobstructing renal calculi as above. Mild right perinephric inflammatory change which could represent pyelonephrosis/pyelonephritis. Fatty liver. Status post cholecystectomy. Umbilical hernia. Electronically Signed: Jacky Contreras MD, GÉNESIS at 12:06 EDT , Discharge Plan Triage Chief Complaint: Flank Pain ED Midlevel Provider: Demi Anderson ED Provider: Moustapha Orta Dx/Rx/DC Orders Clinical Impression: Pyelonephritis of right kidney Instructions: ED Pyelonephritis, Female (Adult) Prescriptions: New cephalexin 500 mg capsule 500 mg PO Q6 7 Days Qty: 28 0RF ondansetron 4 mg tablet,disintegrating 4 mg PO Q8H PRN PRN (Reason: Nausea) Qty: 10 0RF ketorolac 10 mg tablet 10 mg PO Q8H PRN (Reason: pain) Qty: 10 0RF No Action duloxetine 30 mg capsule,delayed release(DR/EC) 30 mg PO BID Qty: 180 3RF bupropion HCl 300 mg tablet extended release 24 hr 300 mg PO QAM 90 Days Qty: 90 1RF budesonide 3 mg capsule,delayed,extend.release 9 mg PO DAILY Qty: 90 2RF sumatriptan succinate 25 mg tablet 25 mg PO PRN PRN (Reason: MIGRAINES) hydrochlorothiazide 25 mg tablet 25 mg PO DAILY Primary Care Provider: Ondina Justin Referrals: Ondina Justin MD [Primary Care Provider] - Roney Seay MD [Med Staff - Active Staff] - Activity Restrictions/Additional Instructions: You have pyelonephritis which is a kidney infection. This started as a UTI and travels up towards the kidney. It is treated with antibiotics, pain control, nausea meds. Please return to ER if symptoms worsen. Disposition Disposition: Home, Self Care Discharge Date/Time: 01/28/23 13:38
[2023-01-28] MEDS: Ketorolac 15 MG/ML Vial IV (11:31)
[2023-01-28] MEDS: 0.9% Normal Saline 1,000 ML 999 ML IV (11:32)
[2023-01-28] MEDS: Ondansetron 4 MG/2 ML Vial IV (11:32)
[2023-01-28 11:38] LABS: Absolute Lymphocyte Count 3.33 X10^3/uL (0.83-4.51); Absolute Neutrophil Count 4.1 X10^3/uL (2.0-7.7); Basophil# 0.04 X10^3/uL; Basophil% 0.5 % (0-1); Eosinophil# 0.17 X10^3/uL; Eosinophils% 2.1 % (0-5); Hematocrit 44.7 % (37-47); Hemoglobin 14.7 g/dL (12.0-15.0); Lymphocyte # 3.33 X10^3/ul (0.83-4.51); Lymphocyte % 41.1 % (19-41); Mean Corp Hgb Conc 32.9 g/dL (32-36); Mean Corpuscular Hgb 27.1 pg (27.0-32.0); Mean Corpuscular Volume 82.3 fL (81-99); Mean Platelet Vol. 8.5 fl (6.2-12.0); Monocyte% 4.9 % (0-10); NRBC Flagged by Analyzer 0 % (0-5); Neutrophil # 4.14 X10^3/uL (2.7-7.7); Neutrophil % 51.2 % (47-70); Platelet Count 260 K/mm3 (150-450); RBC Distribution Width CV 16.1 % (11.6-14.6); RBC Distribution Width SD 47.7 fl (35.1-43.9); Red Blood Count 5.43 M/mm3 (4.2-5.4); White Blood Count 8.1 K/mm3 (4.4-11.0)
[2023-01-28 11:45] LABS: Bacteria 0 SEEN /hpf (None Seen); Mucous, Urine 0 SEEN /hpf (<or=2+)
[2023-01-28 11:47] LABS: Color, Urine Yellow (Yellow); Glucose, Dipstick Normal (Normal); Ketone-Dipstick 5 mg/dl (Negative); Leukocyte Esterase-Dipstick 25 /ul (Negative); Nitrite-Dipstick Negative (Negative); Occult Blood-Urine 250 /ul (Negative); Protein-Dipstick 100 mg/dl (Negative); Urine Bilirubin Dipstick Negative (Negative); Urine Clarity Cloudy (Clear); Urine Urobilinogen Normal (Normal)
[2023-01-28 11:49] LABS: Anion Gap 10 (5-15); BUN 17 mg/dL (7-18); BUN/Creat Ratio 18.9 RATIO (10-20); Calcium,Total 9.9 mg/dL (8.5-10.1); Chloride 104 mmol/L (98-107); EST Glomerular Filtration Rate 76 mL/min (>60); Est Glom Filt Rate - Afr Amer 91 mL/min (>60); Estimated Creatinine Clearance 75.34 ml/min; Glucose 96 mg/dL (74-106); Potassium 3.3 mmol/L (3.5-5.1); Sodium Level 140 mmol/L (136-145)
[2023-01-28 11:54] LABS: Red Blood Cells-Urine > 100 SEEN /hpf (0-5); Squamous Epithelial Cells - UA 0-5 SEEN /hpf (5-10); White Blood Cells 0-5 SEEN /hpf (0-5)
[2023-01-28] MEDS: Ceftriaxone 1 GM/50 ML BAG IV (12:45)
== END 2023-01-28 13:38 | disposition home or self-care (01) ==
PROVIDERS: Physician Assistant; Emergency Provider Emergency Medicine; PCP Internal Medicine; Visit Provider Emergency Medicine
DX: N12 Tubulo-interstitial nephritis, not specified as acute or chronic (principal); K50.90 Crohn's disease, unspecified, without complications; R31.9 Hematuria, unspecified; I10 Essential (primary) hypertension; Z79.899 Other long term (current) drug therapy; Z87.442 Personal history of urinary calculi
CPT/HCPCS: 74176; 80048; 81001; 85025; 87086; 87088; 96361; 96365; 96375; 99283; J7030; A4216; J2405

== ENCOUNTER → 2023-01-31 | Outpatient (CLI) | payer BC, SELFPAY ==
[2023-01-31 14:13] LABS: Mucous, Urine 0 SEEN /hpf (<or=2+)
[2023-01-31 15:19] LABS: Color, Urine Yellow (Yellow); Glucose, Dipstick Normal (Normal); Ketone-Dipstick Negative (Negative); Leukocyte Esterase-Dipstick 25 /ul (Negative); Nitrite-Dipstick Negative (Negative); Occult Blood-Urine 150 /ul (Negative); Protein-Dipstick 30 mg/dl (Negative); Specific Gravity, Urine 1.015 (1.002-1.030); Urine Bilirubin Dipstick Negative (Negative); Urine Clarity Sl. Cloudy (Clear); Urine Urobilinogen Normal (Normal); Urine pH 6.5 (5.0 - 8.0)
[2023-01-31 15:25] LABS: Bacteria 1+ /hpf (None Seen); Red Blood Cells-Urine 10-25 SEEN /hpf (0-5); Squamous Epithelial Cells - UA 0-5 SEEN /hpf (5-10); White Blood Cells 0-5 SEEN /hpf (0-5)
== END | disposition home or self-care (01) ==
LOC: BIMLAB 14:12
PROVIDERS: PCP Internal Medicine; Visit Provider Nurse Practitioner Family
DX: R31.9 Hematuria, unspecified (principal)
CPT/HCPCS: 81001; 87086; 87088

== ENCOUNTER → 2023-02-16 | Outpatient (CLI) | payer BC, SELFPAY ==
--- NOTE | 2023-02-16 08:19 | US_ITS ---
EXAM: US PELVIS TRANSABDOMINAL AND TRANSVAGINAL, COMPLETE CLINICAL INDICATION: ovarian cyst TECHNIQUE: Transabdominal and transvaginal pelvic ultrasound was performed with grayscale and color Doppler imaging. Transvaginal imaging was used for better evaluation of the endometrium and adnexa. COMPARISON: Pelvic ultrasound 12/30/2022. CT scan of the abdomen and pelvis 01/28/2023. FINDINGS: UTERUS/CERVIX: Hysterectomy. RIGHT OVARY: Unremarkable. Blood flow is present in the right ovary. The right ovary measures 3.0 x 1.6 x 1.7 cm. LEFT OVARY: Small collapsing 2.5 x 2.5 x 2 cm cyst left ovary. Blood flow is present in the left ovary. The left ovary measures 3.9 x 3.9 x 3.8 cm. FREE FLUID: None. BLADDER: Unremarkable as visualized. Wall is normal thickness for degree of distention. US/Pelvic w/ Transvaginal IMPRESSION: 1. Resolving hemorrhagic cyst left ovary. 2. Hysterectomy. Electronically Signed: Claus Abbott MD at 8:01 EDT ,
== END | disposition home or self-care (01) ==
LOC: OPUS 08:18
PROVIDERS: PCP Internal Medicine; Referring Provider Obstetrics & Gynecology; Visit Provider Obstetrics & Gynecology
DX: R10.2 Pelvic and perineal pain (principal); N83.202 Unspecified ovarian cyst, left side
CPT/HCPCS: 76830; 76856

== ENCOUNTER 2023-02-21 14:17 | Day surgery (SDC) | payer BC, SELFPAY ==
[2023-02-21] VITALS (7 sets, daily range): BP systolic 106–133; BP diastolic 60–81; PULSE 86–107; RESP 16–18; TEMP 36.2–36.8; O2SAT 95–99; BMI 38.2
[2023-02-21] MEDS: Lactated Ringers 1,000 ML 15 ML IV (14:52)
[2023-02-21] MEDS: Cefazolin 2 GM in 0.9% Normal Saline 100 ML IV (17:02)
--- NOTE | 2023-02-21 17:24 | DCINST_ITS ---
Discharge Instructions Diet Discharge Diet: No restrictions Activity Discharge Activity: Return to Normal Activity Dressing / Incision Call your doctor if you observe: Fever of 101 or Higher, Inability to urinate and Inability to have a bowel movement Follow Up Care Please Follow Up With: Carolina Grace MD When: Contact office for further instructions Test Results: Test results from this visit will be discussed in further detail at your follow- up appointment, if applicable. Discharge Plan Admission Attending Provider: Carolina Grace Primary Care Provider: Ondina Justin Discharge Orders/Prescriptions Prescriptions: New ondansetron HCl [ondansetron HCl] 8 mg tablet 8 mg PO Q8H PRN PRN (Reason: Nausea) 7 Days Qty: 20 1RF oxycodone-acetaminophen [oxycodone-acetaminophen] 5-325 mg tablet 2 tab PO Q8H PRN PRN (Reason: Pain) 7 Days Qty: 20 0RF cephalexin [cephalexin] 500 mg capsule 500 mg PO Q12 3 Days Qty: 6 0RF phenazopyridine [Pyridium] 200 mg tablet 200 mg PO TID PRN PRN (Reason: Bladder Spasms) 7 Days Qty: 30 1RF Continued duloxetine 30 mg capsule,delayed release(DR/EC) 30 mg PO BID Qty: 180 3RF budesonide 3 mg capsule,delayed,extend.release 9 mg PO DAILY Qty: 90 2RF hydrochlorothiazide 25 mg tablet 25 mg PO DAILY bupropion HCl 300 mg tablet extended release 24 hr 300 mg PO QAM 90 Days Qty: 90 1RF mesalamine 1.2 gram tablet,delayed release (DR/EC) 2.4 g PO BID 90 Days Qty: 360 3RF sumatriptan succinate 25 mg tablet 25 mg PO PRN PRN (Reason: MIGRAINES) Qty: 14 2RF Discontinued tamsulosin [Flomax] 0.4 mg capsule 0.4 mg PO DAILY Qty: 30 1RF Referrals / Follow Up: Ondina Justin MD [Primary Care Provider] - Disposition Disposition (needs filled in before D/C Order can be placed): Home, Self Care
--- NOTE | 2023-02-21 17:28 | OP.PCM_ITS ---
Report of Operation Date of Procedure: 02/21/23 Pre-Operative Diagnosis: Right UPJ calculus Post-Operative Diagnosis: Same Surgery/Procedure Performed:: Cystoscopy insertion of right ureteral stent Surgeon: Carolina Grace Type of Anesthesia: MAC Specimen's removed: None Description of Procedure: The patient is a 37-year-old female who presented to the office today in e xcruciating pain with nausea secondary to a large right UPJ calculus. Informed consent was obtained and she now presents for insertion of a right ureteral Stent. The patient was taken to the operating room and placed on the operating room table. Anesthesia monitored the head, neck, airway, IV access and vital signs throughout the case. Once anesthesia was appropriately administered, the patient was placed in dorsolithotomy position was prepped and draped in usual sterile fashion. The cystoscope was inserted through the urethra under direct visualization into the urinary bladder. The bladder mucosa was visualized in its entirety finding no evidence of mass, erythema or abnormality. The right ureteral orifice was intubated with a 0.035 Glidewire which was seen on fluoroscopy beyond the large calculus. A 6 [place] 24 cm JJ stent was placed over the wire with good positioning beyond the stent and also curled in the urinary bladder. The patient's bladder was then emptied and the cystoscope was removed. The patient was then awakened and taken to the recovery room in good condition. There were no complications during this procedure. Grafts/Implants Used: 6 x 24 JJ stent Complications None Admit VTE Documentation VTE Present on Admission: Yes VTE Mechan Device Prophylaxis: SCD's VTE Pharm Prophylaxis ordered?: No Reason prophylaxis not ordered:: Treatment Not Indicated
== END 2023-02-21 18:25 | disposition home or self-care (01) ==
LOC: SDC 14:18 → AC 14:19
PROVIDERS: PCP Internal Medicine; Referring Provider Urology; Visit Provider Urology
PROC: (CPT 52332; principal; 2023-02-21 16:50)
DX: N20.2 Calculus of kidney with calculus of ureter (principal); F32.A Depression, unspecified; F41.9 Anxiety disorder, unspecified; E66.9 Obesity, unspecified; I10 Essential (primary) hypertension; G43.909 Migraine, unspecified, not intractable, without status migrainosus; Z79.899 Other long term (current) drug therapy; Z68.38 Body mass index [BMI] 38.0-38.9, adult
CPT/HCPCS: 52332; 00910; 76000; J7120; C2617; J2405

== ENCOUNTER 2023-03-12 12:12 | Emergency (ER) | payer BC, SELFPAY ==
[2023-03-12 12:13] VITALS: BP 129/83; PULSE 89; RESP 18; TEMP 37; O2SAT 96; BMI 38.7
--- NOTE | 2023-03-12 12:50 | EDS_ITS ---
HPI History of Present Illness Chief Complaint: Lower Extremity Injury Narrative Narrative: Patient presents with right ankle pain. Yesterday she was coming down the steps. She stepped on one of her child's boots and it rolled her ankle. She still has pain laterally. No other injury. Worse if she bears weight. [facility] Medical History Abnormal Pap smear of cervix Abnormal ultrasound of breast Acute sinusitis, unspecified Anxiety Blocked lacrimal duct Crohn's disease Crohns disease Depression Fistula Heartburn Hematuria Hypertension Hypertension Iron deficiency anemia during Low iron Migraine headache Non-smoker Posterior right knee pain Right knee pain Right renal stone Thyromegaly Home Medications duloxetine 30 mg capsule,delayed release 30 mg PO BID #180 caps 10/29/21 [Rx Last Taken Unknown] hydrochlorothiazide 25 mg tablet 25 mg PO DAILY 12/30/22 [History Last Taken Unknown] bupropion HCl 300 mg 24 hr tablet, extended release 300 mg PO QAM 3 months #90 tabs 02/06/23 [Rx Last Taken Unknown] mesalamine 1.2 gram tablet,delayed release 2.4 g (2 x 1.2 gram) PO BID 90 days #360 tabs 02/09/23 [Rx Last Taken Unknown] sumatriptan succinate 25 mg tablet 25 mg PO PRN PRN MIGRAINES #14 tabs 02/15/23 [Rx Last Taken Unknown] Allergy/AdvReac Type Severity Reaction Status Date / Time guaifenesin [From Mucinex] Allergy Mild chest pain Verified 03/12/23 12:15 hydrocodone Allergy Rash Verified 03/12/23 12:15 Sulfa (Sulfonamide Allergy Rash Verified 03/12/23 12:15 Antibiotics) Family History Grandmother Bladder cancer Diabetes CAD (coronary artery disease) Leukemia Grandfather Heart disease CAD (coronary artery disease) Mother Depression with anxiety Father Hypothyroidism Hypertension Kidney stones Depression with anxiety Surgical History H/O colonoscopy H/O colposcopy with cervical biopsy H/O lithotripsy H/O tooth extraction History of cystoscopy History of esophagogastroduodenoscopy (EGD) History of tonsillectomy History of total abdominal hysterectomy Hx of total hysterectomy S/P bunionectomy S/P cholecystectomy Status post hysterectomy Social History Smoking Status: Never smoker alcohol intake: current details: social substance use type: does not use caffeine: Yes what type of physical activity do you participate in: walking frequency: 5-6 times per week seatbelt use: always do you feel safe at home: Yes additional social history: TJ- [facility] ROS ROS ED Constitutional Constitutional ED: Denies fever(s) Gastrointestinal Gastrointestinal: Denies nausea or vomiting Musculoskeletal Musculoskeletal: Reports arthralgias; Denies back pain, myalgias or neck pain Integumentary Denies rash Neurologic Neurologic: Denies paresthesias or weakness Hematologic/Lymphatic Hematologic/Lymphatic: Denies easy bleeding or easy bruising Allergic/Immunologic Allergic/Immunologic ED: Denies urticaria EXAM Physical Exam Narrative Exam Narrative: Patient awake alert no acute distress. HEENT shows no sign of trauma. Cardiorespiratory shows easy unlabored breathing. Saturations are normal at 96% on room air showing no hypoxia. Extremities do show some swelling and tenderness over the lateral malleolus and a little bit anterior to that. Stable exam though. There is no tenderness at the calcaneus, proximal fifth metatarsal, higher up in the tibia-fibula or near the knee. Achilles is intact by palpation and Freitas test. Const Vital Signs: 03/12/23 12:13 Temperature 98.6 F Temperature Source Temporal Pulse Rate 89 Respiratory Rate 18 Blood Pressure 129/83 H Blood Pressure Mean 98 Pulse Ox 96 Oxygen Delivery Method Room Air MDM MDM MDM Narrative Medical decision making narrative: Depend interpretation of the three-view x-ray of the right ankle shows no sign of acute fracture. Final reading by radiology is diffuse swelling without evidence of acute fracture. Patient will be placed in stirrup splint Aircast. If it is still hurting in a week or so it should be mckinley-rayed. Pryi-lbr-cauusnt meds ice elevation are appropriate. Radiography Diagnostic Testing: Clinical Impression(s) from Imaging Studies Ankle X-Ray 03/12/23 13:02 IMPRESSION: Diffuse swelling without evidence of acute fracture. Electronically Signed: Migue Renee MD at 13:40 EDT , Discharge Plan Triage Chief Complaint: Lower Extremity Injury ED Provider: Ba Leyva Dx/Rx/DC Orders Clinical Impression: Inversion sprain of right ankle Instructions: ED Sprain Ankle W X Ray Prescriptions: No Action duloxetine 30 mg capsule,delayed release(DR/EC) 30 mg PO BID Qty: 180 3RF hydrochlorothiazide 25 mg tablet 25 mg PO DAILY bupropion HCl 300 mg tablet extended release 24 hr 300 mg PO QAM 90 Days Qty: 90 1RF mesalamine 1.2 gram tablet,delayed release (DR/EC) 2.4 g PO BID 90 Days Qty: 360 3RF sumatriptan succinate 25 mg tablet 25 mg PO PRN PRN (Reason: MIGRAINES) Qty: 14 2RF Primary Care Provider: Ondina Justin Referrals: Ondina Justin MD [Primary Care Provider] - Activity Restrictions/Additional Instructions: Ice elevation or Tylenol for soreness. Elevate above the heart is much as possible for the first few days. Disposition Disposition: Home, Self Care
--- NOTE | 2023-03-12 13:02 | RAD_ITS ---
INDICATION: Trauma EXAMINATION/TECHNIQUE: X-RAY - RIGHT XR Ankle Min 3 Views 3 VIEWS COMPARISON: No prior examinations are available for comparison. FINDINGS: SOFT TISSUES: Soft tissue swelling of the lateral aspect of the ankle. No radiopaque foreign body. BONES/JOINTS: No acute fracture or subluxation.. Normal alignment. Preservation of the joint space.. No sclerotic or destructive changes observed. RAD/Ankle min 3 Views IMPRESSION: Diffuse swelling without evidence of acute fracture. Electronically Signed: Migue Renee MD at 13:40 EDT ,
== END 2023-03-12 14:26 | disposition home or self-care (01) ==
PROVIDERS: Emergency Provider Emergency Medicine; PCP Internal Medicine; Visit Provider Emergency Medicine
DX: S93.401A Sprain of unspecified ligament of right ankle, initial encounter (principal); X50.1XXA Overexertion from prolonged static or awkward postures, initial encounter; I10 Essential (primary) hypertension; Z79.899 Other long term (current) drug therapy
CPT/HCPCS: 73610; 99283

== ENCOUNTER 2023-03-16 12:24 | Day surgery (SDC) | payer BC, SELFPAY ==
[2023-03-16] MEDS: Lactated Ringers 1,000 ML 15 ML IV (12:49)
[2023-03-16 12:50] VITALS: BP 109/78; PULSE 93; RESP 18; TEMP 36.6; O2SAT 98; BMI 38.0
[2023-03-16] MEDS: Cefazolin 2 GM in 0.9% Normal Saline 100 ML IV (14:28)
--- NOTE | 2023-03-16 14:45 | PCM.OPRPT ---
Problems Associated Problem List Diagnoses (1) Right renal stone: Report of Operation Date of Procedure: 03/16/23 Pre-Operative Diagnosis: Right renal calculus Post-Operative Diagnosis: Same Surgery/Procedure Performed:: Right renal extracorporal shockwave lithotripsy Surgeon: Carolina Grace Type of Anesthesia: General Description of Procedure: The patient is a 37-year-old female who previously underwent a cystoscopy with right ureteral stent insertion now presents for definitive intervention for her large right renal calculus. Informed consent was obtained. The patient was taken to the operating room and placed on the operating room table. Anesthesia monitored the head, neck, airway, IV access and vital signs throughout the case. Once anesthesia was appropriate administered, the patient was repositioned on the table and the lithotripter was aligned with the stone. 3000 shocks were applied to the stone which appeared to be fragmented at the conclusion of the case. The patient was then awakened and taken to the recovery room in good condition. There were no complications during this procedure. Complications None Admit VTE Documentation VTE Present on Admission: Yes VTE Mechan Device Prophylaxis: SCD's VTE Pharm Prophylaxis ordered?: No Reason prophylaxis not ordered:: Treatment Not Indicated
--- NOTE | 2023-03-16 14:47 | DCINST_ITS ---
Discharge Instructions Diet Discharge Diet: No restrictions Activity Discharge Activity: Return to Normal Activity Dressing / Incision Call your doctor if you observe: Fever of 101 or Higher, Inability to urinate and Inability to have a bowel movement Follow Up Care Please Follow Up With: Carolina Grace MD When: The office will call the patient to make arrangements for follow-up Test Results: Test results from this visit will be discussed in further detail at your follow- up appointment, if applicable. Discharge Plan Admission Attending Provider: Carolina Grace Primary Care Provider: Ondina Justin Discharge Orders/Prescriptions Prescriptions: New oxycodone-acetaminophen [Percocet] 5-325 mg tablet 1 tab PO Q8H PRN (Reason: pain) 3 Days Qty: 10 0RF phenazopyridine [Pyridium] 200 mg tablet 200 mg PO TID PRN PRN (Reason: Bladder Spasms) 7 Days Qty: 30 1RF Continued duloxetine 30 mg capsule,delayed release(DR/EC) 30 mg PO BID Qty: 180 3RF hydrochlorothiazide 25 mg tablet 25 mg PO DAILY cephalexin 500 mg capsule 500 mg PO Q8H bupropion HCl 300 mg tablet extended release 24 hr 300 mg PO QAM 90 Days Qty: 90 1RF mesalamine 1.2 gram tablet,delayed release (DR/EC) 2.4 g PO BID 90 Days Qty: 360 3RF sumatriptan succinate 25 mg tablet 25 mg PO PRN PRN (Reason: MIGRAINES) Qty: 14 2RF Referrals / Follow Up: Ondina Justin MD [Primary Care Provider] - Disposition Disposition (needs filled in before D/C Order can be placed): Home, Self Care
[2023-03-16 15:21] VITALS: BP 109/78; BP 132/87; PULSE 96; RESP 18; TEMP 36.2; O2SAT 93
[2023-03-16 15:30] VITALS: BP 109/78; BP 114/75; PULSE 109; RESP 16; O2SAT 88
[2023-03-16 15:45] VITALS: BP 109/78; BP 123/85; PULSE 99; RESP 16; O2SAT 97
[2023-03-16 16:00] VITALS: BP 109/78; BP 117/74; PULSE 94; RESP 18; TEMP 36.6; O2SAT 95
[2023-03-16 16:11] VITALS: BP 109/78
== END 2023-03-16 16:59 | disposition home or self-care (01) ==
LOC: SDC 12:25 → AC 12:26
PROVIDERS: PCP Internal Medicine; Referring Provider Urology; Visit Provider Urology
PROC: (CPT 50590; principal; 2023-03-16 13:55)
DX: N20.2 Calculus of kidney with calculus of ureter (principal); K50.90 Crohn's disease, unspecified, without complications; Z87.442 Personal history of urinary calculi; I10 Essential (primary) hypertension; R31.9 Hematuria, unspecified
CPT/HCPCS: 50590; J7120; J2405

== ENCOUNTER → 2023-03-31 | Outpatient (CLI) | payer BC, SELFPAY ==
--- NOTE | 2023-03-31 10:05 | RAD_ITS ---
STUDY: X-RAY - ABDOMEN/PELVIS REASON FOR EXAM: Female, 37 years old. KIDNEY CALC. TECHNIQUE: Two AP supine views of the abdomen and pelvis. COMPARISON: CT of abdomen and pelvis dated January 28, 2023 FINDINGS: Normal visualized lung bases. There is an unremarkable bowel gas pattern. Right upper quadrant surgical clips are present. Right internal ureteral stent is present, which was not seen on imaging 3 exam. A cluster of small less than 3 mm stones are seen in the mid to lower pole of the right kidney. Normal soft tissue structures. Normal visualized osseous structures. RAD/Abdomen Single View IMPRESSION: 1. Right internal ureteral stent is present, which was not seen on imaging 3 exam. A cluster of small less than 3 mm stones are seen in the mid to lower pole of the right kidney. Electronically Signed: Bjorn Sánchez MD at 15:30 EDT ,
== END | disposition home or self-care (01) ==
LOC: MTRAD 10:04
PROVIDERS: PCP Internal Medicine; Referring Provider Urology; Visit Provider Urology
DX: N20.0 Calculus of kidney (principal)
CPT/HCPCS: 74018

== ENCOUNTER 2023-04-20 09:18 | Day surgery (SDC) | payer BC, SELFPAY ==
[2023-04-20] MEDS: Lactated Ringers 1,000 ML 15 ML IV (09:45)
[2023-04-20 09:46] VITALS: BP 126/78; PULSE 93; RESP 16; TEMP 36.7; O2SAT 92; BMI 38.2
[2023-04-20 09:49] LABS: Internal QC Validated? YES +Cl - CLEAR BKGD; Pregnancy, Urine Negative Negative
--- NOTE | 2023-04-20 10:50 | DCINST_ITS ---
Discharge Instructions Diet Discharge Diet: No restrictions Activity Discharge Activity: Return to Normal Activity Dressing / Incision Call your doctor if you observe: Fever of 101 or Higher, Inability to urinate and Inability to have a bowel movement Follow Up Care Please Follow Up With: Carolina Grace MD Test Results: Test results from this visit will be discussed in further detail at your follow- up appointment, if applicable. Discharge Plan Admission Attending Provider: Carolina Grace Primary Care Provider: Ondina Justin Discharge Orders/Prescriptions Prescriptions: New cephalexin [cephalexin] 500 mg capsule 500 mg PO Q12 3 Days Qty: 6 0RF Continued hydrochlorothiazide 25 mg tablet 25 mg PO DAILY phenazopyridine [Pyridium] 200 mg tablet 200 mg PO TID PRN PRN (Reason: Bladder Spasms) 7 Days Qty: 30 1RF oxycodone-acetaminophen [Percocet] 5-325 mg tablet 1 tab PO Q8H PRN (Reason: pain) 3 Days Qty: 10 0RF bupropion HCl 300 mg tablet extended release 24 hr 300 mg PO QAM 90 Days Qty: 90 1RF mesalamine 1.2 gram tablet,delayed release (DR/EC) 2.4 g PO BID 90 Days Qty: 360 3RF sumatriptan succinate 25 mg tablet 25 mg PO PRN PRN (Reason: MIGRAINES) Qty: 14 2RF Referrals / Follow Up: Ondina Justin MD [Primary Care Provider] - Disposition Disposition (needs filled in before D/C Order can be placed): Home, Self Care
--- NOTE | 2023-04-20 10:52 | OP.PCM_ITS ---
Report of Operation Date of Procedure: 04/20/23 Pre-Operative Diagnosis: Right renal calculus Post-Operative Diagnosis: Same Surgery/Procedure Performed:: Cystoscopy, right retrograde pyelogram, right ureteroscopy, holmium laser lithotripsy, stone basket extraction, right ureteral stent change Surgeon: Carolina Grace Type of Anesthesia: General Description of Procedure: The patient is a 37-year-old female who has already undergone cystoscopy with right ureteral stent insertion and an extracorporal shockwave lithotripsy for a large right UPJ calculus. She has retained pieces following the shockwave lithotripsy and now presents for removal. Informed consent was obtained. The patient was taken to the operating room and placed in a supine position on the operating room table. Anesthesia monitored the head, neck, airway, IV access and vital signs throughout the case. Once anesthesia was appropriately administered, she was placed into dorsolithotomy position was prepped and draped in usual sterile fashion. The cystoscope was inserted through the urethra under direct visualization into the urinary bladder. The right ureteral orifice was identified and the stent was removed after placement of a 0.035 Glidewire. A second Glidewire was inserted. The ureteroscope was used to ensure that the ureter was clean from fragments, and then the access sheath was placed over the Glidewire under fluoroscopic visualization. The flexible ureteroscope was then used through the access sheath and easily advanced into the renal pelvis. The stones were identified in the patient's lower pole. Grafts/Implants Used: 4.5 x 24 cm JJ stent
--- NOTE | 2023-04-20 10:52 | PCM.OPRPT ---
Report of Operation Date of Procedure: 04/20/23 Pre-Operative Diagnosis: Right renal calculus Post-Operative Diagnosis: Right ureteral calculi Surgery/Procedure Performed:: Cystoscopy, right retrograde pyelogram, right ureteroscopy, holmium laser lithotripsy, stone basket extraction, right ureteral stent change Surgeon: Carolina Grace Type of Anesthesia: General Specimen's removed: Ureteral stone fragments Description of Procedure: The patient is a 37-year-old female who has already undergone cystoscopy with right ureteral stent insertion and an extracorporal shockwave lithotripsy for a large right UPJ calculus. She has retained pieces following the shockwave lithotripsy and now presents for removal. Informed consent was obtained. The patient was taken to the operating room and placed in a supine position on the operating room table. Anesthesia monitored the head, neck, airway, IV access and vital signs throughout the case. Once anesthesia was appropriately administered, she was placed into dorsolithotomy position was prepped and draped in usual sterile fashion. The cystoscope was inserted through the urethra under direct visualization into the urinary bladder. The right ureteral orifice was identified and the stent was removed after placement of a 0.035 Glidewire. A second Glidewire was inserted. An 8 [place] cone-tip catheter was placed alongside the wires and contrast was injected in retrograde fashion and obstruction was met in the distal third of the ureter. The semirigid ureteroscope was then utilized to gain access to the right ureteral orifice and advanced until several calculi were encountered. The 200 ?m laser fiber was then used to break these stones into smaller pieces which were removed using the stone basket. Several fragments were removed along the middle aspect of the ureter. When all stone fragments seen were removed, the second Glidewire was replaced, the flexible ureteroscope was advanced over the wire into the renal pelvis without difficulty. The entire renal pelvis and all calyces were directly visualized finding no evidence of further stones. No other abnormalities were identified either. The entire length of the ureter was directly visualized with the ureteroscope as it was removed. There were no other findings. The remaining safety wire was then utilized to place a 4.5 [place] by 24 cm JJ stent with good positioning in the renal pelvis as well as the urinary bladder. The patient's bladder was then emptied and the cystoscope was removed. She was awakened and taken to the recovery room in good condition. There were no complications during this procedure. Grafts/Implants Used: 4.5 x 24 cm JJ stent Complications None Admit VTE Documentation VTE Present on Admission: Yes VTE Mechan Device Prophylaxis: SCD's VTE Pharm Prophylaxis ordered?: No Reason prophylaxis not ordered:: Treatment Not Indicated
[2023-04-20] MEDS: Cefazolin 2 GM in 0.9% Normal Saline 100 ML IV (11:04)
[2023-04-20 12:14] VITALS: BP 110/72; BP 126/78; PULSE 99; RESP 14; TEMP 36.5; O2SAT 93
[2023-04-20 12:29] VITALS: BP 110/72; BP 126/78; PULSE 95; RESP 14; O2SAT 93
[2023-04-20 12:33] VITALS: BP 110/70; BP 126/78; PULSE 90; RESP 14; TEMP 36.8; O2SAT 95
[2023-04-20 12:48] VITALS: BP 126/78
== END 2023-04-20 13:33 | disposition home or self-care (01) ==
LOC: SDC 09:18 → AC 09:19
PROVIDERS: PCP Internal Medicine; Referring Provider Urology; Visit Provider Urology
PROC: 0TJ98ZZ Inspection of Ureter, Via Natural or Artificial Opening Endoscopic (ICD-10-PCS; CPT 52352; principal; 2023-04-20 10:50)
DX: N20.1 Calculus of ureter (principal); K50.90 Crohn's disease, unspecified, without complications; I10 Essential (primary) hypertension; E66.9 Obesity, unspecified; Z68.38 Body mass index [BMI] 38.0-38.9, adult
CPT/HCPCS: 52356; 00918; 76000; 81025; 82360; J7120; J2405

== ENCOUNTER → 2023-06-12 | Outpatient (CLI) | payer BC, SELFPAY ==
[2023-06-12 12:47] LABS: Anion Gap 8 (5-15); BUN 14 mg/dL (7-18); BUN/Creat Ratio 16.8 RATIO (10-20); Calcium,Total 9.4 mg/dL (8.5-10.1); Chloride 103 mmol/L (98-107); Creatinine, Serum 0.83 mg/dL (0.55-1.02); EST Glomerular Filtration Rate 82 mL/min (>60); Est Glom Filt Rate - Afr Amer 100 mL/min (>60); Glucose 99 mg/dL (74-106); Potassium 3.7 mmol/L (3.5-5.1); Sodium Level 139 mmol/L (136-145)
== END | disposition home or self-care (01) ==
LOC: BIMLAB 10:16
PROVIDERS: PCP Internal Medicine; Visit Provider Internal Medicine
DX: I10 Essential (primary) hypertension (principal)
CPT/HCPCS: 36415; 80048

== ENCOUNTER → 2023-08-17 | Outpatient (CLI) | payer BC, SELFPAY ==
--- NOTE | 2023-08-17 17:16 | US_ITS ---
INDICATION: Enlarged thyroid EXAMINATION: Ultrasound US Thyroid (eg thyroid, parathyroid, parotid) TECHNIQUE: Oconnell scale and color doppler imaging was performed of the thyroid gland. COMPARISON: FINDINGS: RIGHT THYROID LOBE: 5.4 x 1.3 x 1.3 cm. Mildly heterogeneous echotexture with normal vascularity. [There is a mid thyroid 4 mm cyst. LEFT THYROID LOBE: 4.4 x 1.4 x 1.2 cm. Mildly heterogeneous echotexture with normal vascularity. [No thyroid nodules are present. ISTHMUS: 1.6 mm. No thyroid nodules are present. US/Thyroid IMPRESSION: Right mid thyroid cyst. Electronically Signed: Roberto Gould DO at 16:09 EST Reading Location ID and State: [facility] / [place] Tel [phone], Service support ,
[2023-08-17 17:51] LABS: T4 Free Direct 0.76 ng/dL (0.76-1.46); Thyroid Stim Hormone (TSH) 4.19 uIU/mL (0.358-3.74)
== END | disposition home or self-care (01) ==
LOC: US 17:14
PROVIDERS: PCP Internal Medicine; Referring Provider Obstetrics & Gynecology; Visit Provider Obstetrics & Gynecology
DX: Z13.29 Encounter for screening for other suspected endocrine disorder (principal); E01.0 Iodine-deficiency related diffuse (endemic) goiter
CPT/HCPCS: 36415; 76536; 84439; 84443

== ENCOUNTER → 2023-10-05 | Outpatient (CLI) | payer BC, SELFPAY ==
--- OUTSIDE RECORDS SUMMARY | 2023-10-05 08:33 | XMS RPT_ITS | CCD ---
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 (1 source) Propensity to adverse reactions to drug 2 [facility] Medications Current Medications Medication Drug Class(es) Dates Sig (Normalized) Sig (Original) DULoxetine 30 mg delayed release oral capsule (1 source) Serotonin and Norepinephrine Reuptake Inhibitor Start: 10-30-19 546392 Medication duloxetine 30 mg capsule,delayed release duloxetine 30 mg capsule,delayed release 30 mg 10/29/2021 Active (Outside) hydroCHLOROthiazide 25 mg oral tablet (1 source) Thiazide Diuretic Start: 10-30-19 671764 Medication hydrochlorothiazide 25 mg tablet hydrochlorothiazide 25 mg tablet 25 mg 10/29/2021 Active (Outside) Problems Problem Classification Problem Date Documented Da te Episodic/Chronic Neoplasms of unspecified nature or uncertain behavior (2 sources) Neoplasm of uncertain behavior of skin Onset: 02-02-2022 Episodic Results Test Name Value Interpretation Reference Range Facil ity Vital Signs Date Time Vital Sign Value Performing Clinician Faci lity 1985 00:00-0400 >na< Emily Domínguez [facility] Encounters Encounter Date Encounter Type Care Provider Facility Start: 02-02-2022 Office outpatient ne w 20 minutes Emily Domínguez [facility] Start: 02-02-2022 Office outpatient vi sit 15 minutes Emily Domínguez [facility] Start: 10-15-2021 End: 10-15-2021 [facility] Procedures Date Procedure Procedure Detail Performing Clinician Start: 02-02-2022 Shvg skin lesion 1 trunk/arm/leg diam 0.6-1.0 cm Emily Domínguez Immunizations Immunization Date Immunization Notes Care Provider Fa weslyty 1985 pneumococcal conjuga te vaccine, 7 valent Emily Domínguez [facility] Payers Date Payer Category Payer Unknown [id number] 1985 Unknown [id number] Social History Date Type Detail Facility Start: 02-02-2022 Sex [facility] Start: 1985 Sex Assigned At Female [facility] Goals Date Patient Goal Desired Activity /State Evaluation note Note Date & Type Note Facility Evaluation note N/A [facility] Reason for referral (narrative) Note Date & Type Note Facility [facility] Summary Purpose Family History No Family History Records FoundNo Family History Records Found Advance Directives No Advanced Directives Records FoundNo Advanced Directives Records Found Additional Source Comments INFORMATION SOURCE (unrecogn ized section and content) DATE CREATED AUTHOR AUTHOR'S ORGANIZ ATION 02/10/2022 [facility] FOR RECORDS PERTAINING TO PATIENTS WHO ARE OR HAVE BEEN ENROLLED IN A CHEMICAL DEPENDENCY/SUBSTANCEABUSE PROGRAM, SOME INFORMATION MAY BE OMITTED. This clinical summary was aggregated from multiple sources. Caution should be exercised in using it in the provision of clinical care. This summary normalizes information from multiple sources, and as a consequence, information in this document may materially change the coding, format and clinical context of patient data. In addition, data may be omitted in some cases. CLINICAL DECISIONS SHOULD BE BASED ON THE PRIMARY CLINICAL RECORDS. [facility]. provides no warranty or guarantee of the accuracy or completeness of information in this document.
[2023-10-05 09:14] LABS: Thyroid Stim Hormone (TSH) 2.45 uIU/mL (0.358-3.74)
[2023-10-06 04:07] LABS: Thyroid Peroxidase AB 11 IU/mL (0-34)
== END | disposition home or self-care (01) ==
LOC: PAVLAB 08:16
PROVIDERS: PCP Internal Medicine; Referring Provider Obstetrics & Gynecology; Visit Provider Obstetrics & Gynecology
DX: E01.0 Iodine-deficiency related diffuse (endemic) goiter (principal)
CPT/HCPCS: 36415; 84443; 86376

== ENCOUNTER → 2023-10-19 | Outpatient (CLI) | payer BC, SELFPAY ==
[2023-10-19 10:05] LABS: Hemoglobin A1c 5.2 % (3.8-5.6)
--- OUTSIDE RECORDS SUMMARY | 2023-10-19 10:11 | XMS RPT_ITS | CCD ---
Author Name Unknown Address [address] [place] [address] Organization [facility] Care Team Providers Care Cork Cutter Name Role Phone LON NAQVI Primary Care [...] Serotonin and Norepinephrine Reuptake Inhibitor Start: 10-30-19 [id number] Medication duloxetine 30 mg capsule,delayed release duloxetine 30 mg capsule,delayed release 30 mg 10/29/2021 Active (Outside) hydroCHLOROthiazide 25 mg oral tablet (1 source) Thiazide Diuretic Start: 10-30-19 [id number] Medication hydrochlorothiazide 25 mg tablet hydrochlorothiazide 25 [...] End: 10-15-2021 [facility] Date Procedure Procedure Detail Performing Clinician Start: 02-02-2022 Shvg skin lesion 1 trunk/arm/leg diam 0.6-1.0 cm Emily Domínguez Immunizations Immunization Date Immunization Notes Care Provider Fa weslyty 1985 pneumococcal conjuga te vaccine, 7 valent Emily Domínguez [facility] Payers Date Payer Category Payer Unknown [id number] 1985 Unknown [id number] Social History Date Type Detail Facility Start: [...] DATE CREATED AUTHOR AUTHOR'S ORGANIZ ATION 02/10/2022 [facility] [place] FOR RECORDS PERTAINING TO PATIENTS WHO ARE [...] BE BASED ON THE PRIMARY CLINICAL RECORDS. [facility]. provides no warranty or guarantee of the accuracy or completeness of information in this document.
[2023-10-19 10:18] LABS: Vitamin D,25 Hydroxy 16.1 ng/mL
[2023-10-19 10:24] LABS: Cholesterol 190 mg/dL (200); High Density Lipoprotein 42 mg/dL; Triglycerides 205 mg/dL; Very Low Density Lipoprotein 41 mg/dL (5-40)
== END | disposition home or self-care (01) ==
LOC: PAVLAB 09:28
PROVIDERS: PCP Internal Medicine; Referring Provider Obstetrics & Gynecology; Visit Provider Obstetrics & Gynecology
DX: E66.9 Obesity, unspecified (principal)
CPT/HCPCS: 36415; 80061; 82306; 83036

== ENCOUNTER → 2024-03-08 | Outpatient (CLI) | payer BC, SELFPAY ==
[2024-03-08 16:53] LABS: Absolute Lymphocyte Count 3.58 X10^3/uL (0.83-4.51); Absolute Neutrophil Count 4.6 X10^3/uL (2.0-7.7); Basophil# 0.05 X10^3/uL; Basophil% 0.6 % (0-1); Eosinophil# 0.14 X10^3/uL; Eosinophils% 1.6 % (0-5); Hematocrit 46.4 % (37-47); Hemoglobin 15.5 g/dL (12.0-15.0); Lymphocyte # 3.58 X10^3/ul (0.83-4.51); Lymphocyte % 40.8 % (19-41); Mean Corp Hgb Conc 33.4 g/dL (32-36); Mean Corpuscular Hgb 27.7 pg (27.0-32.0); Mean Corpuscular Volume 82.9 fL (81-99); Mean Platelet Vol. 9.3 fl (6.2-12.0); Monocyte# 0.38 X10^3/uL; Monocyte% 4.3 % (0-10); NRBC Flagged by Analyzer 0 % (0-5); Neutrophil % 52.5 % (47-70); Platelet Count 282 K/mm3 (150-450); RBC Distribution Width CV 14.5 % (11.6-14.6); RBC Distribution Width SD 43.4 fl (35.1-43.9); White Blood Count 8.8 K/mm3 (4.4-11.0)
[2024-03-08 17:15] LABS: AST(SGOT) 16 U/L (15-37); Alanine Aminotransfer ALT/SGPT 30 U/L (13-56); Albumin, Serum 3.9 g/dL (3.2-5.0); Alkaline Phosphatase 99 U/L (45-117); Anion Gap 8 (5-15); BUN 13 mg/dL (7-18); BUN/Creat Ratio 15.5 RATIO (10-20); Calcium,Total 9.4 mg/dL (8.5-10.1); Chloride 103 mmol/L (98-107); Cholesterol 152 mg/dL (200); Creatinine, Serum 0.84 mg/dL (0.55-1.02); EST Glomerular Filtration Rate 81 mL/min (>60); Est Glom Filt Rate - Afr Amer 98 mL/min (>60); Globulin 4.1 g/dL (2.2-4.2); Glucose 104 mg/dL (74-106); High Density Lipoprotein 39 mg/dL; Potassium 3.4 mmol/L (3.5-5.1); Sodium Level 136 mmol/L (136-145); Triglycerides 195 mg/dL; Very Low Density Lipoprotein 39 mg/dL (5-40)
== END | disposition home or self-care (01) ==
LOC: BIMLAB 14:45
PROVIDERS: PCP Internal Medicine; Referring Provider Internal Medicine; Visit Provider Internal Medicine
DX: I10 Essential (primary) hypertension (principal)
CPT/HCPCS: 36415; 80053; 80061; 85025

== ENCOUNTER → 2024-06-28 | Outpatient (CLI) | payer BC, SELFPAY | END | disposition home or self-care (01) | LOC: LABSPEC 16:38 | PROVIDERS: Referring Provider Obstetrics & Gynecology; Visit Provider Obstetrics & Gynecology | DX: R10.9 Unspecified abdominal pain (principal) | CPT/HCPCS: 87086 ==

== ENCOUNTER → 2024-07-03 | Outpatient (CLI) | payer BC, SELFPAY ==
--- NOTE | 2024-07-03 09:46 | CT_ITS ---
STUDY: CT ABDOMEN AND PELVIS WITHOUT CONTRAST REASON FOR EXAM: Female, 39 years old. R FLANK PAIN/GROSS HEMATURIA/HX STONE RADIATION DOSAGE (If Supplied By Facility): CTDIvol = ( 11.69 ) mGy, DLP = ( 581.75 ) mGycm TECHNIQUE: Transaxial images were obtained from the dome of the diaphragm to the symphysis pubis without oral contrast, and without intravenous contrast. Sagittal and coronal images were reconstructed. Individualized dose optimization techniques were used for this CT. COMPARISON: Comparison is made with prior examination dated January 28, 2023. FINDINGS: The visualized lung bases are unremarkable. The visualized portions of the heart are within normal limits. There is decreased attenuation of the liver consistent with steatosis. There are surgical clips in the gallbladder fossa consistent with a prior cholecystectomy. Normal spleen. Normal pancreas. Normal bilateral adrenal glands. Tiny nonobstructive calculus in the lower pole calyx of the right kidney. There is a 4.4 mm calculus in the lower midpole portion of the right kidney. There is evidence of a mild degree of right hydronephrosis and right hydroureter. This is due to a 3.8 mm calculus at the right ureterovesical junction. 2 mm nonobstructive calculus in the upper pole calyx of the left kidney. There are 2 adjacent 3 mm nonobstructive calculi in the lower pole calyx of the left kidney. There is a small hiatal hernia. Normal small intestine. Normal colon. The appendix is visualized and appears normal. Normal abdominal aorta. Normal inferior vena cava. Normal retroperitoneum. Normal urinary bladder. There is a 5.9 cm x 6 cm cystic mass in the right adnexa. There is a small umbilical hernia containing fat. This space narrowing in the spondylosis at the L2-L3 level. CT/Abdomen/Pelvis without Cont IMPRESSION: 3.8 mm cancellous and the right ureterovesical junction causing mild right hydronephrosis and right hydroureter. Bilateral nonobstructive intrarenal calculi. 5.9 cm x 6 cm cystic mass in the right adnexa. Electronically Signed: Gee Lawson MD at 11:16 EST ,
== END | disposition home or self-care (01) ==
LOC: CT 09:44
PROVIDERS: PCP Internal Medicine; Referring Provider Urology; Visit Provider Urology
DX: R10.9 Unspecified abdominal pain (principal); R31.0 Gross hematuria; Z87.442 Personal history of urinary calculi
CPT/HCPCS: 74176

== ENCOUNTER → 2024-07-09 | Outpatient (CLI) | payer BC, SELFPAY | END | disposition home or self-care (01) | PROVIDERS: PCP Internal Medicine; Referring Provider Urology; Visit Provider Urology | DX: N83.209 Unspecified ovarian cyst, unspecified side (principal) | CPT/HCPCS: 76856 ==

== ENCOUNTER → 2024-08-02 | Outpatient (CLI) | payer BC, SELFPAY ==
--- NOTE | 2024-08-02 09:07 | RAD_ITS ---
EXAM: XR ABDOMEN, 1 VIEW CLINICAL INDICATION: KUB- KIDNEY STONE TECHNIQUE: Frontal supine view of the abdomen/pelvis. COMPARISON: 03/31/2023 FINDINGS: LOWER THORAX: No acute pathology. GASTROINTESTINAL TRACT: Unremarkable. Non-obstructive. No bowel or stomach distention. ORGANS: There are surgical clips from cholecystectomy. No organomegaly. No abnormal calcifications. BONES/JOINTS: No acute pathology. SOFT TISSUES: No acute pathology. RAD/Abdomen Single View IMPRESSION: No acute findings. Electronically Signed: Toro Tobin MD at 23:43 EST ,
== END | disposition home or self-care (01) ==
LOC: MTRAD 08:58
PROVIDERS: PCP Internal Medicine; Referring Provider Urology; Visit Provider Urology
DX: N20.0 Calculus of kidney (principal)
CPT/HCPCS: 74018

== ENCOUNTER 2024-08-07 11:07 | Outpatient (CLI) | payer BC, SELFPAY ==
[2024-08-07 11:21] VITALS: BP 116/74; PULSE 63; RESP 16; TEMP 36.1; O2SAT 100; BMI 29.8
[2024-08-07] MEDS: 0.9% NaCl Peripheral Flush Adult/Peds IV ×2 (11:24→11:37)
[2024-08-07] MEDS: 0.9% NaCl IVPB Med Flush (250 mL) 15 ML IV (11:37)
[2024-08-07] MEDS: Ustekinumab 390 MG in 0.9% Normal Saline (250mL Bag) 172 ML 250 MG IV (11:37)
[2024-08-07 13:00] VITALS: BP 132/72; PULSE 79; RESP 16; TEMP 36.4; O2SAT 99
== END 2024-08-07 23:59 | disposition home or self-care (01) ==
LOC: MEDOUTP 11:07
PROVIDERS: PCP Internal Medicine; Referring Provider Internal Medicine Gastroenterology; Visit Provider Internal Medicine Gastroenterology
DX: K50.90 Crohn's disease, unspecified, without complications (principal)
CPT/HCPCS: 96365; A4216; J3358

== ENCOUNTER → 2024-08-13 | Outpatient (CLI) | payer BC, SELFPAY ==
--- NOTE | 2024-08-13 08:49 | US_ITS ---
INDICATION: ovarian cyst follow-up EXAMINATION: Ultrasound US Pelvis Non OB Complete With Transvaginal Imaging TECHNIQUE: Transabdominal and transvaginal pelvic ultrasound was performed. Grayscale, spectral waveform, and color flow Doppler evaluation of the adnexa. COMPARISON: July 09, 2024 FINDINGS: UTERUS: Status post hysterectomy RIGHT OVARY: 3.4 x 1.8 x 2.7 cm. Follicles are noted. The previously noted complex lesion of the right ovary is no longer seen. LEFT OVARY: 4.6 x 3.2 x 2.5 cm. There is a 2.5 x 2.1 x 1.8 cm complex cystic nodule. FREE FLUID: None. Incompletely distended urinary bladder with a volume of 38 cc. US/Pelvic w/ Transvaginal IMPRESSION: Status post hysterectomy. Complex left ovarian cystic lesion. Electronically Signed: Roberto Gould DO at 16:20 EST ,
== END | disposition home or self-care (01) ==
LOC: US 08:47
PROVIDERS: PCP Internal Medicine; Referring Provider Obstetrics & Gynecology; Visit Provider Obstetrics & Gynecology
DX: N83.292 Other ovarian cyst, left side (principal)
CPT/HCPCS: 76830; 76856

== ENCOUNTER → 2024-08-26 | Outpatient (CLI) | payer BC, SELFPAY | END | disposition home or self-care (01) | LOC: LABSPEC 11:29 | PROVIDERS: PCP Internal Medicine; Referring Provider Nurse Practitioner Family; Visit Provider Nurse Practitioner Family | DX: N89.8 Other specified noninflammatory disorders of vagina (principal) | CPT/HCPCS: 87070; 87205 ==

== ENCOUNTER → 2024-09-09 | Outpatient (CLI) | payer BC, SELFPAY ==
[2024-09-09 12:16] LABS: Absolute Lymphocyte Count 3.77 X10^3/uL (0.83-4.51); Absolute Neutrophil Count 3.8 X10^3/uL (2.0-7.7); Basophil# 0.04 X10^3/uL; Basophil% 0.5 % (0-1); Eosinophil# 0.12 X10^3/uL; Eosinophils% 1.5 % (0-5); Hematocrit 46.8 % (37-47); Hemoglobin 15.8 g/dL (12.0-15.0); Lymphocyte # 3.77 X10^3/ul (0.83-4.51); Lymphocyte % 45.6 % (19-41); Mean Corp Hgb Conc 33.8 g/dL (32-36); Mean Platelet Vol. 10.5 fl (6.2-12.0); Monocyte# 0.55 X10^3/uL; Monocyte% 6.7 % (0-10); NRBC Flagged by Analyzer 0 % (0-5); Neutrophil # 3.76 X10^3/uL (2.7-7.7); Neutrophil % 45.5 % (47-70); Platelet Count 292 K/mm3 (150-450); RBC Distribution Width CV 13.4 % (11.6-14.6); RBC Distribution Width SD 40.2 fl (35.1-43.9); Red Blood Count 5.64 M/mm3 (4.2-5.4); White Blood Count 8.3 K/mm3 (4.4-11.0)
[2024-09-09 12:48] LABS: ALB/GLOB Ratio 1.1 RATIO (0.9-2.4); AST(SGOT) 19 U/L (15-37); Alanine Aminotransfer ALT/SGPT 29 U/L (13-56); Alkaline Phosphatase 84 U/L (45-117); Anion Gap 6 (5-15); BUN 15 mg/dL (7-18); BUN/Creat Ratio 18.2 RATIO (10-20); Calcium,Total 9.6 mg/dL (8.5-10.1); Chloride 105 mmol/L (98-107); Creatinine, Serum 0.82 mg/dL (0.55-1.02); EST Glomerular Filtration Rate 83 mL/min (>60); Est Glom Filt Rate - Afr Amer 100 mL/min (>60); Globulin 3.8 g/dL (2.2-4.2); Glucose 82 mg/dL (74-106); Potassium 3.2 mmol/L (3.5-5.1); Protein, Total 7.8 g/dL (6.4-8.2); Sodium Level 140 mmol/L (136-145)
== END | disposition home or self-care (01) ==
LOC: BIMLAB 10:04
PROVIDERS: PCP Internal Medicine; Referring Provider Internal Medicine; Visit Provider Internal Medicine
DX: I10 Essential (primary) hypertension (principal)
CPT/HCPCS: 36415; 80053; 85025

== ENCOUNTER → 2024-09-25 | Outpatient (CLI) | payer BC, SELFPAY ==
--- NOTE | 2024-09-25 17:53 | US_ITS ---
PROCEDURE: PELVIC W/ TRANSVAGINAL REASON FOR EXAM: Follow-up for left ovarian cyst. TECHNIQUE: Transabdominal and transvaginal pelvic ultrasound COMPARISON: Comparison is made with prior study dated August 13, 2024. FINDINGS: Measurements: The patient is status post hysterectomy. Right Ovary: 4 cm x 3.3 cm x 2.8 cm. There is a 2.7 cm x 2.4 cm x 1.6 cm complex cyst in the right ovary. Left Ovary: 3.2 cm x 2.4 cm x 2.1 cm. TRANSABDOMINAL: Status post hysterectomy. Right ovary: 2.7 cm x 2.4 cm x 1.6 cm complex right ovarian cyst. Left ovary: 3.2 cm x 2.4 cm x 2.1 cm Transvaginal sonography was performed to further characterize the ovarian findings. TRANSVAGINAL: Status post hysterectomy. Right ovary: 2.7 cm x 2.4 cm x 1.6 cm complex cyst in the right ovary. Left ovary: Normal size and echotexture. Other adnexal findings: None. Cul-de-sac: No free intraperitoneal fluid identified. No tenderness. US/Pelvic w/ Transvaginal IMPRESSION: 2.7 cm x 2.4 cm x 1.6 cm complex cyst in the right ovary.. Reading Location: [place] [address]
== END | disposition home or self-care (01) ==
LOC: US 17:52
PROVIDERS: PCP Internal Medicine; Referring Provider Obstetrics & Gynecology; Visit Provider Obstetrics & Gynecology
DX: N83.202 Unspecified ovarian cyst, left side (principal); N83.201 Unspecified ovarian cyst, right side
CPT/HCPCS: 76830; 76856

== ENCOUNTER → 2025-03-11 | Outpatient (CLI) | payer BC, SELFPAY | END | disposition home or self-care (01) | LOC: LAB 16:37 | PROVIDERS: PCP Internal Medicine; Referring Provider Internal Medicine Gastroenterology; Visit Provider Internal Medicine Gastroenterology | DX: K50.913 Crohn's disease, unspecified, with fistula (principal) | CPT/HCPCS: 36415 ==

== ENCOUNTER 2025-07-23 09:19 | Day surgery (SDC) | payer BC, SELFPAY ==
[2025-07-23] VITALS (17 sets, daily range): BP systolic 92–118; BP diastolic 59–77; PULSE 65–84; RESP 16; TEMP 36.2–36.3; O2SAT 93–100; BMI 25.3
[2025-07-23] MEDS: Lactated Ringers 1,000 ML 15 ML IV (09:55)
[2025-07-23] MEDS: Lactated Ringers 500 ML IV (10:05)
--- NOTE | 2025-07-23 10:05 | PRE.ANES_ITS ---
ASA Classification* ASA Classification ASA Classification: 2 (Crohns disease, on wegovy, PONV) Assessment & Plan Anesthesia* Anesthesia Assessment Anesthesia Assessment: Discussed sedation and/or anesthesia options, risks, benefits, and alternatives with patient/parents/legal guardian/POA. Questions invited. The patient/parents/legal guardian/POA seems to understand and agrees to proceed with anesthesia plan. Reviewed the physical assessment, medical history, allergy history and patient home medications list prior to surgery/procedure/anesthetic and documented any changes. Performed airway and anesthesia risk assessments. Anesthesia Type Anesthesia Type: General History Source History Obtained from:: Patient and Chart Anesthesia Focused Assessment* Temperature: 97.4 F Pulse Rate: 78 Blood Pressure: 114/77 Respiratory Rate: 16 Pulse Ox: 100 Oxygen Delivery Method: Room Air Airway Assessment Mouth opens: >3 cm Mallampati Score: II Teeth Condition: Intact Neck Range of motion (ROM): Full ROM Labs Anesthesia Preop lab: CBC WBC, (4.4-11.0) 8.3 K/mm3 09/09/24, 10:04 RBC, (4.2-5.4) 5.64 M/mm3 H 09/09/24, 10:04 Hgb, (12.0-15.0) 15.8 g/dL H 09/09/24, 10:04 Hct, (37-47) 46.8 % 09/09/24, 10:04 Plt Count, (150-450) 292 K/mm3 09/09/24, 10:04 CHEMISTRY Potassium, (3.5-5.1) 3.2 mmol/L L 09/09/24, 10:04 Sodium, (136-145) 140 mmol/L 09/09/24, 10:04 Magnesium, (1.6-2.6) 2.2 mg/dL 07/20/22, 11:15 BUN, (7-18) 15 mg/dL 09/09/24, 10:04 Creatinine, (0.55-1.02) 0.82 mg/dL 09/09/24, 10:04 Glucose, (74-106) 82 mg/dL 09/09/24, 10:04 POC Glucose, (74-106) 95 mg/dL 08/04/22, 05:07 TSH, (0.358-3.74) 2.45 uIU/mL 10/05/23, 08:18 COAG HCG, Quant, (<9 non-preg) 1724 mIU/mL H 10/22/18, 11:3 8 Urine Test Negative Negative 04/20/23, 09:30 Pre-Assessment Diagnosis/Proposed Procedure Planned Operative Procedure(s): (N/A) Laparoscopic, Ventral/Umb Hernia Rep w/mesh Anesthesia History Anesthesia History - finisher card tender: Anesthesia History - finisher card tender Hx Hospitalization No 07/09/25 09:01 Any Problems With Anesthesia No 07/09/25 09:01 Cholinesterase deficiency No 07/09/25 09:01 You/Your Family Experience No 07/09/25 09:01 fever (hyperthermia) with Relationship Recent Exposure to Contagious No 07/23/25 09:38 Disease Does patient have nerve No 07/09/25 09:01 stimulator Patient instructed to have device shut off --Does patient have Pacemaker No 07/23/25 09:38 or ICD? When Was Last Pacemaker Check QUESTION #4 FULL TEXT: You/Your Family Experience fever (hyperthermia) with Anesthesia Last Oral Intake Last Oral intake: Last Oral Intake NPO since 21:00 07/23/25 09:38 Meds taken in AM with sips of Yes 07/23/25 09:38 water? Meds patient instructed to 0730 07/23/25 09:38 take am of surgery duloxetine PONV PONV - finisher card tender: PONV - finisher card tender Female Yes 07/09/25 09:01 HX of Motion Sickness No 07/09/25 09:01 HX of N/V After Surgery Yes 07/09/25 09:01 Non-Smoker Yes 07/09/25 09:01 Duration of Surgery greater Yes 07/09/25 09:01 than 60 minutes Number of Risk Factors 4 07/09/25 09:01 PONV Score Severe Risk 07/09/25 09:01 Height & Weight Height & Weight: Anesthesia: Height & Weight Height 5 ft 4 in 07/23/25 09:38 Weight: 67 kg 07/23/25 09:38 Body Mass Index (BMI) 25.3 07/23/25 09:38 Respiratory Assessment Respiratory Assessment - finisher card tender: Respiratory Tract Infection Hx - finisher card tender Hx Respiratory Tract Infection No 07/09/25 09:01 STOP Sleep Apnea STOP Sleep Apnea - finisher card tender: STOP Sleep Apnea - finisher card tender Hx Hypertension Yes 07/09/25 09:01 Hx Sleep Apnea No 07/09/25 09:01 CPAP No 07/09/25 09:01 BIPAP Do you snore loudly (louder No 07/09/25 09:01 than talking or can be heard Do you often feel tired/ No 07/09/25 09:01 fatigued/ sleepy during daytime? Has anyone observed you stop No 07/09/25 09:01 breathing during sleep? STOP Results Negative 07/09/25 09:01 QUESTION #5 FULL TEXT : Do you snore loudly (louder than talking or can be heard through closed doors)? Tobacco Use History Tobacco Use History - finisher card tender: Tobacco Use History - finisher card tender Tobacco Use Smoking Status Never smoker 07/09/25 09:01 Hx Tobacco Use No 07/09/25 09:01 Years Smoking Packs Smoked per Day Smoking Cessation Date was within the last 15 years Hx Smoking Cessation Date Hx Smoking Cessation Counseling Hematologic Medial History Hematologic Hx - finisher card tender: Hematologic Medical Hx - director of epidemiology Hx of Blood Transfusion No 07/09/25 09:01 Hx of Transfusion in last 3 No 07/09/25 09:01 Months Date of Last Transfusion (if within last 3 months) Ever experience any problems No 07/09/25 09:01 with transfusion(s)? Specify any problems Hx of Preganancy in last 3 N/A 07/09/25 09:01 Months Nurse Filling Out Transfusion NBUCHER 07/09/25 09:01 & Questions: Date: 07/09/25 07/09/25 09:01 Time: 09:02 07/09/25 09:01 Patient unable to answer at this time (ie. confused, unrespo /Reproduction History /Reproductive History - finisher card tender: /Reproductive Hx- finisher card tender Hx Now No 07/09/25 09:01 Gestational Age (in weeks): EDC: Hx Hx Para Hx Section SAB No 07/09/25 09:01 Does the father of the baby or his family experience fever w Father of the baby Malignant Hypertension history comment Active Medications Active Medications: Current Medications Generic Name Dose Route Start Last Admin Trade Name Freq PRN Reason Stop Dose Admin Lactated Ringer's 1,000 mls @ 15 mls/hr 07/23/25 09:30 07/23/25 09:55 IV 15 mls/hr .Q48H RADHA Administration PFSH Medical History (Updated 07/09/25 @ 09:05 by Emily Schwarz) Wears glasses PONV (postoperative nausea and vomiting) Raynauds phenomenon Hypokalemia Light headedness Metabolic syndrome Flu vaccine need Obesity (BMI 30-39.9) Right renal stone Hematuria Fistula Depression Low iron Migraine headache Heartburn Non-smoker Hypertension Endometriosis Posterior right knee pain Right knee pain Hypertension Acute sinusitis, unspecified Abnormal ultrasound of breast Blocked lacrimal duct Crohn's disease Thyromegaly Iron deficiency anemia during Anxiety Abnormal Pap smear of cervix Crohns disease Home Medications ?Medication ?Instructions ?Recorded ?Last Taken ?Type sumatriptan succinate 25 mg tablet 25 mg PO PRN PRN CO GRAINES #14 tabs 03/08/24 Unknown Rx trazodone 100 mg tablet 50 mg (1/2 x 100 mg) PO QHS PRN 03/08/24 Unknown Rx insomnia #90 tabs duloxetine 30 mg capsule,delayed 30 mg PO BID #180 cap s 05/23/25 Unknown Rx release semaglutide (weight loss) 2.4 2.4 mg subcut MO 5 Unknown History mg/0.75 mL subcutaneous pen injector ustekinumab 90 mg/mL subcutaneous 90 mg subcut .q8w Unknown History syringe (Stelara) Allergy/AdvReac Type Severity Reaction Status Date / Time guaifenesin (From Mucinex) Allergy Mild chest pain Verified 07/09/25 08:59 hydrocodone Allergy Rash Verified 07/09/25 08:59 Sulfa (Sulfonamide Allergy Rash Verified 07/09/25 08:59 Antibiotics) Family History Grandmother Bladder cancer Diabetes CAD (coronary artery disease) Leukemia Grandfather Heart disease CAD (coronary artery disease) Mother Depression with anxiety Father Hypothyroidism Hypertension Kidney stones Depression with anxiety Surgical History History of cystoscopy Hx of total hysterectomy History of total abdominal hysterectomy Status post hysterectomy H/O tooth extraction History of tonsillectomy H/O lithotripsy History of esophagogastroduodenoscopy (EGD) H/O colonoscopy S/P cholecystectomy S/P bunionectomy H/O colposcopy with cervical biopsy Social History number of children: 2 Smoking Status: Never smoker alcohol intake: current details: social substance use type: does not use caffeine: Yes what type of physical activity do you participate in: walking frequency: 5-6 times per week seatbelt use: always do you feel safe at home: Yes additional social history: JESENIA- SINDY Review of Systems (Anesthesia) ROS Narrative System reviewed and no additional complaints, except as documented. Physical Exam Const alert, oriented x3 and average body habitus Resp normal respiratory effort, normal air movement and clear to auscultation bilaterally Cardio regular rate, regular rhythm and no murmurs; Negative for diaphoretic
--- NOTE | 2025-07-23 10:20 | PCM.HP.BLA ---
History and Physical Date of Admission: 07/23/25 Intake Vital Signs 03/10/2509:41 05/30/2513:13 Height 5 ft 4 in 5 ft 4 in Weight: 154 lb BMI 26.4 BP 128/84 H Blood Pressure Location Rt brachial Position Sitting Respiration 17 Pulse 97 Pulse Source Monitor Pulse Oximetry (%) 98 Oxygen Delivery Method room air Intake Visit Reasons: Hernia Chief Complaint: hernia Is patient in pain?: No Allergies guaifenesin (From Mucinex) Allergy (Mild, Verified 05/30/25 13:14) chest pain hydrocodone Allergy (Verified 05/30/25 13:14) Rash Sulfa (Sulfonamide Antibiotics) Allergy (Verified 05/30/25 13:14) Rash Medications ?Medication ?Instructions ?Recorded ?Confirmed ?Type sumatriptan succinate 25 mg tablet 25 mg PO PRN PRN MIGRAINES #14 tabs 03/08/24 05/30/25 Rx trazodone 100 mg tablet 50 mg (1/2 x 100 mg) PO QHS PRN 03/08/24 05/30/25 Rx insomnia #90 tabs semaglutide (weight loss) 2.4 2.4 mg (0.75 mL) subcut QWEEK 3 01/03/25 05/30/25 Rx mg/0.75 mL subcutaneous pen months #9.75 mL injector duloxetine 30 mg capsule,delayed 30 mg PO BID #180 caps 05/23/25 05/30/25 Rx release PFSH Medical History Raynauds phenomenon Hypokalemia Light headedness Endometriosis Obesity (BMI 30-39.9) Metabolic syndrome Flu vaccine need Right renal stone Hematuria Fistula Depression Low iron Migraine headache Heartburn Non-smoker Hypertension Posterior right knee pain Right knee pain Hypertension Acute sinusitis, unspecified Abnormal ultrasound of breast Blocked lacrimal duct Crohn's disease Thyromegaly Iron deficiency anemia during Anxiety Abnormal Pap smear of cervix Crohns disease Surgical History History of cystoscopy Hx of total hysterectomy History of total abdominal hysterectomy Status post hysterectomy H/O tooth extraction History of tonsillectomy H/O lithotripsy History of esophagogastroduodenoscopy (EGD) H/O colonoscopy S/P cholecystectomy S/P bunionectomy H/O colposcopy with cervical biopsy Family History Grandmother Bladder cancer Diabetes CAD (coronary artery disease) Leukemia Grandfather Heart disease CAD (coronary artery disease) Mother Depression with anxiety Father Hypothyroidism Hypertension Kidney stones Depression with anxiety Social History number of children: 2 Smoking Status: Never smoker alcohol intake: current details: social substance use type: does not use caffeine: Yes what type of physical activity do you participate in: walking frequency: 5-6 times per week seatbelt use: always do you feel safe at home: Yes additional social history: [facility]- [facility] HPI HPI HPI: Patient is a 40-year-old female here with a ventral incisional hernia. The patient had a CT scan recently that showed an incision in the infraumbilical area with hernia containing bowel. Patient notes that she feels a tightness when she goes to the gym and it feels like it is pulling. She does not note any bulging. ROS General General: Yes fatigue; No weight change, appetite, colon cancer, breast cancer or weakness HEENT HEENT: No difficulty swallowing, eye injury, eye surgery, swollen glands or hoarseness Endo Endocrine: No thyroid disease, diabetes mellitus, thyroid cancer, Hair loss, heat intolerance or cold intolerance Skin Skin: No rash or changing moles Musc Musculoskeletal: No back problems, arthritis, rheumatoid arthritis, gout or joint pain Cardio Cardiovascular: No murmur, pacemaker, heart disease, atrial fibrillation, high blood pressure, heart attack, heart stent, palpitations, shortness of breath with exertion or chest pain Psych Psychiatric: No depression, anxiety or hearing voices Resp Respiratory: No shortness of breath, No sleep apnea, No cough, No COPD, No asthma, No emphysema and No wheezing Gastro Gastrointestinal: Yes abdominal pain, No nausea or vomiting, Yes diarrhea, No constipation, No blood in stool, No acid reflux, No hemorrhoids, No ulcers, No gallbladder problem and No black,tarry stools David Hematologic: No blood thinners, No blood disorders, No bleeding, No anemia and No blood clots Neuro Neurologic: No system reviewed and no additional complaints, except as documented, No as per HPI, No abnormal gait, No abnormal hearing, No abnormal movements, No abnormal speech, No behavioral changes, No burning sensations, No confusion, No convulsions, No disequilibrium, No dizziness, No localized weakness, No frequent falls, No headache(s), No lack of coordination, No loss of vision, No memory loss, No numbness, No other visual disturbances, No radicular pain, No restless legs, No sensory deficit, No syncope, No tingling, No tremor(s), No weakness and No other Exam Const General: cooperative Orientation: alert and oriented x3 HENOH Head: normal to inspection Neck Neck: normal visual inspection and full ROM Chest Chest palpation & inspection: normal inspection of the chest Resp Effort & Inspection: normal respiratory effort Auscultation: clear to auscultation bilaterally Cardio Rate: regular rate Rhythm: regular rhythm GI Inspection: non-distended Palpation: soft and nontender Skin General: no rashes or lesions noted Neuro General: patient alert and patient oriented x3 Extrem General: full ROM Psych Appearance: grossly normal Mental Status: mental status grossly normal Assessment and Plan Assessment and Plan (1) Ventral incisional hernia: Status: Acute Plan: The patient has a ventral incisional hernia that is likely just the posterior sheath. Palpating the area I was unable to feel an anterior defect. She had a CT scan which showed small bowel contained in this hernia. It appears that the fascia is intact anteriorly but there may be a defect posteriorly. I discussed repairing this laparoscopically. I also discussed having to possibly open to repair the hernia. I also discussed the risks of the surgery such as bleeding, infection, injury to other organs such as bowel or colon. The patient understands the risks and is willing to proceed. I will obtain her CT scan from outside hospital before surgery. Nash Knapp MD Pager: [facility] [address] [place] [address], [address] [place] [address] Office: I have examined the patient and the H&P has been reviewed. There are no clinical changes since date of exam.
[2025-07-23] MEDS: Lidocaine 1% (5 ml sdv) 5 ML Vial IV (10:42)
[2025-07-23] MEDS: Cefazolin 1 GM/5 ML Vial 2 GM IV (10:43)
[2025-07-23] MEDS: dexMEDEtomidine 200 MCG/2 ML ML 20 MCG IV (11:00)
[2025-07-23] MEDS: Bupiv/Epi 0.25% 30 ML Vial (11:36)
[2025-07-23] MEDS: fentaNYL 100 MCG/2 ML Ampul 150 MCG IV (11:47)
--- NOTE | 2025-07-23 11:57 | PCM.POST.ANE ---
Anesthesia: Postop Eval I Current Vital Signs Temperature: 97.3 F Pulse Rate: 74 Blood Pressure: 117/72 Respiratory Rate: 16 Pulse Ox: 94 Oxygen Delivery Method: Room Air Assessment Airway patent: Yes Spontaneous unlabored respirations: Yes Mental status: Asleep nausea: No Vomiting: No Anesthesia Complication: No Fluid Hydration Crystalloid volume administer (ml): 500 Total IV fluid infused: 500 Progress Note Anesthesia document: Postop Eval 1 completed: Yes
--- NOTE | 2025-07-23 13:03 | PCM.OPRPT ---
Operative Report (Standard) Operative Information Date of Procedure: 07/23/25 Pre-Operative Diagnosis: Ventral hernia Post-Operative Diagnosis: Ventral hernia 5 cm Surgery/Procedure Performed: Laparoscopic ventral hernia repair with mesh property management bookkeeper: Yes Certified Coding Specialist: Anup Akers Tasks completed by list of first job ideas: Opening & closing Type of Anesthesia: General/Regional RN Documented Start/Stop Times: Operation Date: 07/23/25 11:00 Case Time Into Pre-Op 07/23/25 09:23 Out of Pre-Op 07/23/25 10:33 Anesthesia Start 07/23/25 10:37 Into Room 07/23/25 10:37 Procedure Start 07/23/25 10:59 Procedure End 07/23/25 11:45 Anesthesia End 07/23/25 11:48 Out of Room 07/23/25 11:48 Into Recovery 07/23/25 11:50 Procedure Start Time: 10:59 Procedure Stop Time: 11:45 Select all DRAINS/GRAFTS/IMPLANTS that apply: Implanted device Implanted device details: [address] mesh Estimated Blood Loss: 10 Specimen collected: No Description of surgery: Patient was brought back to surgery and general anesthesia was induced. The abdomen was prepped and draped in usual sterile fashion. An incision was made in the right upper quadrant and the abdomen was entered using a Visiport technique. The abdomen was insufflated to 15 mmHg. Camera was placed into the abdomen. There was dense adhesions to the anterior abdominal wall. In the right lower quadrant a 5 mm ports placed as well as in the epigastric region. Harmonic scalpel was used to take down the adhesions to the anterior abdominal wall. 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 Using a Nikos Freitas needle and an 0 PDS suture the hernia defect was closed throughout puncture site over the hernia. Next an [address] mesh was placed through a port into the abdomen. The balloon was grasped with a Nikos Freitas needle and retracted upward and then the balloon was then filled. The mesh was tacked to the anterior abdominal wall in 4 quadrants using secure strap tacks. Next the balloon was removed from the abdomen. The mesh was tacked circumferentially to the anterior abdominal wall. Next the abdomen was allowed to desufflate and the ports were removed. The incisions were injected with local anesthetic and closed with interrupted 4-0 Monocryl sutures. Steri-Strips and bandages were applied. Patient was brought to PACU in stable condition and tolerated procedure well. Surgical Findings: Spigelian hernia Complications Complications: No Admit VTE Documentation VTE Mechan Device Prophylaxis: SCD's
--- NOTE | 2025-07-23 13:11 | EX.PCM.DISCH ---
Discharge Instructions Diet Discharge Diet: Light diet - advance as tolerated Activity Discharge Activity: May Not Drive (for 2-3 days or while taking narcotic pain meds.) and May Shower (with the bandage in place 1-2 days after surgery.) Lifting Restrictions: 20 pounds for 4 weeks Additional Activity Instructions:: Climbing stairs is fine, walking is encouraged. Sitting in bed may be uncomfortable. Sitting up using your lateral muscles (sitting up sideways) is usually more comfortable. Do not drive, work heavy equipment or sign legal documents for 24 hours. Pain medications may cause nausea, you should typically eat light foods as you take your pain medications. Pain medications may also cause constipation. If you have difficulty with this, discuss with your doctor. Alternate ibuprofen and Tylenol for pain control, oxycodone for breakthrough pain Dressing / Incision Call your doctor if your incision/area has: Continuous Slow Oozing, Sudden Increased Bleeding, Increased Pain/ Swelling, Increased Redness and Foul Smelling Discharge Call your doctor if you observe: Fever of 101 or Higher Suture Line Care: Avoid Pulling/Pushing and Avoid Pinching/Bending Remove Dressing in: 2 days (Remove clear bandages in 2 days, remove Steri-Strips in 7 to 10 days.) Cleanse incision/area with: Soap & Water Follow Up Care Please Follow Up With: Nash Knapp MD When: Please call to schedule 2 week follow up appointment. [phone] Test Results: Test results from this visit will be discussed in further detail at your follow-up appointment, if applicable. Discharge Plan Admission Attending Provider: Nash Knapp Primary Care Provider: Ondina Justin Instructions Print Language: Dutch Discharge Orders/Prescriptions Prescriptions: New oxycodone 5 mg Tablet 5 - 10 mg PO Q4H PRN PRN (Reason: Pain Score 4-10) 5 Days Qty: 20 0RF No Action trazodone 100 mg tablet 50 mg PO QHS PRN (Reason: insomnia) Qty: 90 1RF sumatriptan succinate 25 mg tablet 25 mg PO PRN PRN (Reason: MIGRAINES) Qty: 14 2RF ustekinumab [Stelara] 90 mg/mL syringe 90 mg subcut .q8w semaglutide (weight loss) 2.4 mg/0.75 mL pen injector 2.4 mg subcut MO duloxetine 30 mg capsule,delayed release(DR/EC) 30 mg PO BID Qty: 180 1RF Referrals / Follow Up: Ondina Justin MD [Primary Care Provider, Internal Medicine] Disposition Disposition (needs filled in before D/C Order can be placed): Home, Self Care
--- NOTE | 2025-07-23 16:07 | POSTOPAN2_ITS ---
Anesthesia Postop Eval I Sum Postop Eval Completion status Anesthesia document: Postop Eval 1 completed: Yes Anesthesia Postop Eval I Summary Anesthesia Postop Eval I Summary: Anesthesia Postop Eval I: Assessment Summary Airway patent Yes 07/23/25 11:58 PRODUCTION [email or web address] Spontaneous unlabored Yes 07/23/25 11:58 PRODUCTION [email or web address] respirations Mental status Asleep 07/23/25 11:58 PRODUCTION [email or web address] nausea No 07/23/25 11:58 PRODUCTION [email or web address].[email or web address] Vomiting No 07/23/25 11:58 PRODUCTION [email or web address] Anesthesia Postop Eval I: Fluid Summary Crystalloid volume administer 500 07/23/25 11:58 PRODUCTION [email or web address].[email or web address] (ml) Colloids volume administered ( ml) Blood Product volume administered (ml) Total IV fluid infused 500 07/23/25 11:58 PRODUCTION [email or web address].[email or web address] Anesthesia Postop Eval I: Summary Notes Anesthesia Complication No 07/23/25 11:58 PRODUCTION [email or web address].[email or web address] Anesthesia Complication Comment: Post-operative progress note Anesthesia: Postop Eval II Evaluation Mental status: Awake Pain Level: 0 nausea: No Vomiting: No Complications Anesthesia Complication: No
--- NOTE | 2025-07-23 16:07 | PCM.POSTANE2 ---
Anesthesia Postop Eval I Sum Postop Eval Completion status Anesthesia document: Postop Eval 1 completed: Yes Anesthesia Postop Eval I Summary Anesthesia Postop Eval I Summary: Anesthesia Postop Eval I: Assessment Summary Airway patent Yes 07/23/25 11:58 DEHYDRATION UNIT OPERATOR.[email or web address] Spontaneous unlabored Yes 07/23/25 11:58 DEHYDRATION UNIT OPERATOR.JDEF respirations Mental status Asleep 07/23/25 11:58 DEHYDRATION UNIT OPERATOR.JDEF nausea No 07/23/25 11:58 DEHYDRATION UNIT OPERATOR.JDEF Vomiting No 07/23/25 11:58 DEHYDRATION UNIT OPERATOR.JDEF Anesthesia Postop Eval I: Fluid Summary Crystalloid volume administer 500 07/23/25 11:58 DEHYDRATION UNIT OPERATOR.JDEF (ml) Colloids volume administered ( ml) Blood Product volume administered (ml) Total IV fluid infused 500 07/23/25 11:58 DEHYDRATION UNIT OPERATOR.JDEF Anesthesia Postop Eval I: Summary Notes Anesthesia Complication No 07/23/25 11:58 DEHYDRATION UNIT OPERATOR.JDEF Anesthesia Complication Comment: Post-operative progress note Anesthesia: Postop Eval II Evaluation Mental status: Awake Pain Level: 0 nausea: No Vomiting: No Complications Anesthesia Complication: No
== END 2025-07-23 15:19 | disposition home or self-care (01) ==
LOC: SDC 09:20 → AC 10:26
PROVIDERS: PCP Internal Medicine; Referring Provider Surgery; Visit Provider Surgery
PROC: 0WQF4ZZ Repair Abdominal Wall, Percutaneous Endoscopic Approach (ICD-10-PCS; CPT 49593; principal; 2025-07-23 10:40)
DX: K43.2 Incisional hernia without obstruction or gangrene (principal); I10 Essential (primary) hypertension; Z79.85 Long-term (current) use of injectable non-insulin antidiabetic drugs
CPT/HCPCS: 49593; 00750; C1781; J2405